=== PATIENT | female | born 1950 | race Caucasian/White ===

== ENCOUNTER 2017-04-10 13:14 | Inpatient (IN) | payer MEDICARE, OTHER ==
[~2017-04-10] VITALS: Ht 157.5 cm; Wt 76.9 kg
[2017-04-10] MEDS ORDERED: KETOROLAC TROMETH 30 MG/ML 1ML VIAL IV ONE (14:00)
[2017-04-10 14:24] LABS: Basophils # (auto) 0 uL; Basophils % (auto) 0.1 % (0.0-2.0); CONDITION Y; Eosinophils # (auto) 0 uL; Hematocrit 46.6 % (36.0-46.0); Hemoglobin 15.7 g/dL (12.2-16.2); Lymphocytes # (auto) 1.6 uL; Lymphocytes % (auto) 18.2 % (10.0-50.0); Mean Corpuscular Hemoglobin 30.9 pg (28.0-32.0); Mean Corpuscular Hgb Conc. 33.6 g/dL (32.0-36.0); Mean Platelet Volume 9.6 fL (7.4-10.4); Monocytes # (auto) 0.6 uL; Monocytes % (auto) 6.2 % (0.0-12.0); Neutrophils # (auto) 6.7 uL; Neutrophils % (auto) 75.5 % (37.0-80.0); Platelet Count (auto) 246 10^3/uL (140-450); Red Cell Distribution Width 13.3 % (11.6-16.0); SUSPECT SEE PRINTOUT; White Blood Cell 8.9 10^3/uL (4.4-10.8)
[2017-04-10 14:59] LABS: Albumin 3.6 g/dL (3.4-5.0); Bilirubin, Total 0.3 mg/dL (0.2-1.0); Calcium 9.2 mg/dL (8.5-10.1); Total Protein 6.8 g/dL (6.4-8.2)
[2017-04-10] MEDS ORDERED: ONDANSETRON HCL 4 MG/2 ML VIAL IV ONE (16:45)
[2017-04-10] MEDS ORDERED: MORPHINE SULFATE 4 MG/ML SYRG IV ONE (16:45)
[2017-04-10] MEDS ORDERED: ASPirin 81 mg TAB PO ONE (17:45)
[2017-04-10] MEDS ORDERED: ENOXAPARIN SOD 40 MG/0.4 ML SYRINGE SC ONE (17:45)
[2017-04-10 18:04] LABS: Urine Bilirubin Negative (Negative); Urine Blood Negative /uL (Negative); Urine Ca Oxalate Crystal MANY (None Seen); Urine Color Yellow (Yellow); Urine Glucose Normal (Normal); Urine Ketone Negative (Negative); Urine Mucus FEW (None Seen); Urine Nitrite Negative (Negative); Urine RBC 4 /hpf (0 - 4); Urine Squamous Epithelial Cell FEW /hpf (<5); Urine Urobilinogen Normal (Negative)
[2017-04-10] MEDS ORDERED: cefTRIAXone 1GM/50ML D5W 50 ML IV ONE (18:15)
[2017-04-10 20:30] VITALS: BP 88/42
[2017-04-10] MEDS: CLINDAMYCIN 600MG IV 50 ML IV SCH (21:51)
[2017-04-10] MEDS: HYDROcodone-ACET 5/325MG TAB PO PRN (21:55)
[2017-04-10] MEDS: BUDESONIDE (INHALATION) 0.5 MG/2 ML NEB NEB SCH (22:33)
[2017-04-10 22:46] VITALS: BP 88/42
[2017-04-11] MEDS: ONDANSETRON HCL 4 MG/2 ML VIAL IV PRN ×3 (00:29→22:20)
[2017-04-11] MEDS: MORPHINE SULF INJ 2 MG/ML SYRINGE 1ML IV PRN ×5 (00:29→22:20)
[2017-04-11 05:30] VITALS: BP 100/54
[2017-04-11] MEDS: CLINDAMYCIN 600MG IV 50 ML IV SCH ×3 (06:14→22:04)
[2017-04-11 08:00] VITALS: BP 111/63
[2017-04-11 09:00] VITALS: BP 111/63
[2017-04-11] MEDS: cefTRIAXone 1GM/50ML D5W 50 ML IV SCH (09:11)
[2017-04-11] MEDS: ENOXAPARIN SOD 40 MG/0.4 ML SYRINGE SC SCH (09:12)
[2017-04-11] MEDS: ASPirin 81 mg TAB PO SCH (09:12)
[2017-04-11] MEDS: BUDESONIDE (INHALATION) 0.5 MG/2 ML NEB NEB SCH ×2 (11:29→22:55)
[2017-04-11] MEDS: ALBUTEROL SULF 2.5 MG/0.5ML(0.5%) NEB SOLN NEB PRN (11:29)
[2017-04-11] MEDS ORDERED: ALBUTEROL SULF 2 MG/5ML ORAL SYRUP PO PRN (11:45)
[2017-04-11 13:00] VITALS: BP 110/62
[2017-04-11] MEDS ORDERED: MODA200T41 PO (14:31)
[2017-04-11] MEDS ORDERED: DEXT10TA PO (14:31)
[2017-04-11] MEDS ORDERED: MONT10TA34 PO (14:31)
[2017-04-11] MEDS ORDERED: ALBU2TAB4 PO (14:31)
[2017-04-11] MEDS ORDERED: VORT1TAB3 PO (14:31)
[2017-04-11] MEDS ORDERED: CYAN100023 PO (14:31)
[2017-04-11] MEDS ORDERED: LEVO750T64 PO (14:31)
[2017-04-11] MEDS ORDERED: FLUT250M2 IN (14:31)
[2017-04-11 16:49] VITALS: BP 117/51
[2017-04-11 22:00] VITALS: BP 119/75
[2017-04-12] VITALS (7 sets, daily range): BP systolic 96–130; BP diastolic 52–73
[2017-04-12] MEDS: MORPHINE SULF INJ 2 MG/ML SYRINGE 1ML IV PRN ×5 (04:39→21:59)
[2017-04-12] MEDS: ONDANSETRON HCL 4 MG/2 ML VIAL IV PRN (04:40)
[2017-04-12] MEDS: CLINDAMYCIN 600MG IV 50 ML IV SCH ×3 (05:51→21:58)
[2017-04-12] MEDS: cefTRIAXone 1GM/50ML D5W 50 ML IV SCH (09:02)
[2017-04-12] MEDS: ASPirin 81 mg TAB PO SCH (09:40)
[2017-04-12] MEDS: ENOXAPARIN SOD 40 MG/0.4 ML SYRINGE SC SCH (09:40)
[2017-04-12] MEDS: MODAFINIL 200 MG PO SCH (09:41)
[2017-04-12] MEDS: BUDESONIDE (INHALATION) 0.5 MG/2 ML NEB NEB SCH ×2 (09:57→22:00)
[2017-04-12] MEDS: ALBUTEROL SULF 2.5 MG/0.5ML(0.5%) NEB SOLN NEB PRN (09:57)
[2017-04-12] MEDS ORDERED: VORT1TAB3 PO (12:11)
[2017-04-12] MEDS ORDERED: DEXT10TA PO (12:11)
[2017-04-12] MEDS ORDERED: LEVOFLOXACIN 500 MG TAB PO ONE (12:15)
[2017-04-12] MEDS: HYDROcodone-ACET 5/325MG TAB PO PRN ×2 (14:50→20:51)
[2017-04-12] MEDS ORDERED: FLEET ENEMA(ADULT) 135 ML PR ONE (23:00)
[2017-04-13] MEDS: MORPHINE SULF INJ 2 MG/ML SYRINGE 1ML IV PRN ×3 (02:02→13:52)
[2017-04-13 05:30] VITALS: BP 128/65
[2017-04-13] MEDS: CLINDAMYCIN 600MG IV 50 ML IV SCH (05:58)
[2017-04-13 09:00] VITALS: BP 117/64
[2017-04-13] MEDS: cefTRIAXone 1GM/50ML D5W 50 ML IV SCH (09:21)
[2017-04-13] MEDS: ASPirin 81 mg TAB PO SCH (09:21)
[2017-04-13] MEDS: ENOXAPARIN SOD 40 MG/0.4 ML SYRINGE SC SCH (09:22)
[2017-04-13] MEDS: BUDESONIDE (INHALATION) 0.5 MG/2 ML NEB NEB SCH (10:00)
[2017-04-13] MEDS ORDERED: DEXTROAMPHETAMINE PO SCH (10:00)
[2017-04-13] MEDS ORDERED: TRINTELLIX 20MG PO SCH (10:00)
[2017-04-13] MEDS: MODAFINIL 200 MG PO SCH (10:00)
[2017-04-13 13:33] VITALS: BP 117/64
== END 2017-04-13 14:30 | DRG 544 ==
LOC: ER 13:16 → TELE 13:17 → WEST WING 20:18
PROVIDERS: ADMIT Internal Medicine; ATTEND Internal Medicine
DX: M84.471A Pathological fracture, right ankle, initial encounter for fracture (principal); G47.419 Narcolepsy without cataplexy; I83.90 Asymptomatic varicose veins of unspecified lower extremity; M17.11 Unilateral primary osteoarthritis, right knee; M25.471 Effusion, right ankle; J45.909 Unspecified asthma, uncomplicated; Z88.2 Allergy status to sulfonamides; Z88.0 Allergy status to penicillin; Z90.710 Acquired absence of both cervix and uterus; Z90.49 Acquired absence of other specified parts of digestive tract
CPT/HCPCS: 36415; 73590; 73721; 80053; 81001; 84439; 84443; 85025; 85379; 93306; 93971; 94640; 94761; 97163; J0696; J1885; J2405; J3490

== ENCOUNTER 2017-11-20 08:13 | Inpatient (IN) | payer OTHER ==
[~2017-11-20] VITALS: Ht 154.9 cm; Wt 81.8 kg
[~2017-11-20 08:13] MED LIST: ACYC400T PO; ALBU2TAB4 PO; ALBUAER3 IN; ALEN70TA55 PO; CETI10TA80 PO; CYAN1KIT IJ; DEXT10TA PO; FER325T PO; FLUT250M2 INH; HYDR-4683 PO; LEVO25TA6 PO; MODA200T50 PO; MONT10TA34 PO; MULTTAB61 PO; TIZA4TAB9 PO; VORT1TAB3 PO
[2017-11-20] MEDS ORDERED: PREGABALIN CAPSULE 75 MG CAP PO ONE (08:45)
[2017-11-20] MEDS ORDERED: ACETAMINOPHEN IV 1000 MG/100ML (10MG/ML) IV ONE (08:45)
[2017-11-20] MEDS ORDERED: CELECOXIB 100 MG CAP PO ONE (08:45)
[2017-11-20] MEDS ORDERED: LIDOCAINE 1% (LOCAL ANESTH.) PF 5ml SDV ONE (09:56)
[2017-11-20] MEDS ORDERED: ROPIVACAINE 0.5% (5MG/ML) 20ML AMPULE IJ ONE (09:56)
[2017-11-20] MEDS ORDERED: BUPIVACAINE W/ EPINEPH 0.25% INJ 50ML MDV ONE (10:29)
[2017-11-20] MEDS ORDERED: TRANEXAMIC ACID 1,000 mg/10ml INJ VIAL ONE (10:29)
[2017-11-20] MEDS ORDERED: KETOROLAC TROMETH 30 MG/ML 1ML VIAL ONE (10:32)
[2017-11-20] MEDS ORDERED: MORPHINE SULF(PF) 0.5MG/ML 10ML VIAL ONE (10:32)
[2017-11-20] MEDS ORDERED: VANCOMYCIN HCL 1000 MG VL ONE (10:32)
[2017-11-20] MEDS ORDERED: ceFAZolin 1GM/50ML 100 ML IV ONE (10:39)
[2017-11-20] MEDS ORDERED: SUCCINYLCHOLINE CHLORIDE 20 MG/ML 10ML VIAL IV ONE (10:40)
[2017-11-20] MEDS ORDERED: MIDAZOLAM HCL 1MG/1ML-2 ML VIAL ONE ×2 (10:42→13:50)
[2017-11-20] MEDS ORDERED: PROPOFOL 10 MG/ML 20 ML IV ONE ×2 (10:48→10:49)
[2017-11-20] MEDS ORDERED: ROCURONIUM 10MG/ML 10ML VIAL IV ONE (10:49)
[2017-11-20] MEDS ORDERED: fentaNYL CITRATE 100 MCG/2 ML VL ONE ×2 (11:03→11:56)
[2017-11-20] MEDS ORDERED: NALOXONE HCL 0.4 MG/ML VIAL IV PRN (11:30)
[2017-11-20] MEDS ORDERED: ONDANSETRON HCL 4 MG/2 ML VIAL IV ONE (11:30)
[2017-11-20] MEDS ORDERED: ceFAZolin 1GM VL ONE (11:35)
[2017-11-20] MEDS ORDERED: hydrALAZINE HCL 20 MG/ML VL ONE (12:04)
[2017-11-20] MEDS ORDERED: ALBUTEROL SULFATE IN SCH (13:45)
[2017-11-20] MEDS ORDERED: LORATADINE 10 MG TAB PO PRN (13:45)
[2017-11-20] MEDS: LACTATED RINGER'S 1,000 ML IV SCH ×2 (13:47→23:47)
[2017-11-20] MEDS: MORPHINE SULFATE 4 MG/ML SYR/VIAL IV PRN ×4 (13:48→15:08)
[2017-11-20] MEDS: MIDAZOLAM HCL 1MG/1ML-2 ML VIAL IV PRN ×3 (13:54→14:55)
[2017-11-20] MEDS ORDERED: ACETAMINOPHEN 325 MG TAB PO PRN (14:00)
[2017-11-20] MEDS ORDERED: diphenhdrAMINE HCL 25 MG CAP PO PRN (14:00)
[2017-11-20] MEDS ORDERED: HYDROmorphone HCL 2 MG/ML VL IV PRN (14:00)
[2017-11-20] MEDS ORDERED: BISACODYL 5 MG EC TAB PO PRN (14:00)
[2017-11-20] MEDS ORDERED: NITROGLYCERIN 0.4 MG SL TAB SL PRN (14:00)
[2017-11-20] MEDS ORDERED: MORPHINE SULFATE 4 MG/ML SYR/VIAL IV PRN ×2 (14:00)
[2017-11-20 16:47] VITALS: BP 135/82
[2017-11-20] MEDS ORDERED: ALBUTEROL SULF 2.5 MG/0.5ML(0.5%) NEB SOLN NEB PRN (18:00)
[2017-11-20] MEDS: ceFAZolin 1GM/50ML 50 ML IV SCH (18:40)
[2017-11-20] MEDS: KETOROLAC TROMETH 30 MG/ML 1ML VIAL IV SCH (18:40)
[2017-11-20 19:50] VITALS: BP 132/72
[2017-11-20] MEDS: DOCUSATE SOD 100 MG CAP PO SCH (21:56)
[2017-11-20] MEDS: oxyCODONE ER 20 MG TAB PO SCH (21:56)
[2017-11-20] MEDS: TIZANIDINE 4 MG PO SCH (21:57)
[2017-11-20 22:00] VITALS: BP 132/72
[2017-11-20] MEDS ORDERED: PATIENTS OWN MEDICATION (Fluticasone-Salmeterol (Advair Diskus 250/50) 1 PUFF) INH SCH (22:00)
[2017-11-20] MEDS: BUDESONIDE (INHALATION) 0.5 MG/2 ML NEB NEB SCH (22:17)
[2017-11-20] MEDS: ALBUTEROL SULF 2.5 MG/0.5ML(0.5%) NEB SOLN NEB SCH (22:17)
[2017-11-20 22:21] VITALS: BP 135/82
[2017-11-21] MEDS: KETOROLAC TROMETH 30 MG/ML 1ML VIAL IV SCH ×4 (00:48→18:23)
[2017-11-21] MEDS: ceFAZolin 1GM/50ML 50 ML IV SCH ×2 (00:48→06:20)
[2017-11-21] MEDS: OXYCODONE W/ ACETAMINOPHEN 5/325MG TABLET PO PRN ×3 (04:56→16:54)
[2017-11-21 05:00] VITALS: BP 126/76
[2017-11-21] MEDS: LEVOTHYROXINE SODIUM 25 MCG TAB PO SCH (06:21)
[2017-11-21] MEDS: ALBUTEROL SULF 2.5 MG/0.5ML(0.5%) NEB SOLN NEB SCH ×3 (06:38→19:02)
[2017-11-21 06:59] LABS: Albumin 3.2 g/dL (3.4-5.0); BUN/Creatinine Ratio 36.4; Bilirubin, Total 0.7 mg/dL (0.2-1.0); Calcium 7.9 mg/dL (8.5-10.1); Potassium 3.8 mmol/L (3.5-5.1); Total Protein 5.8 g/dL (6.4-8.2)
[2017-11-21 07:09] LABS: Basophils # (auto) 0 uL; Basophils % (auto) 0.1 % (0.0-2.0); Eosinophils # (auto) 0 uL; Eosinophils % (auto) 0.2 % (0.0-7.0); Hematocrit 38.6 % (36.0-46.0); Hemoglobin 13.1 g/dL (12.2-16.2); Lymphocytes % (auto) 9.2 % (10.0-50.0); Mean Corpuscular Hemoglobin 32.1 pg (28.0-32.0); Mean Corpuscular Hgb Conc. 33.9 g/dL (32.0-36.0); Mean Corpuscular Volume 94.5 fL (80.0-100.0); Monocytes % (auto) 9.1 % (0.0-12.0); Neutrophils # (auto) 8.8 uL; Neutrophils % (auto) 81.4 % (37.0-80.0); Platelet Count (auto) 169 10^3/uL (140-450); Red Blood Cells 4.09 10^6/uL (4.0-5.20); Red Cell Distribution Width 13.8 % (11.8-14.3); White Blood Cell 10.8 10^3/uL (4.4-10.8)
[2017-11-21] MEDS: MORPHINE SULFATE 4 MG/ML SYR/VIAL IV PRN ×7 (07:20→20:53)
[2017-11-21 09:00] VITALS: BP 125/58
[2017-11-21] MEDS: LACTATED RINGER'S 1,000 ML IV SCH ×2 (09:40→19:47)
[2017-11-21] MEDS: MULTIPLE VITAMIN TAB PO SCH (09:43)
[2017-11-21] MEDS: ACYCLOVIR 400 MG TAB PO SCH (09:43)
[2017-11-21] MEDS: FERROUS SULFATE 325 MG TAB PO SCH (09:43)
[2017-11-21] MEDS: MONTELUKAST SODIUM 10 MG TAB PO SCH (09:43)
[2017-11-21] MEDS: DOCUSATE SOD 100 MG CAP PO SCH ×2 (09:43→22:01)
[2017-11-21] MEDS: oxyCODONE ER 20 MG TAB PO SCH ×2 (09:44→22:01)
[2017-11-21] MEDS: ENOXAPARIN SOD 30 MG/0.3 ML SYRINGE SC SCH (09:46)
[2017-11-21] MEDS: DEXTROAMPHETAMINE SULFATE 30 MG PO SCH (09:47)
[2017-11-21] MEDS: TIZANIDINE 4 MG PO SCH ×2 (09:47→22:00)
[2017-11-21] MEDS: BUDESONIDE (INHALATION) 0.5 MG/2 ML NEB NEB SCH ×2 (10:20→19:02)
[2017-11-21] MEDS: ONDANSETRON HCL 4 MG/2 ML VIAL IV PRN (11:00)
[2017-11-21] MEDS: VORTIOXETINE 20 MG PO SCH (12:06)
[2017-11-21] MEDS ORDERED: MORPHINE SULFATE 4 MG/ML SYR/VIAL ONE (12:59)
[2017-11-21 13:00] VITALS: BP 136/85
[2017-11-21 21:56] VITALS: BP 117/59
[2017-11-22] MEDS: KETOROLAC TROMETH 30 MG/ML 1ML VIAL IV SCH (00:15)
[2017-11-22] MEDS: MORPHINE SULFATE 4 MG/ML SYR/VIAL IV PRN ×6 (01:34→19:52)
[2017-11-22 05:08] VITALS: BP 111/61
[2017-11-22] MEDS: LACTATED RINGER'S 1,000 ML IV SCH ×2 (05:29→15:16)
[2017-11-22] MEDS ORDERED: ALENDRONATE 70 MG PO SCH (06:00)
[2017-11-22] MEDS: LEVOTHYROXINE SODIUM 25 MCG TAB PO SCH (06:07)
[2017-11-22] MEDS: OXYCODONE W/ ACETAMINOPHEN 5/325MG TABLET PO PRN (06:07)
[2017-11-22] MEDS ORDERED: HYDROcodone-ACET 10/325MG TAB PO ONE (07:15)
[2017-11-22] MEDS: ALBUTEROL SULF 2.5 MG/0.5ML(0.5%) NEB SOLN NEB SCH ×3 (07:52→22:37)
[2017-11-22] MEDS: BUDESONIDE (INHALATION) 0.5 MG/2 ML NEB NEB SCH ×2 (08:05→22:37)
[2017-11-22] MEDS: HYDROcodone-ACET 10/325MG TAB PO PRN ×3 (08:51→22:19)
[2017-11-22 09:00] VITALS: BP 107/56
[2017-11-22] MEDS: TIZANIDINE 4 MG PO SCH ×2 (10:00→22:00)
[2017-11-22] MEDS: DEXTROAMPHETAMINE SULFATE 30 MG PO SCH (10:00)
[2017-11-22] MEDS: MULTIPLE VITAMIN TAB PO SCH (10:30)
[2017-11-22] MEDS: FERROUS SULFATE 325 MG TAB PO SCH (10:30)
[2017-11-22] MEDS: ACYCLOVIR 400 MG TAB PO SCH (10:30)
[2017-11-22] MEDS: MONTELUKAST SODIUM 10 MG TAB PO SCH (10:30)
[2017-11-22] MEDS: oxyCODONE ER 20 MG TAB PO SCH ×2 (10:30→22:04)
[2017-11-22] MEDS: DOCUSATE SOD 100 MG CAP PO SCH ×2 (10:30→22:04)
[2017-11-22] MEDS: VORTIOXETINE 20 MG PO SCH (10:31)
[2017-11-22] MEDS: ENOXAPARIN SOD 30 MG/0.3 ML SYRINGE SC SCH (10:33)
[2017-11-22 12:00] VITALS: BP 89/44
[2017-11-22] MEDS: traMADol HCL 50 MG TAB PO PRN ×2 (12:08→18:45)
[2017-11-22] MEDS: ONDANSETRON HCL 4 MG/2 ML VIAL IV PRN (13:50)
[2017-11-22 15:00] VITALS: BP 82/49
[2017-11-22 22:00] VITALS: BP 111/55
[2017-11-23] VITALS (7 sets, daily range): BP systolic 88–137; BP diastolic 32–56
[2017-11-23] MEDS: LACTATED RINGER'S 1,000 ML IV SCH ×2 (00:29→13:32)
[2017-11-23] MEDS: MORPHINE SULFATE 4 MG/ML SYR/VIAL IV PRN ×6 (01:55→20:02)
[2017-11-23] MEDS: traMADol HCL 50 MG TAB PO PRN ×2 (03:16→15:17)
[2017-11-23] MEDS: ALBUTEROL SULF 2.5 MG/0.5ML(0.5%) NEB SOLN NEB SCH ×2 (06:00→22:00)
[2017-11-23] MEDS: HYDROcodone-ACET 10/325MG TAB PO PRN ×3 (06:02→15:52)
[2017-11-23] MEDS: BUDESONIDE (INHALATION) 0.5 MG/2 ML NEB NEB SCH ×2 (07:31→22:00)
[2017-11-23] MEDS: LEVOTHYROXINE SODIUM 25 MCG TAB PO SCH (08:42)
[2017-11-23] MEDS: FERROUS SULFATE 325 MG TAB PO SCH (09:13)
[2017-11-23] MEDS: MULTIPLE VITAMIN TAB PO SCH (09:13)
[2017-11-23] MEDS: DOCUSATE SOD 100 MG CAP PO SCH ×2 (09:13→22:10)
[2017-11-23] MEDS: MONTELUKAST SODIUM 10 MG TAB PO SCH (09:13)
[2017-11-23] MEDS: oxyCODONE ER 20 MG TAB PO SCH ×2 (09:14→22:11)
[2017-11-23] MEDS: VORTIOXETINE 20 MG PO SCH (09:14)
[2017-11-23] MEDS: TIZANIDINE 4 MG PO SCH ×2 (09:15→22:00)
[2017-11-23] MEDS: ENOXAPARIN SOD 30 MG/0.3 ML SYRINGE SC SCH (09:15)
[2017-11-23] MEDS: DEXTROAMPHETAMINE SULFATE 30 MG PO SCH (10:00)
[2017-11-23] MEDS: ACYCLOVIR 400 MG TAB PO SCH (15:00)
[2017-11-24] MEDS: MORPHINE SULFATE 4 MG/ML SYR/VIAL IV PRN ×4 (00:32→11:13)
[2017-11-24 05:00] VITALS: BP 124/64
[2017-11-24] MEDS: LEVOTHYROXINE SODIUM 25 MCG TAB PO SCH (06:36)
[2017-11-24] MEDS: ALBUTEROL SULF 2.5 MG/0.5ML(0.5%) NEB SOLN NEB SCH (06:38)
[2017-11-24] MEDS: BUDESONIDE (INHALATION) 0.5 MG/2 ML NEB NEB SCH (06:38)
[2017-11-24] MEDS ORDERED: DIAZEPAM 5 MG TAB PO PRN (07:30)
[2017-11-24 08:59] VITALS: BP 125/65
[2017-11-24] MEDS: MULTIPLE VITAMIN TAB PO SCH (09:52)
[2017-11-24] MEDS: FERROUS SULFATE 325 MG TAB PO SCH (09:52)
[2017-11-24] MEDS: oxyCODONE ER 20 MG TAB PO SCH (09:52)
[2017-11-24] MEDS: DOCUSATE SOD 100 MG CAP PO SCH (09:52)
[2017-11-24] MEDS: MONTELUKAST SODIUM 10 MG TAB PO SCH (09:52)
[2017-11-24] MEDS: ENOXAPARIN SOD 30 MG/0.3 ML SYRINGE SC SCH (09:53)
[2017-11-24] MEDS: ACYCLOVIR 400 MG TAB PO SCH (09:53)
[2017-11-24] MEDS: DEXTROAMPHETAMINE SULFATE 30 MG PO SCH (10:00)
[2017-11-24] MEDS: VORTIOXETINE 20 MG PO SCH (10:00)
[2017-11-24] MEDS: TIZANIDINE 4 MG PO SCH (10:00)
[2017-11-24] MEDS: ONDANSETRON HCL 4 MG/2 ML VIAL IV PRN (10:09)
[2017-11-24 13:00] VITALS: BP 102/51
== END 2017-11-24 13:38 | disposition home health service (06) | DRG 470 ==
LOC: SUR 08:13 → WEST WING 08:14
PROVIDERS: ADMIT Orthopaedic Surgery Adult Reconstructive Orthopaedic Surgery; ATTEND Orthopaedic Surgery Adult Reconstructive Orthopaedic Surgery
PROC: 0SRC0J9 Replacement of Right Knee Joint with Synthetic Substitute, Cemented, Open Approach (ICD-10-PCS; principal; 2017-11-21)
DX: M17.11 Unilateral primary osteoarthritis, right knee (principal); J44.9 Chronic obstructive pulmonary disease, unspecified; E03.9 Hypothyroidism, unspecified; M81.0 Age-related osteoporosis without current pathological fracture; G89.29 Other chronic pain; Z90.710 Acquired absence of both cervix and uterus; Z88.0 Allergy status to penicillin; F43.10 Post-traumatic stress disorder, unspecified; G47.419 Narcolepsy without cataplexy
CPT/HCPCS: 36415; 73562; 80053; 85025; 94640; 97116; 97163; 97530; C1713; J0131; J0330; J0690; J1885; J2250; J2405; J2704

== ENCOUNTER 2017-12-18 15:15 | Emergency (ER) | payer OTHER ==
[~2017-12-18] VITALS: Ht 157.5 cm; Wt 67.6 kg
[2017-12-18 16:48] LABS: Basophils # (auto) 0 uL; Basophils % (auto) 0.7 % (0.0-2.0); Eosinophils # (auto) 0.4 uL; Eosinophils % (auto) 5.9 % (0.0-7.0); Hematocrit 39.6 % (36.0-46.0); Hemoglobin 12.8 g/dL (12.2-16.2); Lymphocytes # (auto) 2.2 uL; Lymphocytes % (auto) 34.2 % (10.0-50.0); Mean Corpuscular Hemoglobin 30.7 pg (28.0-32.0); Mean Corpuscular Hgb Conc. 32.4 g/dL (32.0-36.0); Mean Corpuscular Volume 94.8 fL (80.0-100.0); Monocytes # (auto) 0.4 uL; Monocytes % (auto) 6.5 % (0.0-12.0); Neutrophils # (auto) 3.4 uL; Neutrophils % (auto) 52.7 % (37.0-80.0); Platelet Count (auto) 236 10^3/uL (140-450); Red Blood Cells 4.18 10^6/uL (4.0-5.20); Red Cell Distribution Width 15.2 % (11.8-14.3); White Blood Cell 6.4 10^3/uL (4.4-10.8)
[2017-12-18 17:00] VITALS: BP 121/75
[2017-12-18 17:12] LABS: Albumin 3.6 g/dL (3.4-5.0); Bilirubin, Total 0.3 mg/dL (0.2-1.0); Potassium 4.2 mmol/L (3.5-5.1); Total Protein 7.1 g/dL (6.4-8.2)
== END 2017-12-18 18:19 | disposition home or self-care (01) ==
LOC: ER 15:15
DX: M79.604 Pain in right leg (principal); J45.909 Unspecified asthma, uncomplicated; E07.9 Disorder of thyroid, unspecified; Z88.1 Allergy status to other antibiotic agents; Z88.0 Allergy status to penicillin; Z86.718 Personal history of other venous thrombosis and embolism; Z96.651 Presence of right artificial knee joint
CPT/HCPCS: 36415; 80053; 85025; 93005; 93971

== ENCOUNTER 2019-07-21 14:42 | Inpatient (IN) | payer OTHER ==
[~2019-07-21] VITALS: Ht 157.5 cm; Wt 89.5 kg
[~2019-07-21 14:42] MED LIST changes: +ACYC-161 PO; -ACYC400T PO; +ALEN1TAB32 PO; -ALEN70TA55 PO; -HYDR-4683 PO; +HYDR-4833 PO
[2019-07-21] MEDS ORDERED: ONDANSETRON HCL 4 MG/2 ML VIAL IV ONE ×2 (15:30→18:15)
[2019-07-21] MEDS ORDERED: TETANUS-DIPTH-ACEL PERTUSSIS 0.5ML SYRG IM ONE (15:30)
[2019-07-21] MEDS ORDERED: MORPHINE SULF INJ 2 MG/ML SYRINGE 1ML IV ONE ×2 (15:30→18:15)
[2019-07-21] MEDS ORDERED: SODIUM CHLORIDE 0.9% 1,000 ML IVB ONE (18:12)
[2019-07-21 19:10] LABS: Basophils # (auto) 0 uL; Basophils % (auto) 0.5 % (0.0-2.0); Eosinophils # (auto) 0.2 uL; Eosinophils % (auto) 2.1 % (0.0-7.0); Hematocrit 41.7 % (36.0-46.0); Hemoglobin 13.9 g/dL (12.2-16.2); Lymphocytes # (auto) 2.1 uL; Lymphocytes % (auto) 24.4 % (10.0-50.0); Mean Corpuscular Hemoglobin 32.1 pg (28.0-32.0); Mean Corpuscular Hgb Conc. 33.3 g/dL (32.0-36.0); Mean Corpuscular Volume 96.3 fL (80.0-100.0); Monocytes # (auto) 0.7 uL; Monocytes % (auto) 8.6 % (0.0-12.0); Neutrophils # (auto) 5.6 uL; Neutrophils % (auto) 64.4 % (37.0-80.0); Platelet Count (auto) 182 10^3/uL (140-450); Red Blood Cells 4.33 10^6/uL (4.0-5.20); Red Cell Distribution Width 13.9 % (11.8-14.3); White Blood Cell 8.7 10^3/uL (4.4-10.8)
[2019-07-21 19:27] LABS: Albumin 3.6 g/dL (3.4-5.0); BUN/Creatinine Ratio 33.7; Calcium 8.5 mg/dL (8.5-10.1); Magnesium 2.5 mg/dL (1.6-2.6); Potassium 3.9 mmol/L (3.5-5.1)
[2019-07-21 19:31] LABS: Bilirubin, Total 0.4 mg/dL (0.2-1.0); Total Protein 6.4 g/dL (6.4-8.2)
[2019-07-21] MEDS ORDERED: HYDROcodone-ACET 5/325MG TAB PO PRN (20:00)
[2019-07-21] MEDS ORDERED: ALBUTEROL SULF 2.5 MG/0.5ML(0.5%) NEB SOLN NEB PRN (20:00)
[2019-07-21] MEDS ORDERED: ONDANSETRON HCL 4 MG/2 ML VIAL IV PRN (20:00)
[2019-07-21] MEDS ORDERED: ACETAMINOPHEN 500 MG TAB PO PRN (20:00)
[2019-07-21] MEDS ORDERED: IPRATROPIUM BROM 0.5 MG/2.5ML INH SOL NEB PRN (20:00)
[2019-07-21 20:30] VITALS: BP 116/44
[2019-07-21 21:35] VITALS: BP 108/62
--- NOTE | 2019-07-21 21:35 | NUR ---
MS admit from ER [place] admitted to tele/MS after SBAR received. Patient oriented to VERA ADAN, RN primary RN, [place] unit,287 room, A bed, and unit policies regarding patient care and visiting hours. Patient weighed by bedscale and encouraged to call if they need something. All questions and concerns addressed, patient verbalized understanding. Patient complain of pain due to mechanical fall will administer pain medication PRN by MD orders.
--- NOTE | 2019-07-21 21:59 | NUR ---
Page Hospitalist Patrizia. Need a diet order.
--- NOTE | 2019-07-21 22:02 | NUR ---
Hospitalist Kelly called back. Orders of Regular Diet.
--- NOTE | 2019-07-21 22:32 | NUR ---
Respiratory note: ASSESSED PT FOR PRN MED NEB AT THIS TIME, PT DENIES SOB AT THIS TIME, NO RESP DISTRESS NOTED, NO TX INDICATED, PULSE OX 97% ON RA, HR 68, RR 22, BILATERAL BS CLEAR.
[2019-07-21] MEDS: MORPHINE SULF INJ 2 MG/ML SYRINGE 1ML IV PRN (22:35)
--- NOTE | 2019-07-22 | NUR ---
Josephine hospitalist due to patient in severe pain after PRN pain medication. Waiting to call back
--- NOTE | 2019-07-22 00:11 | NUR ---
Hospitalist Kelly called back. Order one time dose of Morphine 2mg IV and morning labs of CBC. Hospitalist wants to be notify if pain is not manage after morphine reassessment. Repeated orders to verify. Will follow as order.
[2019-07-22] MEDS ORDERED: MORPHINE SULF INJ 2 MG/ML SYRINGE 1ML IV ONE (00:30)
--- NOTE | 2019-07-22 01:18 | NUR ---
Josephine hospitalist about patient's pain management not meant. Pain remind the same. Hospitalist Kelly order a one time dose of Dilaudid 1mg Iv. Repeated orders to verified. Will follow as instructed.
[2019-07-22] MEDS ORDERED: HYDROmorphone HCL 2 MG/ML VL IM ONE (01:30)
[2019-07-22] MEDS ORDERED: HYDROmorphone HCL 2 MG/ML VL IV ONE (01:30)
[2019-07-22 04:54] VITALS: BP 87/50
--- NOTE | 2019-07-22 05:00 | NUR ---
Josephine Hospitalist about patient low BP 87/49, Order a bolus of 500 ml of normal saline one time dose and to reassess her BP pressure manually. Read orders to verify.
--- NOTE | 2019-07-22 05:45 | NUR ---
Reassess patient blood pressure 112/51
[2019-07-22 05:55] LABS: Basophils # (auto) 0 uL; Basophils % (auto) 0.6 % (0.0-2.0); Eosinophils # (auto) 0.3 uL; Eosinophils % (auto) 4.3 % (0.0-7.0); Hematocrit 35.1 % (36.0-46.0); Lymphocytes % (auto) 29.1 % (10.0-50.0); Mean Corpuscular Hgb Conc. 34.3 g/dL (32.0-36.0); Mean Corpuscular Volume 96.3 fL (80.0-100.0); Monocytes # (auto) 0.6 uL; Monocytes % (auto) 8.8 % (0.0-12.0); Neutrophils # (auto) 3.9 uL; Neutrophils % (auto) 57.2 % (37.0-80.0); Platelet Count (auto) 172 10^3/uL (140-450); Red Blood Cells 3.64 10^6/uL (4.0-5.20); Red Cell Distribution Width 13.7 % (11.8-14.3); White Blood Cell 6.8 10^3/uL (4.4-10.8)
[2019-07-22] MEDS ORDERED: SODIUM CHLORIDE 0.9% 500 ML IV ONE (06:15)
[2019-07-22] MEDS: MORPHINE SULF INJ 2 MG/ML SYRINGE 1ML IV PRN ×3 (07:02→15:55)
--- NOTE | 2019-07-22 07:14 | NUR ---
Opening Shift Note Assumed care of patient, awake and alert. No S/S of distress/SOB or pain. Instructed on POC and to call for assist PRN, will continue to monitor for changes Q1hr and PRN.
[2019-07-22 08:14] VITALS: BP 90/59
--- NOTE | 2019-07-22 08:30 | NUR ---
Respiratory note: PT IS AWAKE, AND ALERT. NO RESPIRATORY DISTRESS NOTED. SPO2 95% ON RA, HR 73, RR 18, BS CLEAR BILATERALLY. NO PRN MEDNEB TX INDICATED AT THIS TIME. PT INFORMED TO PUSH CALL BUTTON IF INCREASED WOB, SOB, OR WHEEZING OCCURS.
--- NOTE | 2019-07-22 08:51 | NUR ---
per pt her blood pressure typical runs low because she is off her narcolepsy meds, pt has list at bedside
[2019-07-22 09:00] VITALS: BP 112/51
[2019-07-22] MEDS: FAMOTIDINE 20 MG TAB PO SCH (09:56)
--- NOTE | 2019-07-22 11:06 | NUR ---
updated pt on md assigned for todays care and also updated pt that i will ask md for stronger pain management and vte prophylaxis, pt also requested a room change due to noisy roomate and visitors charge nurse made aware
[2019-07-22 13:00] VITALS: BP 91/46
--- NOTE | 2019-07-22 14:00 | NUR ---
CALLED MD CHANDLER FOR PAIN MNGT ORDER
--- NOTE | 2019-07-22 14:15 | NUR ---
MD CHANDLER CALLLED BACK NEW ORDERS NTED DENIED DILAUDID REQUEST, UPDATED PT PT WANTS TO SPEAK TO CHARGE NURSE AND DIRECTOR, CHARGE NURSE NOTIFIED
--- NOTE | 2019-07-22 14:27 | NUR ---
RECIEVED CALL FROM [facility] STATED PT CALLED THEM WITH DISSATISFACTION OF CASSIA
[2019-07-22] MEDS ORDERED: OXYCODONE W/ ACETAMINOPHEN 5/325MG TABLET ONE (14:36)
[2019-07-22] MEDS: OXYCODONE W/ ACETAMINOPHEN 5/325MG TABLET PO PRN ×2 (14:39→20:29)
--- NOTE | 2019-07-22 14:55 | NUR ---
CHARGE NURSE WENT TO PT ROOM TO TALK AND PT WAS ON PHONE TOLD HER TO COME BACK LATER
--- NOTE | 2019-07-22 15:20 | NUR ---
WOUND CARE NOTE: Wound care consult received for hematoma. Patient is a 69 yo female admitted s/p mechanical fall and large gluteal/sacral hematoma. Patient with a history of asthma, DJD of bilateral knees, appy, hysterectomy and total bilateral hip replacement. Patient is alert and is currently in pain and is awaiting medication. Patient seen with bedside RN, Rosamaria. Last Jonathan score is 20. Patient is able to turn self. Patient with a large hematoma to left gluteal/hip area with a small open area (1x1cm) that appears to be a skin tear. No drainage noted. Wound bed is red. RECOMMENDATIONS: Nursing to cleanse skin tear with NS pat dry, apply therahoney gel and cover with optifoam, change every other day and PRN; no further need by wound care team.
--- NOTE | 2019-07-22 15:24 | NUR ---
WOUND CARE TO SEE PT SANTOONEY AND FOAM DRESSING ON OPEN AREA OF HEMATOMA. PT ALSO STATED "MY SPOKE TO YOUR DIRECTOR HE STATED WE DO NOT HAVE A AIR MOTOR REPAIRER STAFFED AT THIS HOSPITAL" MADE PT AWARE WE DO HAVE HEMATLOGIST ON STAFF AND NOTFIED CHARGE NURSE OF PT CONCERNS, PER PT "THE CHARGE JUST CAME IN AND WAVED SHE DIDNT TALK TO ME" PT WAS ON PHONE AND TOLD CHARGE TO COME BACK LATER STATED IN PREVIOUS NOTE ENTRY
--- NOTE | 2019-07-22 16:32 | NUR ---
md kam rounded on patient addressed all pts concerns and questions, addressed with pt that pain will be there as the hematoma runs it course, addressed that pt does not need blood thinners or a supervisor travel trailer does not need to see pt, new orders for pain management noted
[2019-07-22 17:00] VITALS: BP 110/51
[2019-07-22] MEDS ORDERED: MORPHINE SULF INJ 2 MG/ML SYRINGE 1ML IV PRN ×2 (17:15)
--- NOTE | 2019-07-22 20:32 | NUR ---
open note assumed care of pt. upon entering room pt awake, alert and oriented x4. pt on room air no distress noted or expressed. pt reports pain located in left buttock, pt has large hematoma. will medicate per MD and MAR order. pt updated on plan of care, no questions at this time. pt bed locked, low and 2x rails up. pt call light in reach, this nurse will round q1hr and prn.
[2019-07-22] MEDS: SENNA 8.6 MG TAB PO SCH (21:47)
[2019-07-22] MEDS: MORPHINE SULF 15mg ER tab PO SCH (21:47)
[2019-07-22 21:51] VITALS: BP 91/49
--- NOTE | 2019-07-22 22:35 | NUR ---
Respiratory note: PT SEEN AND ASSESSED FOR PRN MED NEB TX AT 2235. TX IS NOT INDICATED AT THIS TIME. THE PT IS DISPLAYING NO SIGNS OF RESPIRATORY DISTRESS, SHE STATED THAT HASN'T HAD ANY ISSUES WITH HER ASTHMA AND KNOWS TO CALL IF SHE EXPERIENCES ANY ISSUES. HR 70 RR 16 POX 94% ON ROOM AIR.
[2019-07-23] MEDS: OXYCODONE W/ ACETAMINOPHEN 5/325MG TABLET PO PRN ×3 (01:59→20:15)
[2019-07-23 05:00] VITALS: BP 94/43
[2019-07-23] MEDS: MORPHINE SULF 15mg ER tab PO SCH ×3 (06:30→22:08)
[2019-07-23 06:46] LABS: Hematocrit 31.9 % (36.0-46.0)
[2019-07-23 07:05] LABS: INR 1.07 (0.9-1.15); Partial Thromboplastin Time 27.3 sec (23.64-32.05)
--- NOTE | 2019-07-23 08:00 | NUR ---
Opening Shift Note Assumed care of patient, awake, alert and oriented X4. No S/S of distress/SOB, complains of left buttock pain, 6/10, informed will medicate with prescribed velazquez medication. IV to left wrist, 22 gauge, patent and saline locked. Left buttock and sacrum with bruising and swelling, dressing to inner left gluteal fold with moderate serosanguineous drainage. Instructed on POC and to call for assist PRN, verbalized understanding. Bd locked, in lowest position, call light within reach, will continue to monitor for changes Q1hr and PRN.
[2019-07-23 08:14] VITALS: BP 93/42
[2019-07-23] MEDS: MODAFINIL 200 MG PO SCH (09:57)
[2019-07-23] MEDS: DEXTROAMPHETAMINE PO SCH (09:57)
[2019-07-23] MEDS: OXYBUTYNIN CHL 5 MG TAB PO SCH (09:57)
[2019-07-23] MEDS: BUPROPION 150 MG PO SCH (09:57)
[2019-07-23] MEDS: FAMOTIDINE 20 MG TAB PO SCH (09:58)
[2019-07-23] MEDS: FLUoxetine HCL 20 MG CAP PO SCH (09:58)
[2019-07-23] MEDS: TOPIRAMATE 25 MG TAB PO SCH (09:58)
[2019-07-23] MEDS: ACYCLOVIR 400 MG TAB PO SCH (09:58)
[2019-07-23 12:44] VITALS: BP 88/39
--- NOTE | 2019-07-23 14:18 | NUR ---
SPOKE TO ON THE PHONE, HE SAID HE WAS IN SURGERY AND HE WILL COME TO SEE THE PATIENT LATER FOR SURGICAL CONSULT.
--- NOTE | 2019-07-23 16:20 | NUR ---
SURGICAL Dr Rodríguez at bedside for Surgical consult, no new orders. Plan of care discussed with patient, verbalized understanding.
[2019-07-23 16:25] VITALS: BP 82/45
--- NOTE | 2019-07-23 19:07 | NUR ---
ASSESSED PT @ THIS TIME FOR PRN MED NEB TX. PT IS AWAKE AND ALERT AND RESTING COMFORTABLY IN BED. SHE STATES HER BREATHING IS DOING FINE. NO DISTRESS NOTED. CURRENTLY ON R/A SPO2 94%, HR 68, RR 18 AND BS ARE CLEAR T/O. SHE IS AWARE TO CALL IF SHE FEELS SOB.
--- NOTE | 2019-07-23 19:17 | NUR ---
Care endorsed to DREW Andrews, night nurse.
--- NOTE | 2019-07-23 19:50 | NUR ---
open note assumed care of pt. upon entering room pt awake, alert and oriented x4. pt on room air no distress noted or expressed. pt bed locked, low and 2x rails up. pt updated on plan of care, no questions at this time. call light in reach, will round on pt q1hr and prn. this nurse encouraged pt to call as needed.
[2019-07-23 22:00] VITALS: BP 99/57
[2019-07-23] MEDS: SODIUM CHLORIDE 0.9% 1,000 ML IV SCH (22:08)
[2019-07-23] MEDS: SENNA 8.6 MG TAB PO SCH (22:09)
[2019-07-24] MEDS: OXYCODONE W/ ACETAMINOPHEN 5/325MG TABLET PO PRN ×3 (00:07→10:48)
[2019-07-24] MEDS: SODIUM CHLORIDE 0.9% 1,000 ML IV SCH (04:41)
[2019-07-24 05:00] VITALS: BP 107/54
[2019-07-24] MEDS: MORPHINE SULF 15mg ER tab PO SCH ×2 (06:30→13:49)
[2019-07-24 07:16] LABS: Hematocrit 31.1 % (36.0-46.0); Hemoglobin 10.7 g/dL (12.2-16.2)
[2019-07-24 07:36] LABS: BUN/Creatinine Ratio 37.7
--- NOTE | 2019-07-24 08:00 | NUR ---
Opening Shift Note Assumed care of patient, awake, alert and oriented X4. No S/S of distress/SOB, complains of left buttock pain, 4/10, informed will medicate with prescribed velazquez medication. IV to left wrist, 22 gauge, patent and saline locked. Left buttock and sacrum with bruising and swelling, dressing to inner left gluteal fold with moderate serosanguineous drainage. Instructed on POC and to call for assist PRN, verbalized understanding. Bed locked, in lowest position, call light within reach, will continue to monitor for changes Q1hr and PRN.
[2019-07-24 09:00] VITALS: BP 87/43
[2019-07-24] MEDS: BUPROPION 150 MG PO SCH (10:00)
[2019-07-24] MEDS: MODAFINIL 200 MG PO SCH (10:00)
[2019-07-24] MEDS: DEXTROAMPHETAMINE PO SCH (10:00)
[2019-07-24] MEDS ORDERED: PHYTONADIONE (VIT K)10 MG/ML 1ML VIAL SUBCUT ONE (10:15)
[2019-07-24] MEDS ORDERED: LACTULOSE 20Gm/30ML SOLN PO ONE (10:15)
[2019-07-24] MEDS: OXYBUTYNIN CHL 5 MG TAB PO SCH (10:49)
[2019-07-24] MEDS: ACYCLOVIR 400 MG TAB PO SCH (10:49)
[2019-07-24] MEDS: TOPIRAMATE 25 MG TAB PO SCH (10:49)
[2019-07-24] MEDS: FAMOTIDINE 20 MG TAB PO SCH (10:49)
[2019-07-24] MEDS: FLUoxetine HCL 20 MG CAP PO SCH (10:49)
--- NOTE | 2019-07-24 11:14 | NUR ---
ROUNDS Dr Palomo at bedside for rounds, new orders received and followed through. Patient updated on plan of care, verbalized understanding.
[2019-07-24 13:00] VITALS: BP 115/59
== END 2019-07-24 18:08 | disposition home or self-care (01) | DRG 605 ==
LOC: ER 14:47 → WEST WING 14:48
PROVIDERS: ADMIT Nurse Practitioner Acute Care; ATTEND Hospitalist
DX: S30.0XXA Contusion of lower back and pelvis, initial encounter (principal); E03.9 Hypothyroidism, unspecified; E66.9 Obesity, unspecified; F41.9 Anxiety disorder, unspecified; G89.4 Chronic pain syndrome; J45.909 Unspecified asthma, uncomplicated; K57.90 Diverticulosis of intestine, part unspecified, without perforation or abscess without bleeding; M17.0 Bilateral primary osteoarthritis of knee; M41.86 Other forms of scoliosis, lumbar region; F32.9 Major depressive disorder, single episode, unspecified; G47.00 Insomnia, unspecified; Z96.643 Presence of artificial hip joint, bilateral; Z96.653 Presence of artificial knee joint, bilateral; M48.061 Spinal stenosis, lumbar region without neurogenic claudication; M81.0 Age-related osteoporosis without current pathological fracture; W11.XXXA Fall on and from ladder, initial encounter; Z79.51 Long term (current) use of inhaled steroids; Z82.49 Family history of ischemic heart disease and other diseases of the circulatory system; Z82.5 Family history of asthma and other chronic lower respiratory diseases; Z90.710 Acquired absence of both cervix and uterus; Z23 Encounter for immunization; Z88.0 Allergy status to penicillin; Z88.2 Allergy status to sulfonamides; Z88.1 Allergy status to other antibiotic agents; Z88.8 Allergy status to other drugs, medicaments and biological substances; Z90.49 Acquired absence of other specified parts of digestive tract; Y93.89 Activity, other specified; Y92.89 Other specified places as the place of occurrence of the external cause; Y99.8 Other external cause status; Z79.899 Other long term (current) drug therapy; Z68.36 Body mass index [BMI] 36.0-36.9, adult
CPT/HCPCS: 36415; 70450; 72131; 72192; 80048; 80053; 82550; 83735; 85014; 85018; 85025; 85610; 85730; 90471; 90715; 93926; 96374; 96375; 96376; G0378; J2405; J3430

== ENCOUNTER 2019-10-12 11:28 | Emergency (ER) | payer OTHER ==
[~2019-10-12] VITALS: Ht 157.5 cm; Wt 79.4 kg
[2019-10-12] MEDS ORDERED: MORPHINE SULFATE 10 MG/ML INJ 1ML SDV IM ONE (12:15)
[2019-10-12] MEDS ORDERED: ONDANSETRON HCL 4 MG/2 ML VIAL IM ONE (12:15)
[2019-10-12 12:32] VITALS: BP 114/61
== END 2019-10-12 13:19 | disposition home or self-care (01) ==
LOC: ER 11:28
DX: M51.16 Intervertebral disc disorders with radiculopathy, lumbar region (principal); J45.909 Unspecified asthma, uncomplicated; Z90.710 Acquired absence of both cervix and uterus; Z88.0 Allergy status to penicillin; Z88.1 Allergy status to other antibiotic agents; Z88.2 Allergy status to sulfonamides; Z79.899 Other long term (current) drug therapy
CPT/HCPCS: 96372; 99284; J2270; J2405

== ENCOUNTER 2019-10-31 10:07 | Inpatient (IN) | payer OTHER ==
[~2019-10-31] VITALS: Ht 167.6 cm; Wt 86.0 kg
[2019-10-31] VITALS (30 sets, daily range): BP systolic 78–149; BP diastolic 40–70
[~2019-10-31 10:07] MED LIST changes: -ALBU2TAB4 PO; -ALBUAER3 IN; -ALEN1TAB32 PO; +BUPR100T14 PO; -CETI10TA80 PO; -FER325T PO; +FLUO-125 PO; -FLUT250M2 INH; -HYDR-4833 PO; -MONT10TA34 PO; +MULT-1018 PO; -MULTTAB61 PO; +OXYB5TAB24 PO; -VORT1TAB3 PO
[2019-10-31] MEDS ORDERED: diphenhdrAMINE HCL 50 MG/1 ML VL ONE (10:09)
[2019-10-31] MEDS ORDERED: methylPREDNISolone SOD SUCC 125 MG/2 ML VL ONE (10:12)
[2019-10-31] MEDS ORDERED: EPINEPHrine HCL 1 MG/1 ML AMP ONE (10:13)
[2019-10-31] MEDS ORDERED: FAMO-12 (10:29)
[2019-10-31] MEDS ORDERED: TOPI100T68 (10:29)
[2019-10-31] MEDS ORDERED: OXYB5TAB24 (10:29)
[2019-10-31] MEDS ORDERED: BUPR-349 (10:29)
[2019-10-31] MEDS ORDERED: TIZA4TAB3 (10:29)
[2019-10-31] MEDS ORDERED: ONDA-188 (10:29)
[2019-10-31] MEDS ORDERED: ZOLP5TAB5 (10:29)
[2019-10-31] MEDS ORDERED: LEVO200T7 (10:29)
[2019-10-31] MEDS ORDERED: FLUO40CA (10:29)
[2019-10-31] MEDS ORDERED: DEXT15CA16 (10:29)
[2019-10-31] MEDS ORDERED: methylPREDNISolone SOD SUCC 125 MG/2 ML VL IV ONE (10:30)
[2019-10-31] MEDS ORDERED: diphenhdrAMINE HCL 50 MG/1 ML VL IV ONE (10:30)
[2019-10-31] MEDS ORDERED: EPINEPHrine HCL 1 MG/1 ML AMP SC ONE ×2 (10:30→11:00)
[2019-10-31 10:41] LABS: Basophils # (auto) 0 10 ^3/uL (0-0.2); Basophils % (auto) 0.3 % (0.0-2.0); Eosinophils # (auto) 0.1 10 ^3/uL (0-0.8); Eosinophils % (auto) 0.9 % (0.0-7.0); Hemoglobin 12.5 g/dL (12.2-16.2); Lymphocytes # (auto) 1.2 10 ^3/uL (0.4-5.4); Lymphocytes % (auto) 11.8 % (10.0-50.0); Mean Corpuscular Hemoglobin 31.1 pg (28.0-32.0); Mean Corpuscular Hgb Conc. 32.7 g/dL (32.0-36.0); Monocytes # (auto) 0.5 10 ^3/uL (0-1.3); Neutrophils # (auto) 8.4 10 ^3/uL (1.6-8.6); Platelet Count (auto) 438 10^3/uL (140-450); Red Blood Cells 4.01 10^6/uL (4.0-5.20); Red Cell Distribution Width 14.6 % (11.8-14.3); White Blood Cell 10.3 10^3/uL (4.4-10.8)
[2019-10-31] MEDS ORDERED: MIDAZOLAM DRIP 50 mg/50mL 50 ML IV ONE (10:55)
[2019-10-31] MEDS ORDERED: ETOMIDATE (2MG/ML) 20ML VIAL IV ONE ×2 (10:55→11:15)
[2019-10-31 10:56] LABS: Albumin 3.1 g/dL (3.4-5.0); Anion Gap 5 (5-15); Blood Urea Nitrogen 17 mg/dL (7-18); Calcium 8.8 mg/dL (8.5-10.1); Carbon Dioxide 24 mmol/L (21-32); Chloride 108 mmol/L (98-107); Glucose 166 mg/dL (74-106); Sodium 137 mmol/L (136-145)
[2019-10-31] MEDS ORDERED: SUCCINYLCHOLINE CHLORIDE 20 MG/ML 10ML VIAL IV ONE ×2 (10:56→11:15)
[2019-10-31 11:00] LABS: Alanine Aminotransferase 17 U/L (13-56); Alkaline Phosphatase 196 U/L (45-117); Aspartate Aminotransferase 23 U/L (15-37); BUN/Creatinine Ratio 22.7; Bilirubin, Total 0.8 mg/dL (0.2-1.0); GFR African American 98 mL/min; GFR Non-African American 81 mL/min; Total Protein 6.4 g/dL (6.4-8.2)
[2019-10-31] MEDS: MIDAZOLAM DRIP 50 mg/50mL 50 ML IV SCH ×2 (11:13→18:31)
[2019-10-31] MEDS ORDERED: fentaNYL Drip 2500mCg/250mlNS 250 ML IV ONE (11:17)
[2019-10-31] MEDS: fentaNYL Drip 2500mCg/250mlNS 250 ML IV SCH ×2 (11:26→23:45)
[2019-10-31] MEDS ORDERED: PROPOFOL 100 ML IV SCH ×2 (11:26)
[2019-10-31] MEDS ORDERED: MIDAZOLAM DRIP 50 mg/50mL 50 ML IV SCH ×3 (11:26)
[2019-10-31] MEDS ORDERED: fentaNYL Drip 2500mCg/250mlNS 250 ML IV SCH ×2 (11:26)
[2019-10-31] MEDS: PROPOFOL 100 ML IV SCH ×2 (11:26→23:55)
[2019-10-31] MEDS ORDERED: LORazepam 2MG/ML-1ML VIAL ONE (11:48)
[2019-10-31] MEDS ORDERED: IOHEXOL 300 MG/ML 100ML BOTTLE IJ ONE (11:52)
--- NOTE | 2019-10-31 11:56 | NUR ---
ETT RETRACTED BY 2CM PER MD ORDERS. RN MADE AWARE
[2019-10-31] MEDS ORDERED: LORazepam 2MG/ML-1ML VIAL IV ONE (12:00)
[2019-10-31] MEDS ORDERED: PANTOPRAZOLE 40 MG/10 ML VIAL INJ IV ONE (13:00)
--- NOTE | 2019-10-31 13:05 | NUR ---
PT WAS TRANSPORTED TO CT AND MANUALLY VENTILATED WITH AMBUBAG. PT RONY. WELL. CARDIAC MONITORING AT BEDSIDE SPO2 100%. WILL CONTINUE TO MONITOR PT.
[2019-10-31] MEDS ORDERED: NOREPINEPHRINE 8 MG/250ML KIT 250 ML IV ONE (13:51)
[2019-10-31 13:56] LABS: Urine Bacteria NONE SEEN /hpf (None Seen); Urine Blood 1+ /uL (Negative); Urine Mucus FEW (None Seen); Urine Specific Gravity 1.015 (1.001-1.035); Urine WBC 1790 /hpf (0 - 5); Urine WBC Clumps PRESENT /hpf (None Seen)
[2019-10-31] MEDS: NOREPINEPHRINE 8 MG/250ML KIT 250 ML IV SCH (14:06)
[2019-10-31] MEDS ORDERED: MORPHINE SULF INJ 2 MG/ML SYRINGE 1ML IV PRN (14:45)
[2019-10-31] MEDS ORDERED: hydrALAZINE HCL 20 MG/ML VL IV PRN (14:45)
[2019-10-31] MEDS ORDERED: VANCOMYCIN PER PHARMACY 0 MG IV SCH (14:45)
[2019-10-31] MEDS ORDERED: PROMETHAZINE HCL 25 MG/ML 1ML IV PRN (14:45)
[2019-10-31] MEDS ORDERED: SODIUM CHLORIDE 0.9% 1,000 ML IV ONE (14:45)
[2019-10-31] MEDS ORDERED: NITROGLYCERIN 0.4 MG SL TAB SL PRN (14:45)
--- NOTE | 2019-10-31 15:20 | NUR ---
Patient admitted to icu intubated with 7.5 ett 22 athe teeth. patiensedated with propofol at 30 mcg/kg/min, versed 15 mg/hr, fentanyl at 200 mcg/hr. Patient on the vent setting at ac 14 tv500 pip 16.7 fio2 40 %. Patient doesnt respond to pain. lowered versed to 10 mg/hr
[2019-10-31] MEDS: VANCOMYCIN 1GM/250ML 250 ML IV SCH (17:41)
[2019-10-31] MEDS: buPROPion HCL 100 MG TAB PO SCH (22:00)
[2019-10-31] MEDS: LEVOTHYROXINE SODIUM 100 MCG/5 ML INJ IV SCH (22:00)
[2019-10-31] MEDS: methylPREDNISolone SOD SUCC 40 MG/ML VL IV SCH (22:00)
[2019-10-31] MEDS: diphenhdrAMINE HCL 50 MG/1 ML VL IV SCH (22:00)
[2019-11-01] VITALS (98 sets, daily range): BP systolic 91–140; BP diastolic 43–88
[2019-11-01] MEDS: MIDAZOLAM DRIP 50 mg/50mL 50 ML IV SCH ×5 (01:01→23:00)
[2019-11-01 04:39] LABS: Basophils # (auto) 0 10 ^3/uL (0-0.2); Basophils % (auto) 0.1 % (0.0-2.0); Eosinophils # (auto) 0 10 ^3/uL (0-0.8); Hematocrit 34.9 % (36.0-46.0); Hemoglobin 11.5 g/dL (12.2-16.2); Lymphocytes # (auto) 0.5 10 ^3/uL (0.4-5.4); Lymphocytes % (auto) 4.5 % (10.0-50.0); Mean Corpuscular Hemoglobin 31.7 pg (28.0-32.0); Mean Corpuscular Hgb Conc. 32.8 g/dL (32.0-36.0); Mean Corpuscular Volume 96.7 fL (80.0-100.0); Monocytes # (auto) 0.3 10 ^3/uL (0-1.3); Monocytes % (auto) 2.2 % (0.0-12.0); Neutrophils # (auto) 11.2 10 ^3/uL (1.6-8.6); Neutrophils % (auto) 93.2 % (37.0-80.0); Platelet Count (auto) 414 10^3/uL (140-450); Red Blood Cells 3.61 10^6/uL (4.0-5.20); Red Cell Distribution Width 14.9 % (11.8-14.3)
[2019-11-01 04:46] LABS: Potassium 4.5 mmol/L (3.5-5.1)
[2019-11-01 04:50] LABS: BUN/Creatinine Ratio 20.8; Calcium 8.5 mg/dL (8.5-10.1)
[2019-11-01] MEDS: VANCOMYCIN 1GM/250ML 250 ML IV SCH ×2 (05:19→17:05)
[2019-11-01] MEDS: buPROPion HCL 100 MG TAB PO SCH ×3 (06:00→21:46)
[2019-11-01] MEDS: diphenhdrAMINE HCL 50 MG/1 ML VL IV SCH ×3 (06:00→21:46)
[2019-11-01] MEDS: LEVOTHYROXINE SODIUM 100 MCG/5 ML INJ IV SCH (07:00)
[2019-11-01] MEDS ORDERED: FLUoxetine HCL 20 MG CAP PO SCH (10:00)
[2019-11-01] MEDS: FLUoxetine HCL 20 MG CAP PO SCH (10:00)
[2019-11-01] MEDS: levoFLOXacin 500MG 100 ML IV SCH (10:22)
[2019-11-01] MEDS: PANTOPRAZOLE 40 MG/10 ML VIAL INJ IV SCH (10:22)
[2019-11-01] MEDS: ENOXAPARIN SOD 40 MG/0.4 ML SYRINGE SC SCH (10:23)
[2019-11-01] MEDS: methylPREDNISolone SOD SUCC 40 MG/ML VL IV SCH ×2 (10:23→21:46)
[2019-11-01] MEDS: TOPIRAMATE 100 MG TAB PO SCH (10:23)
[2019-11-01] MEDS: OXYBUTYNIN CHL 5 MG TAB PO SCH (10:23)
--- NOTE | 2019-11-01 11:30 | NUR ---
WOUND CARE NOTE: IN TO SEE PATIENT AT THIS TIME PER WOUND CARE CONSULT REQUEST. PATIENT INTUBATED, FABIANA SCORE IS 12. PATIENT ADDED TO SKIN INTEGRITY MONITORING. PATIENT ADMITTED RECENTLY WITH THE DIAGNOSIS OF ANGIOEDEMA. PATIENT HAS INCISION TO THE THE LEFT HIP THAT IS COVERED WITH PRIMAPORE DRESSING. PATIENT IS S/P HIP SURGERY FOR FRACTURE APPROXIMATELY ONE WEEK AGO. SHE IS NOTED TO HAVE FADING TRAUMA BRUISES TO THE LEFT HIP, LOWER BACK/BUTTOCK. THESE BRUISES WERE RENDERED UPON PATIENT'S FALLING AT TIME OF HIP FRACTURE. NO OPEN OR DRAINING AREAS NOTED. SKIN TO SACRUM/BUTTOCK AND BILATERAL HEELS ARE PINK, BLANCHABLE. NO OTHER SKIN INTEGRITY ISSUES NOTED. RECOMMEND: SKIN/WOUND CARE PLAN (IMPLEMENTED), FREQUENT TURN SCHEDULE Q 2 HOURS, PRN CONDITION PERMITS, WITH PRESSURE REDISTRIBUTION USING PILLOWS/WEDGES, BID/PRN APPLICATION MOISTURE BARRIER CREAM, OPTIFOAM GENTLE SACRAL DRESSING PREVENTATIVE, DIETARY CONSULT FOR LOW FABIANA 12, CONTINUED MONITORING BY WOUND CARE TEAM. Addendum: 11/01/19 at 1549 by Ely Davey RN Amended: Links added.
[2019-11-01] MEDS: fentaNYL Drip 2500mCg/250mlNS 250 ML IV SCH (12:00)
--- NOTE | 2019-11-01 13:46 | NUR ---
PATIENT REMAINED SEDATED.DR MCCRAY CAME AND WANTED PATIENT TO CHECK FORANY AIR LEAK PATIENT JUST HAD GURGLE DR. MCCRAY WAS NOTIFIED.
[2019-11-01] MEDS: SODIUM CHLORIDE 0.9% 1,000 ML IV SCH (16:18)
--- NOTE | 2019-11-01 16:37 | NUR ---
PATIENT AROUSABLE VERY COOPERATIVE ON COMMAND. PATIENT OPEN EYES WHEN NAME CALLED. LEVOPHED DECREASED TO 2 MCG/MIN
[2019-11-01] MEDS: NOREPINEPHRINE 8 MG/250ML KIT 250 ML IV SCH (19:30)
--- NOTE | 2019-11-01 19:40 | NUR ---
OPEN ASSUMED CARE OF FEMALE PT ORALLY INTUBATED. PT SEDATED ON DIPRIVAN GTT 10 MCG/KG/MIN, FENTANYL GTT AT 200 MCG/HR, AND VERSED GTT 10 MG/HR. PT OPENS EYES TO LIGHT TACTILE STIMULI AND NAME BEING CALLED. ABLE TO FOLLOW SIMPLE COMMANDS. SR TO SINUS SANJU ON MANAGER RENTAL. LEVOPHED GTT INFUSING AT 2 MCG/MIN. GTT'S INFUSING INTO R. IJ TLC ALL PORTS PATENT. DRESSING CDI. NGT TO R. NARE IN PLACE CLAMPED. PLACEMENT VERIFIED. PT WITH INCISION TO L. HIP WITH BRUISING TO INNER AND OUTER THIGH. DRESSING CDI. ACOSTA TO GRAVITY DRAINING CLEAR YELLOW URINE. TERRY SCD'S IN PLACE. HOB ELEVATED 30 DEGREES. SIDE RAILS UP X 2. BED IN LOWEST LOCKED POSITION. NO INDICATION OF PAIN OBSERVED. PT IN FULL VIEW OF RN STATION. WILL CONTINUE TO MONITOR.
[2019-11-02] VITALS (61 sets, daily range): BP systolic 89–154; BP diastolic 45–97
[2019-11-02] MEDS: fentaNYL Drip 2500mCg/250mlNS 250 ML IV SCH
--- NOTE | 2019-11-02 03:00 | NUR ---
Patient bathe/linen change Patient given complete bath. Skin integrity assessed for any changes. Linens changed. Patient repositioned for comfort.
[2019-11-02 03:48] LABS: Basophils # (auto) 0 10 ^3/uL (0-0.2); Basophils % (auto) 0.1 % (0.0-2.0); Eosinophils # (auto) 0 10 ^3/uL (0-0.8); Hematocrit 33.6 % (36.0-46.0); Hemoglobin 10.8 g/dL (12.2-16.2); Lymphocytes # (auto) 0.7 10 ^3/uL (0.4-5.4); Lymphocytes % (auto) 6.7 % (10.0-50.0); Mean Corpuscular Hgb Conc. 32.2 g/dL (32.0-36.0); Mean Corpuscular Volume 96.2 fL (80.0-100.0); Monocytes # (auto) 0.4 10 ^3/uL (0-1.3); Neutrophils # (auto) 9.3 10 ^3/uL (1.6-8.6); Neutrophils % (auto) 89.2 % (37.0-80.0); Platelet Count (auto) 369 10^3/uL (140-450); Red Blood Cells 3.49 10^6/uL (4.0-5.20); White Blood Cell 10.4 10^3/uL (4.4-10.8)
[2019-11-02 04:19] LABS: BUN/Creatinine Ratio 21.4; Calcium 8.9 mg/dL (8.5-10.1); Potassium 4.3 mmol/L (3.5-5.1)
[2019-11-02] MEDS: VANCOMYCIN 1GM/250ML 250 ML IV SCH ×2 (04:40→17:00)
[2019-11-02] MEDS: PROPOFOL 100 ML IV SCH (04:41)
[2019-11-02] MEDS: MIDAZOLAM DRIP 50 mg/50mL 50 ML IV SCH (05:30)
[2019-11-02] MEDS: buPROPion HCL 100 MG TAB PO SCH ×3 (06:14→22:00)
[2019-11-02] MEDS: diphenhdrAMINE HCL 50 MG/1 ML VL IV SCH ×3 (06:14→22:00)
[2019-11-02] MEDS: LEVOTHYROXINE SODIUM 100 MCG/5 ML INJ IV SCH (06:14)
--- NOTE | 2019-11-02 07:49 | NUR ---
ASSUMED CARE AFTER REPORT OBTAINED. PATIENT OPEN EYES WHEN CALLED DENIES ANY PAIN OR DISCOMFORT BY NODDING HER HEAD. PATIENT ON MULTIPLE DRIPS SUCH LEVOPHED 2MCG/MIN, DIPRIVAN AT 10 MCG/KG/MIN, VERSED ID OFF FENTANYL AT 200 MCG/HR DECREASED TO 150 MCG/HR. PATIENT REMAINED INTUBATED ETT 7.5 AT 22 AT THE LIPS. PATIENT TONGUE REMAINED WITH SWELLING BUT DECREASED. VENT SETTINGS AC WITH RATE 14, 500 TV, PEEP 5 AND FIO2 30%. NGT REMAINED INTACT. LUNGS CLEAR BOWEL SOUNDS + CARDIAC RYTHM SINUS WITH SOME MURMUR.
--- NOTE | 2019-11-02 09:00 | NUR ---
Respiratory note: LEAK TEST DONE : 192 RN OLLIE INFORMED. WAITING FOR PT TO WAKE UP MORE TO INITIATE CPAP TRIAL.
[2019-11-02] MEDS: levoFLOXacin 500MG 100 ML IV SCH (10:44)
[2019-11-02] MEDS: PANTOPRAZOLE 40 MG/10 ML VIAL INJ IV SCH (10:45)
[2019-11-02] MEDS: methylPREDNISolone SOD SUCC 40 MG/ML VL IV SCH ×2 (10:45→22:00)
[2019-11-02] MEDS: TOPIRAMATE 100 MG TAB PO SCH (10:45)
[2019-11-02] MEDS: FLUoxetine HCL 20 MG CAP PO SCH (10:45)
[2019-11-02] MEDS: ENOXAPARIN SOD 40 MG/0.4 ML SYRINGE SC SCH (10:46)
[2019-11-02] MEDS: OXYBUTYNIN CHL 5 MG TAB PO SCH (10:59)
--- NOTE | 2019-11-02 11:05 | NUR ---
Respiratory note: CPAP TRIAL INITIATED. PT IS AWAKE AND ALERT, FOLLOWING COMMANDS. HR 56, RR 12, SPO2 99%, BP 142/58. RN OLLIE INFORMED. ABG TO FOLLOW.
--- NOTE | 2019-11-02 13:38 | NUR ---
Respiratory note: EXTUBATED AND PLACED ON 30% COOL AEROSOL. NO STRIDOR HEARD. HR 72, RR 14, SPO2 97%, BP 111/54. RN OLLIE AT BEDSIDE.
[2019-11-02] MEDS: NOREPINEPHRINE 8 MG/250ML KIT 250 ML IV SCH (14:15)
[2019-11-02] MEDS: SODIUM CHLORIDE 0.9% 1,000 ML IV SCH (14:29)
--- NOTE | 2019-11-02 15:11 | NUR ---
NUTRITION ASSESSMENT NOTES Please refer to link notes of nutrition screen form filed under the intervention section of the plan of care for further details. Est. Energy Needs: 4982-7698 kcal (17-20 kcal/kg BW). Est. Protein Needs: 66-79 gms/day (1.0-1.2 gms/kg Adj.BW). Will continue to monitor pertinent labs and reassess nutrient need prn Addendum: 11/02/19 at [address] Amended: Links added.
--- NOTE | 2019-11-02 16:41 | NUR ---
PATIENT EXTUBATED AT 1338 AND PUT ON VENTURI MASK AT 30% FIO2. PATIENT TOLERATING WELL. PATIENT SATURATING 97%.
--- NOTE | 2019-11-02 17:00 | NUR ---
PHARMACY CALLED RE: THE THE PATIENT BEING FOR + FOR ESBL IN THE URINE AND RECOMMENDED TO D/C LEVAQUIN AND VANCOMYCIN INSTEAD TO GIVE INVANZ. TELEPHONE CALL TO DR Jones FUNK BUT RECEIVED NO ANSWER. VANCOMYCIN HELD BECAUSE PHARMACY SAID NOT TO GIVE.
--- NOTE | 2019-11-02 19:25 | NUR ---
OPENING SHIFT RECEIVED REPORT FROM DAY SHIFT RN. ASSUMED CARE OF PATIENT. PATIENT IN BED RESTING WITH NO SIGNS OR SYMPTOMS OF SOB, PAIN OR DISTRESS. CURRENTLY ON 2L 02 NASAL CANNULA, 02 SAT - 97%. RIGHT INTERNAL JUGULAR TLC, LEFT ANTECUBITAL AND LEFT WRIST IV - CLEAN/DRY/INTACT. ACOSTA HUNG TO GRAVITY. REPOSITIONED FOR COMFORT. UPDATED PATIENT ON PLAN OF CARE. BED IN LOWEST POSITION, SIDE RAILS UP X2, CALL LIGHT WITHIN REACH. WILL CONTINUE TO MONITOR.
[2019-11-02] MEDS ORDERED: ERTAPENEM SOD INJ 1 GM in SODIUM CHL 0.9% 50 ML IV SCH (20:00)
--- NOTE | 2019-11-02 23:20 | NUR ---
PM CARE PATIENT REFUSED PM CARE AT THIS TIME. CLEAN LINEN LEFT AT BEDSIDE.
[2019-11-03] VITALS (18 sets, daily range): BP systolic 90–129; BP diastolic 45–65
[2019-11-03 04:20] LABS: Basophils # (auto) 0 10 ^3/uL (0-0.2); Basophils % (auto) 0.1 % (0.0-2.0); Eosinophils # (auto) 0 10 ^3/uL (0-0.8); Hematocrit 31.2 % (36.0-46.0); Hemoglobin 10.3 g/dL (12.2-16.2); Lymphocytes # (auto) 0.5 10 ^3/uL (0.4-5.4); Lymphocytes % (auto) 6.1 % (10.0-50.0); Mean Corpuscular Hemoglobin 31.4 pg (28.0-32.0); Mean Corpuscular Hgb Conc. 32.9 g/dL (32.0-36.0); Mean Corpuscular Volume 95.6 fL (80.0-100.0); Monocytes # (auto) 0.4 10 ^3/uL (0-1.3); Monocytes % (auto) 4.2 % (0.0-12.0); Neutrophils # (auto) 7.6 10 ^3/uL (1.6-8.6); Neutrophils % (auto) 89.6 % (37.0-80.0); Platelet Count (auto) 284 10^3/uL (140-450); Red Blood Cells 3.26 10^6/uL (4.0-5.20); Red Cell Distribution Width 15.5 % (11.8-14.3); White Blood Cell 8.4 10^3/uL (4.4-10.8)
[2019-11-03 04:32] LABS: Potassium 4.1 mmol/L (3.5-5.1)
[2019-11-03 04:38] LABS: BUN/Creatinine Ratio 28.6; Calcium 8.6 mg/dL (8.5-10.1)
[2019-11-03] MEDS: diphenhdrAMINE HCL 50 MG/1 ML VL IV SCH (05:44)
[2019-11-03] MEDS: buPROPion HCL 100 MG TAB PO SCH ×3 (05:44→21:55)
[2019-11-03] MEDS: SODIUM CHLORIDE 0.9% 1,000 ML IV SCH (06:45)
[2019-11-03] MEDS: LEVOTHYROXINE SODIUM 100 MCG/5 ML INJ IV SCH (07:06)
--- NOTE | 2019-11-03 07:38 | NUR ---
END OF SHIFT REPORT GIVEN TO DAY SHIFT RN. CARE ENDORSED.
[2019-11-03] MEDS: TOPIRAMATE 100 MG TAB PO SCH (10:29)
[2019-11-03] MEDS: FLUoxetine HCL 20 MG CAP PO SCH (10:29)
[2019-11-03] MEDS: PANTOPRAZOLE 40 MG/10 ML VIAL INJ IV SCH (10:29)
[2019-11-03] MEDS: methylPREDNISolone SOD SUCC 40 MG/ML VL IV SCH (10:29)
[2019-11-03] MEDS: ENOXAPARIN SOD 40 MG/0.4 ML SYRINGE SC SCH (10:29)
[2019-11-03] MEDS: OXYBUTYNIN CHL 5 MG TAB PO SCH (10:30)
[2019-11-03] MEDS: MIDAZOLAM DRIP 50 mg/50mL 50 ML IV SCH (11:09)
[2019-11-03] MEDS: PROPOFOL 100 ML IV SCH (11:26)
[2019-11-03] MEDS: fentaNYL Drip 2500mCg/250mlNS 250 ML IV SCH (11:26)
--- NOTE | 2019-11-03 11:30 | NUR ---
PHYSICAL THERAPY Physical therapist Barak at bedside to assist patient up to the chair. Patient tolerated well.
--- NOTE | 2019-11-03 11:50 | NUR ---
BEDDING Complete linen change done.
--- NOTE | 2019-11-03 12:05 | NUR ---
PHYSICAL THERAPY Physical therapist Barak paged per patient request to get back into bed. Barak at bedside and assisted patient back into bed. Patient tolerated well with no incident.
[2019-11-03] MEDS ORDERED: diphenhdrAMINE HCL 25 MG CAP PO PRN (13:00)
[2019-11-03] MEDS ORDERED: ACETAMINOPHEN 325 MG TAB PO PRN (13:30)
[2019-11-03] MEDS ORDERED: HYDROcodone-ACET 5/325MG TAB PO PRN (13:30)
[2019-11-03 13:54] LABS: INR 1.09 (0.9-1.15); Partial Thromboplastin Time 29.6 sec (23.64-32.05)
--- NOTE | 2019-11-03 14:20 | NUR ---
CONSENT Consent obtained for PICC line placement per Dr. Mora.
--- NOTE | 2019-11-03 14:30 | NUR ---
PICC LINE PICC line nurse Nando at bedside to place PICC line.
[2019-11-03] MEDS ORDERED: LIDOCAINE 1% (LOCAL ANESTH.) PF 5ml SDV ID ONE (15:30)
[2019-11-03] MEDS: ERTAPENEM SOD INJ 1 GM in SODIUM CHL 0.9% 50 ML IV SCH (15:32)
--- NOTE | 2019-11-03 15:34 | NUR ---
PICC line placement Patient/Patient significant other educated on need for PICC line placement. All risks and benefits explained and all questions and concerns addressed prior to procedure. Noted past medical history and allergies with no contraindications. INR and Plt counts within acceptable range. 4fr PICC line inserted via left basilic vein using [employer]'s [employer] US and Tip Location System. Sterile technique with maximum barrier precautions utilized. Blood return obtained from single lumen and flushed easily with NS using proper technique. PICC secured with Stat-lock; biodisc and occlusive dressing applied. Stat portable chest x-ray obtained for PICC tip placement. *Baseline Arm Circumference 32cm. PICC lot # [id number]. Internal length 44cm External length 0cm
--- NOTE | 2019-11-03 17:00 | NUR ---
BED ASSIGNMENT Bed assignment assigned to room 235 per charge nurse Joann.
--- NOTE | 2019-11-03 17:05 | NUR ---
REPORT Report given to Yvette RN who will continue plan of care once patient arrives to room 235.
--- NOTE | 2019-11-03 17:10 | NUR ---
OUTPUT Output from Reese 1750 light emmanuelle urine.
--- NOTE | 2019-11-03 17:20 | NUR ---
TRANSFERRED PATIENT Patient transferred to room 235 accompanied by Nic FERNANDEZ and portable security monitor on patient. All belongings with patient.
--- NOTE | 2019-11-03 17:37 | NUR ---
PATIENT ARRIVED FROM ICU VIA HOSPITAL BED, ALERT ORIENTED X4, NO DISTRESS NOTED, ABLE TO VERBALIS HER NEEDS AND HELP IN REPOSITIONING, ECCHYMOSIS NOTED AT THE LEFT THIGH HIP WITH 3 DRY DRESSING, INTACT AND CLEAN, ACOSTA CATHETER TO GRAVITY, ACOSTA CATHETER TO GRAVITY YELLOW URINE, ROOM ORIENTAION GIVEN TO PT, CALL LIGHT WITHIN REACH
--- NOTE | 2019-11-03 17:55 | NUR ---
ASSISTED PT TO GET OUT OF BED TO BED SIDE COMMODE TO HAVE BM, TOLERATED WELL
--- NOTE | 2019-11-03 17:58 | NUR ---
DR DUANE ORTEGA CALLED, MADE AWARE OF PT CHIEF COMPLAIN AND LATEST UPDATE SAID TO CALL DR LOWE TO VERIFY IS THE CONSULT FIR HER OR FOR DR ORTEGA THE ORTHOPEDIC SURGEON
--- NOTE | 2019-11-03 18:00 | NUR ---
PAGE DR Jones LOWE TO VERIFY THE NEUROLOGY CONSULT PER DR SID ORTEGA REQUEST
--- NOTE | 2019-11-03 18:05 | NUR ---
BM PT HAS LARGE HARD BM, FORMED, WITH ONE DROP OF BLOOD NOTED, PT WIPE OFF HER SELF STATED I AM BLEEDING> ASSESS PT RECTUM, NO ACTIVE BLEEDING NOTED, CONTINUE MONITORING PT, ASSISTED BACK TO BED
--- NOTE | 2019-11-03 18:22 | NUR ---
DR LOWE CALLED BACK SAID TO LET DR SID ORTEGA KNOW THAT THE CONSULT WAS PER DR GARCIA REQUEST DUE TO GLENIS'S ALLERGY
--- NOTE | 2019-11-03 18:24 | NUR ---
PAGE DR SID ORTEGA
[2019-11-03] MEDS ORDERED: DOCUSATE SOD 100 MG CAP PO ONE (18:30)
--- NOTE | 2019-11-03 18:30 | NUR ---
ALL SALINE LOCK IV REMOVED, INTACT, TOLERATED WELL, PER PATIENT'S REQUEST
--- NOTE | 2019-11-03 19:00 | NUR ---
RT IJ CENTRAL LINE REMOVED TOLERATED WELL
--- NOTE | 2019-11-03 19:15 | NUR ---
DR Gilles ORTEGA CALLED BACK EXPLAIN TO HER THE CONSULT, VERBALIS UNDERSTANDING
--- NOTE | 2019-11-03 19:29 | NUR ---
NO RECTAL BLEEDING NOTED, STABLE, NO DISTRESS NOTED, TOLERATED DIET WELL
--- NOTE | 2019-11-03 19:30 | NUR ---
Opening Shift Note Assumed care of patient awake and alert x4. Patient is complaining of pain to left hip (pain scale 8/10), will medicate patient as ordered by MD. Instructed on plan of care and to call for assistance as needed, patient verbalized understanding. Bed is locked in lowest position, side rails x 2 are up, call light is within reach, and bed alarm is on.
[2019-11-03] MEDS: HYDROcodone-ACET 5/325MG TAB PO PRN (20:18)
--- NOTE | 2019-11-03 20:18 | NUR ---
Pain Patient is complaining of throbbing pain to left knee (pain scale 8/10). Patient medicated for pain at this time (see eMAR).
--- NOTE | 2019-11-03 21:18 | NUR ---
Pain Reassessment Patient states her pain is 3/10 at this time. Patient is laying in bed with even and unlabored respirations. No signs/symptoms of distress noted at this time. Bed is locked in lowest position, side rails x 2 are up, call light is within reach, and bed alarm is on.
[2019-11-03] MEDS: SODIUM CHLOR 0.9% PF (SALINE LOCK) 10ML VIAL/SYR IV SCH (21:56)
[2019-11-03] MEDS ORDERED: DOCUSATE SOD 100 MG CAP PO PRN (22:00)
[2019-11-04] MEDS: HYDROcodone-ACET 5/325MG TAB PO PRN ×4 (02:45→18:27)
--- NOTE | 2019-11-04 02:45 | NUR ---
Pain Patient is complaining of throbbing pain to left knee (pain scale 8/10). Patient medicated for pain at this time (see eMAR).
[2019-11-04 05:00] VITALS: BP 120/63
[2019-11-04] MEDS: buPROPion HCL 100 MG TAB PO SCH ×2 (06:09→15:15)
[2019-11-04] MEDS: LEVOTHYROXINE SODIUM 100 MCG/5 ML INJ IV SCH (06:10)
[2019-11-04 06:52] LABS: Basophils # (auto) 0.1 10 ^3/uL (0-0.2); Basophils % (auto) 1.2 % (0.0-2.0); Eosinophils # (auto) 0.1 10 ^3/uL (0-0.8); Eosinophils % (auto) 1.6 % (0.0-7.0); Hematocrit 33.3 % (36.0-46.0); Hemoglobin 10.9 g/dL (12.2-16.2); Lymphocytes # (auto) 1.8 10 ^3/uL (0.4-5.4); Lymphocytes % (auto) 25.8 % (10.0-50.0); Mean Corpuscular Hemoglobin 31.5 pg (28.0-32.0); Mean Corpuscular Hgb Conc. 32.8 g/dL (32.0-36.0); Mean Corpuscular Volume 96.1 fL (80.0-100.0); Monocytes # (auto) 0.7 10 ^3/uL (0-1.3); Monocytes % (auto) 10.9 % (0.0-12.0); Neutrophils # (auto) 4.1 10 ^3/uL (1.6-8.6); Neutrophils % (auto) 60.5 % (37.0-80.0); Nucleated Red Blood Cells % 0.1 %; Platelet Count (auto) 233 10^3/uL (140-450); Red Blood Cells 3.46 10^6/uL (4.0-5.20); Red Cell Distribution Width 15.2 % (11.8-14.3); White Blood Cell 6.8 10^3/uL (4.4-10.8)
[2019-11-04 07:15] LABS: BUN/Creatinine Ratio 26.2; Calcium 8.6 mg/dL (8.5-10.1); Potassium 3.4 mmol/L (3.5-5.1)
--- NOTE | 2019-11-04 07:33 | NUR ---
Opening Shift Note Assumed care of patient, awake and alert. No S/S of distress/SOB, reports pain to lt knee and hip. Instructed on POC and to call for assist PRN, will continue to monitor for changes Q1hr and PRN.
[2019-11-04] MEDS: PANTOPRAZOLE 40 MG/10 ML VIAL INJ IV SCH (08:40)
[2019-11-04] MEDS: SODIUM CHLOR 0.9% PF (SALINE LOCK) 10ML VIAL/SYR IV SCH (08:41)
[2019-11-04 09:00] VITALS: BP 102/49
[2019-11-04] MEDS ORDERED: predniSONE 20 MG TAB PO SCH (10:00)
[2019-11-04] MEDS: FLUoxetine HCL 20 MG CAP PO SCH (11:33)
[2019-11-04] MEDS: TOPIRAMATE 100 MG TAB PO SCH (11:33)
[2019-11-04] MEDS: ENOXAPARIN SOD 40 MG/0.4 ML SYRINGE SC SCH (11:34)
[2019-11-04] MEDS: OXYBUTYNIN CHL 5 MG TAB PO SCH (11:34)
[2019-11-04 13:00] VITALS: BP 115/67
--- NOTE | 2019-11-04 14:42 | NUR ---
D/C Planning Per consult for SNF placement for physical therapy and IV abx with INvanz 1gm daily x 12 days. Patient came from [facility]. Faxed order to [facility]. Per Fabiola with [facility] Ph:) they will take patient back. Patient will be going to room [address] Tenorio. Placed followed up called to GEORGINA Deal with [facility] advising her patient has been accepted. Per GEORGINA Deal authorization for SNF is [id number] and for [facility] transportation is [id number]. Placed called to [facility] Ph:) or Ph:) spoke to Ray. Advised Ray to set up transportation ON WILL CALL. DREW Rodriguez was informed of d/c plan.
--- NOTE | 2019-11-04 15:27 | NUR ---
assessment Patient is a 69 year old female who is alert and oriented. Prior to admission patient was at [facility] skilled. Per patient she will return to [facility] on discharge. Patients PCP is Dr Ham. I informed patient she has a right to speak to a social service manager regarding all care. I informed patient she has a right to participate in any and all discharge planning. Patient does not have a POA and advanced directive. I have offered patient information on POA and advanced directives. I informed the patient the advantages and benefits of having an Advanced Directive. Patient verbalized understanding and agreed to discharge plan. Addendum: 11/04/19 at 1529 by Lashell MYERS Amended: Links added.
[2019-11-04 16:14] VITALS: BP 124/65
--- NOTE | 2019-11-04 16:57 | NUR ---
ROCIO TO LT HIP REMOVED, INCISION CDI, NEW DRESSING APPLIED.
--- NOTE | 2019-11-04 17:32 | NUR ---
[facility] CALLED FOR PICKUP, [facility] WILL BE HERE AT 1900.
[2019-11-04] MEDS: ERTAPENEM SOD INJ 1 GM in SODIUM CHL 0.9% 50 ML IV SCH (17:35)
--- NOTE | 2019-11-04 18:16 | NUR ---
REPORT CALLED TO MICHAELLE AT [facility].
[2019-11-04 19:50] VITALS: BP 119/52
--- NOTE | 2019-11-04 19:50 | NUR ---
Patient discharged Patient discharged to [facility]. Patient's vital signs upon discharge are blood pressure of 119/52, HR 72, respiratory rate of 18, pulse oximeter reading of 93% on room air, and temperature of 98.2 F. Patient has no S/S of distress/SOB or pain. Patient discharged with left upper arm PICC line, dressing clean, dry, and intact and site has no signs of infection. Patient discharged with Reese which is secure and patent/draining urine. Patient's dressings to left thigh are clean, dry, and intact. Tele-box removed from patient.
== END 2019-11-04 19:48 | disposition home health service (06) | DRG 871 ==
LOC: EDBD 10:07 → ER 10:07 → ICU WEST 10:08 → TELE-EAST 11-03 17:43
PROVIDERS: ADMIT Internal Medicine; ATTEND Internal Medicine
PROC: 5A1945Z Respiratory Ventilation, 24-96 Consecutive Hours (ICD-10-PCS; principal; 2019-10-31)
PROC: 0BH17EZ Insertion of Endotracheal Airway into Trachea, Via Natural or Artificial Opening (ICD-10-PCS; 2019-10-31)
PROC: 02HV33Z Insertion of Infusion Device into Superior Vena Cava, Percutaneous Approach (ICD-10-PCS; 2019-11-03)
DX: A41.9 Sepsis, unspecified organism (principal); R65.21 Severe sepsis with septic shock; J96.01 Acute respiratory failure with hypoxia; N39.0 Urinary tract infection, site not specified; T78.3XXA Angioneurotic edema, initial encounter; T78.40XA Allergy, unspecified, initial encounter; R01.1 Cardiac murmur, unspecified; I10 Essential (primary) hypertension; J38.4 Edema of larynx; G43.909 Migraine, unspecified, not intractable, without status migrainosus; E03.9 Hypothyroidism, unspecified; B96.20 Unspecified Escherichia coli [E. coli] as the cause of diseases classified elsewhere; F41.9 Anxiety disorder, unspecified; J45.909 Unspecified asthma, uncomplicated; F32.9 Major depressive disorder, single episode, unspecified; K21.9 Gastro-esophageal reflux disease without esophagitis; R32 Unspecified urinary incontinence; K57.30 Diverticulosis of large intestine without perforation or abscess without bleeding; Z82.49 Family history of ischemic heart disease and other diseases of the circulatory system; Z82.5 Family history of asthma and other chronic lower respiratory diseases; X58.XXXA Exposure to other specified factors, initial encounter; Z88.1 Allergy status to other antibiotic agents; Z90.49 Acquired absence of other specified parts of digestive tract; Z88.2 Allergy status to sulfonamides; Z90.710 Acquired absence of both cervix and uterus; Z88.0 Allergy status to penicillin
CPT/HCPCS: 31500; 36415; 36556; 36569; 36600; 70450; 70491; 71045; 73502; 74176; 80048; 80053; 80202; 81001; 82805; 83605; 84484; 85025; 85610; 85730; 87040; 87070; 87081; 87086; 87088; 87186; 87205; 94002; 94003; 94640; 96374; 96375; 97110; 97116; 97530; 99291; C9113; G0378; J0171; J0330; J1335; J1956; J2250; J2704; J3490

== ENCOUNTER → 2021-10-16 | Day surgery (SDC) | payer MEDICARE, OTHER ==
[~2021-10-16] VITALS: Ht 154.9 cm; Wt 77.1 kg
[~2021-10-16] MED LIST changes: +BUPR-160 PO; +BUPR-349; -BUPR100T14 PO; +DEXT15CA16; +FAMO-12; +FAMOTIDINE (10MG/ML) 2ML VL IV ONE; +FLUO40CA; +GLUCAGON HYDROCHLORIDE (RDNA) 1 MG VIAL IM ONE; +GLUCAGON HYDROCHLORIDE (RDNA) 1 MG VIAL IV ONE; +LEVO200T7; +LIDOCAINE 2% (LOCAL ANESTH.) PF 5ml SDV ONE; +LIDOCAINE HCL 2 % INJ 2ML MPF NEB ONE; +LIDOCAINE VISCOUS 2% 15ML UD MT ONE; +LIDOCAINE VISCOUS 2% 15ML UD ONE; +LIDOCAINE VISCOUS 2% 15ML UD PO ONE; +LORazepam 2MG/ML-1ML VIAL IV ONE; +MIDAZOLAM HCL 5 MG/ML-1ML VIAL ONE; -MODA200T50 PO; +MODA200T73 PO; +ONDA-188; +ONDANSETRON ODT 4 MG TAB PO ONE; +OXYB5TAB24; +PROPOFOL 10 MG/ML 20 ML IV ONE; +SODIUM CHLORIDE 0.9% 1,000 ML IV ONE; +SODIUM CHLORIDE LOCK 10 ML ONE; +SUCCINYLCHOLINE CHLORIDE 20 MG/ML 10ML VIAL IV ONE; +TIZA4TAB7; +TOPI100T68; +ZOLP5TAB5; +diphenhdrAMINE HCL 50 MG/1 ML VL ONE; +fentaNYL CITRATE 100 MCG/2 ML VL ONE
[2021-10-16 07:06] LABS: BUN/Creatinine Ratio 27.4; Calcium 9.2 mg/dL (8.5-10.1); Potassium 3.7 mmol/L (3.5-5.1)
[2021-10-16 07:19] LABS: Basophils # (auto) 0 10 ^3/uL (0-0.2); Basophils % (auto) 0.5 % (0.0-2.0); Eosinophils # (auto) 0.1 10 ^3/uL (0-0.8); Eosinophils % (auto) 2.1 % (0.0-7.0); Hematocrit 45.9 % (36.0-46.0); Hemoglobin 15.7 g/dL (12.2-16.2); Lymphocytes # (auto) 1.4 10 ^3/uL (0.4-5.4); Mean Corpuscular Hemoglobin 32.1 pg (28.0-32.0); Mean Corpuscular Hgb Conc. 34.2 g/dL (32.0-36.0); Monocytes # (auto) 0.5 10 ^3/uL (0-1.3); Monocytes % (auto) 7.4 % (0.0-12.0); Neutrophils # (auto) 4.4 10 ^3/uL (1.6-8.6); Nucleated Red Blood Cells % 0.1 %; Red Blood Cells 4.89 10^6/uL (4.0-5.20); Red Cell Distribution Width 13.9 % (11.8-14.3); White Blood Cell 6.5 10^3/uL (4.4-10.8)
[2021-10-16 07:29] LABS: INR 1.05 (0.9-1.15)
[2021-10-16 15:27] VITALS: BP 130/65
== END | disposition home or self-care (01) ==
LOC: ER 05:47 → SUR 05:48 → ER 15:55
PROVIDERS: ATTEND Physician Assistant
DX: T18.108A Unspecified foreign body in esophagus causing other injury, initial encounter (principal); K22.10 Ulcer of esophagus without bleeding; K44.9 Diaphragmatic hernia without obstruction or gangrene; K31.4 Gastric diverticulum; K31.89 Other diseases of stomach and duodenum; K29.50 Unspecified chronic gastritis without bleeding; F41.9 Anxiety disorder, unspecified; G47.00 Insomnia, unspecified; F32.A Depression, unspecified; Z90.710 Acquired absence of both cervix and uterus; Z80.8 Family history of malignant neoplasm of other organs or systems; Z82.49 Family history of ischemic heart disease and other diseases of the circulatory system; Z82.5 Family history of asthma and other chronic lower respiratory diseases; Y82.8 Other medical devices associated with adverse incidents
CPT/HCPCS: 36415; 43239; 70490; 80048; 85025; 85610; 87426; 88305; 88312; 88342; 96361; 96374; 96375; 99284; J0330; J1610; J2001; J2060; J2250; J2704; J3010; J3490; J7030; Q0162

== ENCOUNTER 2023-09-21 21:32 | Inpatient (IN) | payer OTHER ==
[~2023-09-21] VITALS: Ht 152.4 cm; Wt 82.3 kg
[~2023-09-21 21:32] MED LIST changes: -ACYC-161 PO; +ACYC400T16 PO; -BUPR-160 PO; +BUPR-346 PO; +DEXT15CA; -DEXT15CA16; -FAMOTIDINE (10MG/ML) 2ML VL IV ONE; -GLUCAGON HYDROCHLORIDE (RDNA) 1 MG VIAL IM ONE; -GLUCAGON HYDROCHLORIDE (RDNA) 1 MG VIAL IV ONE; -LIDOCAINE 2% (LOCAL ANESTH.) PF 5ml SDV ONE; -LIDOCAINE HCL 2 % INJ 2ML MPF NEB ONE; -LIDOCAINE VISCOUS 2% 15ML UD MT ONE; -LIDOCAINE VISCOUS 2% 15ML UD ONE; -LIDOCAINE VISCOUS 2% 15ML UD PO ONE; -LORazepam 2MG/ML-1ML VIAL IV ONE; -MIDAZOLAM HCL 5 MG/ML-1ML VIAL ONE; -ONDANSETRON ODT 4 MG TAB PO ONE; -PROPOFOL 10 MG/ML 20 ML IV ONE; -SODIUM CHLORIDE 0.9% 1,000 ML IV ONE; -SODIUM CHLORIDE LOCK 10 ML ONE; -SUCCINYLCHOLINE CHLORIDE 20 MG/ML 10ML VIAL IV ONE; +TIZA-142; -TIZA4TAB7; -diphenhdrAMINE HCL 50 MG/1 ML VL ONE; -fentaNYL CITRATE 100 MCG/2 ML VL ONE
[2023-09-21 22:26] VITALS: PULSE 100; RESP 16; O2SAT 100
[2023-09-21 23:45] LABS: Eosinophils # (auto) 0.1 10 ^3/uL (0-0.8); Eosinophils % (auto) 1.4 % (0.0-7.0); Hemoglobin 7.4 g/dL (12.2-16.2); Lymphocytes # (auto) 1.7 10 ^3/uL (0.4-5.4); Monocytes # (auto) 0.8 10 ^3/uL (0-1.3); Neutrophils # (auto) 5.1 10 ^3/uL (1.6-8.6); White Blood Cell 7.8 10^3/uL (4.4-10.8)
[2023-09-21 23:47] LABS: Basophils # (auto) 0.1 10 ^3/uL (0-0.2); Basophils % (auto) 0.7 % (0.0-2.0); Hematocrit 23.4 % (36.0-46.0); Lymphocytes % (auto) 22.1 % (10.0-50.0); Mean Corpuscular Hemoglobin 25.6 pg (28.0-32.0); Mean Corpuscular Hgb Conc. 31.5 g/dL (32.0-36.0); Mean Corpuscular Volume 81.3 fL (80.0-100.0); Monocytes % (auto) 10.6 % (0.0-12.0); Neutrophils % (auto) 65.2 % (37.0-80.0); Red Blood Cells 2.87 10^6/uL (4.0-5.20); Red Cell Distribution Width 18.2 % (11.8-14.3)
[2023-09-21] MEDS: HYDROcodone-ACET 5/325MG TAB PO ONE (23:51)
[2023-09-22] VITALS (9 sets, daily range): BP systolic 111–114; BP diastolic 38–67; PULSE 79–89; RESP 15–21; TEMP 97.3–98.5; O2SAT 98–100
[2023-09-22 00:11] LABS: Alanine Aminotransferase 11 U/L (7-40); Albumin 3.3 g/dL (3.2-4.8); Alkaline Phosphatase 81 U/L (46-116); Anion Gap 7 (5-15); Aspartate Aminotransferase 13 U/L (13-40); BUN/Creatinine Ratio 45.3 (10.0-20.0); Bilirubin, Total 0.2 mg/dL (0.2-1.0); Blood Urea Nitrogen 24 mg/dL (9-23); Calcium 8.6 mg/dL (8.7-10.4); Carbon Dioxide 21 mmol/L (20-30); Chloride 111 mmol/L (98-107); Glucose 115 mg/dL (74-106); Potassium 3.8 mmol/L (3.5-5.1); Sodium 139 mmol/L (136-145)
[2023-09-22 00:21] LABS: Total Protein 5.6 g/dL (5.7-8.2)
[2023-09-22] MEDS: PIPERACILLIN-TAZOB 3.375GM 100 ML IV ONE (00:22)
[2023-09-22] MEDS: VANCOMYCIN 1GM/200ML 200 ML IV ONE (00:25)
[2023-09-22] MEDS: MORPHINE SULFATE INJ 2 MG/ml SYRG IV ONE (01:28)
[2023-09-22] MEDS: ONDANSETRON HCL 4 MG/2 ML VIAL IV ONE (01:28)
[2023-09-22] MEDS ORDERED: ACETAMINOPHEN 325 MG TAB PO PRN (01:30)
[2023-09-22] MEDS ORDERED: VANCOMYCIN PER PHARMACY 0 MG IV SCH (01:30)
[2023-09-22 01:57] LABS: Urine Amorphous Crystal FEW /hpf (None Seen); Urine Bacteria NONE SEEN /hpf (None Seen); Urine Blood Negative /uL (Negative); Urine Clarity Clear (Clear); Urine Color Yellow (Yellow); Urine Protein, UAD Negative (Negative); Urine Specific Gravity 1.019 (1.001-1.035); Urine WBC 1 /hpf (0 - 5); Urine pH 6.5 (5.0-8.0)
[2023-09-22] MEDS: MORPHINE SULFATE INJ 2 MG/ml SYRG IV PRN (05:12)
[2023-09-22] MEDS: ONDANSETRON HCL 4 MG/2 ML VIAL IV PRN (05:12)
[2023-09-22 07:10] LABS: Eosinophils # (auto) 0.2 10 ^3/uL (0-0.8); Monocytes # (auto) 0.8 10 ^3/uL (0-1.3); White Blood Cell 6.4 10^3/uL (4.4-10.8)
[2023-09-22 07:12] LABS: Basophils # (auto) 0 10 ^3/uL (0-0.2); Basophils % (auto) 0.7 % (0.0-2.0); Eosinophils % (auto) 2.9 % (0.0-7.0); Hematocrit 21.2 % (36.0-46.0); Lymphocytes # (auto) 2.1 10 ^3/uL (0.4-5.4); Lymphocytes % (auto) 32.6 % (10.0-50.0); Mean Corpuscular Hemoglobin 26.5 pg (28.0-32.0); Mean Corpuscular Hgb Conc. 32.1 g/dL (32.0-36.0); Mean Corpuscular Volume 82.7 fL (80.0-100.0); Monocytes % (auto) 11.9 % (0.0-12.0); Neutrophils # (auto) 3.3 10 ^3/uL (1.6-8.6); Neutrophils % (auto) 51.9 % (37.0-80.0); Red Blood Cells 2.56 10^6/uL (4.0-5.20); Red Cell Distribution Width 18.4 % (11.8-14.3)
[2023-09-22 07:16] LABS: INR 1.14 (0.9-1.15); Prothrombin Time 11.9 sec (9.3-11.8)
[2023-09-22 07:47] LABS: Hemoglobin 6.8 g/dL (12.2-16.2)
[2023-09-22] MEDS: HYDROcodone-ACET 5/325MG TAB PO PRN (09:03)
[2023-09-22] MEDS ORDERED: CEFTRIAXONE SODIUM 2 GM in D5W 5% 100 ML IV SCH ×2 (12:30→14:30)
[2023-09-22] MEDS ORDERED: VANCOMYCIN 1GM/200ML 200 ML IV SCH (20:00)
[2023-09-23] VITALS (7 sets, daily range): BP systolic 109–123; BP diastolic 45–59; PULSE 67–84; RESP 16–20; TEMP 98.2–98.4; O2SAT 94–98
[2023-09-23] MEDS: ENOXAPARIN SOD 40 MG/0.4 ML SYRINGE SC SCH (09:18)
[2023-09-23 12:03] LABS: Hemoglobin 8.2 g/dL (12.2-16.2)
[2023-09-23 12:05] LABS: Hematocrit 25.5 % (36.0-46.0)
[2023-09-24] VITALS (7 sets, daily range): BP systolic 97–122; BP diastolic 44–61; PULSE 63–77; RESP 15–18; TEMP 97.9–98.7; O2SAT 94–98
[2023-09-24 05:52] LABS: Anion Gap 5 (5-15); Carbon Dioxide 27 mmol/L (20-30); Chloride 112 mmol/L (98-107); Potassium 4.2 mmol/L (3.5-5.1); Sodium 144 mmol/L (136-145)
[2023-09-24 05:54] LABS: Calcium 8.7 mg/dL (8.7-10.4)
[2023-09-24 05:59] LABS: BUN/Creatinine Ratio 47.8 (10.0-20.0); Blood Urea Nitrogen 22 mg/dL (9-23); Glucose 95 mg/dL (74-106)
[2023-09-24 06:23] LABS: Basophils # (auto) 0 10 ^3/uL (0-0.2); Basophils % (auto) 0.7 % (0.0-2.0); Eosinophils # (auto) 0.2 10 ^3/uL (0-0.8); Hemoglobin 7.2 g/dL (12.2-16.2); Monocytes # (auto) 0.6 10 ^3/uL (0-1.3); Neutrophils # (auto) 3.8 10 ^3/uL (1.6-8.6); Red Cell Distribution Width 18.3 % (11.8-14.3)
[2023-09-24 06:37] LABS: Eosinophils % (auto) 3.4 % (0.0-7.0); Hematocrit 22.3 % (36.0-46.0); Lymphocytes # (auto) 2.1 10 ^3/uL (0.4-5.4); Lymphocytes % (auto) 31.4 % (10.0-50.0); Mean Corpuscular Hemoglobin 26.9 pg (28.0-32.0); Mean Corpuscular Hgb Conc. 32.4 g/dL (32.0-36.0); Mean Corpuscular Volume 83.1 fL (80.0-100.0); Monocytes % (auto) 8.5 % (0.0-12.0); Red Blood Cells 2.68 10^6/uL (4.0-5.20); White Blood Cell 6.7 10^3/uL (4.4-10.8)
[2023-09-25 05:00] VITALS: BP 108/47; PULSE 68; RESP 16; TEMP 98.6; O2SAT 96
[2023-09-25 08:00] VITALS: BP 95/51; PULSE 74; PULSE 80; RESP 18; RESP 19; TEMP 98.2; O2SAT 95
[2023-09-25 14:53] VITALS: BP 106/48; PULSE 80; RESP 21; TEMP 98; O2SAT 95
[2023-09-25 17:00] VITALS: BP 101/42; PULSE 74; RESP 20; TEMP 98; O2SAT 94
[2023-09-25] MEDS ORDERED: VANCOMYCIN PER PHARMACY 0 MG IV SCH (17:00)
[2023-09-25] MEDS: VANCOMYCIN 1GM/200ML 200 ML IV ONE (17:49)
[2023-09-25 22:00] VITALS: BP 119/56; PULSE 78; RESP 18; TEMP 98.5; O2SAT 97
[2023-09-26 04:07] VITALS: BP 103/43; PULSE 80; RESP 16; TEMP 98.5; O2SAT 95
[2023-09-26 09:00] VITALS: BP 114/37; PULSE 76; RESP 20; TEMP 98.7; O2SAT 95
[2023-09-26] MEDS: VANCOMYCIN 1GM/200ML 200 ML IV SCH (10:07)
[2023-09-26] MEDS: CEFTRIAXONE SODIUM 2 GM in D5W 5% 100 ML IV SCH (11:25)
[2023-09-26 13:00] VITALS: BP 97/52; PULSE 68; RESP 17; TEMP 98.1; O2SAT 99
[2023-09-26 17:00] VITALS: BP 119/48; PULSE 74; RESP 17; TEMP 98; O2SAT 99
[2023-09-26] MEDS: MORPHINE SULFATE INJ 2 MG/ml SYRG IV PRN (19:45)
[2023-09-26 22:00] VITALS: BP 105/44; PULSE 74; RESP 21; TEMP 98.3; O2SAT 100
[2023-09-27 05:00] VITALS: BP 99/45; PULSE 97; RESP 20; TEMP 98; O2SAT 99
[2023-09-27 09:00] VITALS: BP 109/52; PULSE 88; RESP 16; TEMP 97.5; O2SAT 95
[2023-09-27 13:00] VITALS: BP 106/53; PULSE 73; RESP 20; TEMP 98.3; O2SAT 98
[2023-09-27 22:00] VITALS: BP 117/53; PULSE 77; RESP 18; TEMP 98.1; O2SAT 97
[2023-09-28 05:00] VITALS: BP 107/49; PULSE 66; RESP 18; TEMP 98.1; O2SAT 97
[2023-09-28 09:00] VITALS: BP 101/69; PULSE 84; RESP 18; TEMP 98.3; O2SAT 100
[2023-09-28 13:00] VITALS: BP 93/49; PULSE 76; RESP 18; TEMP 98.1; O2SAT 100
[2023-09-28 16:54] VITALS: BP 106/47; PULSE 81; RESP 19; TEMP 97.4; O2SAT 98
[2023-09-28 20:00] VITALS: BP 109/42; PULSE 87; RESP 16; RESP 18; TEMP 98.5
[2023-09-28 22:00] VITALS: BP 93/48; PULSE 78; RESP 19; TEMP 98.5; O2SAT 96
[2023-09-29] VITALS (7 sets, daily range): BP systolic 100–121; BP diastolic 45–63; PULSE 73–92; RESP 18–22; TEMP 97.9–98.6; O2SAT 95–100
[2023-09-30] VITALS (14 sets, daily range): BP systolic 88–120; BP diastolic 42–57; PULSE 64–82; RESP 16–22; TEMP 98.1–99.5; O2SAT 92–100
[2023-09-30 08:30] LABS: Basophils # (auto) 0.1 10 ^3/uL (0-0.2); Eosinophils # (auto) 0.2 10 ^3/uL (0-0.8); Lymphocytes # (auto) 2.4 10 ^3/uL (0.4-5.4); Monocytes # (auto) 0.7 10 ^3/uL (0-1.3); Nucleated Red Blood Cells % 0.1 %
[2023-09-30 08:32] LABS: Eosinophils % (auto) 3.3 % (0.0-7.0); Hematocrit 18.6 % (36.0-46.0); Lymphocytes % (auto) 34.2 % (10.0-50.0); Mean Corpuscular Hemoglobin 25.1 pg (28.0-32.0); Mean Corpuscular Hgb Conc. 29.7 g/dL (32.0-36.0); Mean Corpuscular Volume 84.5 fL (80.0-100.0); Monocytes % (auto) 10.3 % (0.0-12.0); Neutrophils # (auto) 3.6 10 ^3/uL (1.6-8.6); Neutrophils % (auto) 51.2 % (37.0-80.0)
[2023-09-30 08:53] LABS: Hemoglobin 5.5 g/dL (12.2-16.2)
[2023-09-30 09:53] LABS: Anisocytosis Slight; Hypochromia Moderate; Platelet Estimate Adequate
[2023-09-30] MEDS: PANTOPRAZOLE 40mg/50ML NS AE 50 ML IV SCH (19:22)
[2023-09-30] MEDS: OXYBUTYNIN CHL 5 MG TAB PO SCH (21:57)
[2023-10-01] VITALS (7 sets, daily range): BP systolic 90–116; BP diastolic 40–62; PULSE 60–75; RESP 14–22; TEMP 97.8–98.8; O2SAT 94–99
[2023-10-01 09:14] LABS: Basophils # (auto) 0.1 10 ^3/uL (0-0.2); Eosinophils # (auto) 0.2 10 ^3/uL (0-0.8); Eosinophils % (auto) 3.3 % (0.0-7.0); Hemoglobin 7.7 g/dL (12.2-16.2); Lymphocytes # (auto) 1.6 10 ^3/uL (0.4-5.4); Monocytes # (auto) 0.7 10 ^3/uL (0-1.3); Nucleated Red Blood Cells % 0.1 %
[2023-10-01 09:16] LABS: Basophils % (auto) 1.1 % (0.0-2.0); Hematocrit 25.4 % (36.0-46.0); Lymphocytes % (auto) 24.9 % (10.0-50.0); Mean Corpuscular Hemoglobin 25.9 pg (28.0-32.0); Mean Corpuscular Hgb Conc. 30.5 g/dL (32.0-36.0); Mean Corpuscular Volume 84.9 fL (80.0-100.0); Neutrophils % (auto) 60.7 % (37.0-80.0); Red Blood Cells 2.99 10^6/uL (4.0-5.20); Red Cell Distribution Width 16.9 % (11.8-14.3); White Blood Cell 6.5 10^3/uL (4.4-10.8)
[2023-10-01 09:35] LABS: Chloride 111 mmol/L (98-107); Potassium 4.4 mmol/L (3.5-5.1); Sodium 138 mmol/L (136-145)
[2023-10-01 09:36] LABS: Anion Gap 6 (5-15); Calcium 8.9 mg/dL (8.5-10.1); Carbon Dioxide 21 mmol/L (20-30)
[2023-10-01 09:41] LABS: BUN/Creatinine Ratio 27.1 (10.0-20.0); Blood Urea Nitrogen 16 mg/dL (9-23); Glucose 126 mg/dL (74-106)
[2023-10-02 05:00] VITALS: BP 110/63; PULSE 98; RESP 22; TEMP 98.2; O2SAT 99
[2023-10-02 06:27] LABS: Hemoglobin 7.5 g/dL (12.2-16.2)
[2023-10-02 11:00] VITALS: BP 109/56; PULSE 65; RESP 18; TEMP 98; O2SAT 98
[2023-10-02 13:00] VITALS: BP 109/46; PULSE 69; RESP 18; TEMP 97.9; O2SAT 98
[2023-10-02 17:02] VITALS: BP 119/60; PULSE 77; RESP 18; TEMP 98; O2SAT 97
[2023-10-02] MEDS: SENNA 8.6 MG TAB PO SCH (21:31)
[2023-10-02 22:00] VITALS: BP 119/40; PULSE 66; RESP 20; TEMP 98.3; O2SAT 97
[2023-10-02] MEDS: SUCRALFATE 1 GM/10 ML ORAL SUSP PO SCH (23:31)
[2023-10-03] VITALS (7 sets, daily range): BP systolic 97–113; BP diastolic 39–55; PULSE 63–74; RESP 18–21; TEMP 97.4–98.4; O2SAT 95–100
[2023-10-03 07:14] LABS: Anion Gap 6 (5-15); Carbon Dioxide 23 mmol/L (20-30); Chloride 112 mmol/L (98-107); Potassium 4.7 mmol/L (3.5-5.1); Sodium 141 mmol/L (136-145)
[2023-10-03 07:15] LABS: Calcium 9.1 mg/dL (8.5-10.1)
[2023-10-03 07:20] LABS: BUN/Creatinine Ratio 26.8 (10.0-20.0); Blood Urea Nitrogen 15 mg/dL (9-23); Glucose 89 mg/dL (74-106)
[2023-10-03 07:53] LABS: Hematocrit 23.7 % (36.0-46.0); Hemoglobin 7.4 g/dL (12.2-16.2)
[2023-10-03] MEDS: PANTOPRAZOLE 40mg/50ML NS AE 50 ML IV ONE (11:52)
[2023-10-03] MEDS: PANTOPRAZOLE 40 MG/10 ML VIAL INJ IV SCH (21:41)
[2023-10-04 05:27] VITALS: BP 100/39; PULSE 77; RESP 18; RESP 99; TEMP 98.2; O2SAT 99
[2023-10-04 08:00] VITALS: BP 114/51; PULSE 67; RESP 18; TEMP 98.1; O2SAT 99
[2023-10-04] MEDS: cefTRIAXone 2GM/50ML D5W 50 ML IV SCH (08:29)
[2023-10-04 08:51] VITALS: BP 114/51; PULSE 67; RESP 67; TEMP 98.1; O2SAT 99
[2023-10-04 12:38] VITALS: BP 93/41; PULSE 60; RESP 18; TEMP 98.1; O2SAT 97
[2023-10-04 17:19] VITALS: BP 114/48; PULSE 66; RESP 17; TEMP 97.6; O2SAT 98
[2023-10-05] VITALS (8 sets, daily range): BP systolic 84–132; BP diastolic 36–78; PULSE 62–84; RESP 16–93; TEMP 97.8–98.5; O2SAT 96–100
[2023-10-05] MEDS ORDERED: LACTULOSE 20Gm/30ML SOLN PO PRN (18:00)
[2023-10-06] VITALS (7 sets, daily range): BP systolic 95–116; BP diastolic 29–59; PULSE 58–72; RESP 16–21; TEMP 36.9; O2SAT 98–100
[2023-10-06] MEDS: LACTULOSE 20Gm/30ML SOLN PO PRN (06:12)
[2023-10-06 11:55] LABS: Basophils # (auto) 0.1 10 ^3/uL (0-0.2); Basophils % (auto) 0.8 % (0.0-2.0); Eosinophils # (auto) 0.3 10 ^3/uL (0-0.8); Eosinophils % (auto) 3.9 % (0.0-7.0); Hematocrit 23.9 % (36.0-46.0); Hemoglobin 7.5 g/dL (12.2-16.2); Lymphocytes # (auto) 1.7 10 ^3/uL (0.4-5.4); Lymphocytes % (auto) 22.4 % (10.0-50.0); Mean Corpuscular Hemoglobin 25.6 pg (28.0-32.0); Mean Corpuscular Hgb Conc. 31.4 g/dL (32.0-36.0); Mean Corpuscular Volume 81.5 fL (80.0-100.0); Monocytes # (auto) 0.7 10 ^3/uL (0-1.3); Monocytes % (auto) 9.7 % (0.0-12.0); Neutrophils # (auto) 4.7 10 ^3/uL (1.6-8.6); Neutrophils % (auto) 63.2 % (37.0-80.0); Red Blood Cells 2.93 10^6/uL (4.0-5.20); Red Cell Distribution Width 17.9 % (11.8-14.3); White Blood Cell 7.5 10^3/uL (4.4-10.8)
[2023-10-07] VITALS (9 sets, daily range): BP systolic 94–107; BP diastolic 37–54; PULSE 66–84; RESP 18–20; TEMP 36.7; O2SAT 94–100
== END 2023-10-07 23:20 | disposition short-term general hospital (02) | DRG 560 ==
LOC: EDBD 21:32 → ER 21:32 → OVERFLOW 09-22 05:55 → WEST WING 09-22 14:01
PROVIDERS: ADMIT Nurse Practitioner Family; ATTEND Internal Medicine
PROC: 30233N1 Transfusion of Nonautologous Red Blood Cells into Peripheral Vein, Percutaneous Approach (ICD-10-PCS; principal; 2023-09-22)
DX: T84.54XA Infection and inflammatory reaction due to internal left knee prosthesis, initial encounter (principal); L02.416 Cutaneous abscess of left lower limb; L03.116 Cellulitis of left lower limb; R78.81 Bacteremia; M97.12XA Periprosthetic fracture around internal prosthetic left knee joint, initial encounter; B95.7 Other staphylococcus as the cause of diseases classified elsewhere; D51.0 Vitamin B12 deficiency anemia due to intrinsic factor deficiency; E11.9 Type 2 diabetes mellitus without complications; Y83.1 Surgical operation with implant of artificial internal device as the cause of abnormal reaction of the patient, or of later complication, without mention of misadventure at the time of the procedure; E03.9 Hypothyroidism, unspecified; F32.A Depression, unspecified; F41.9 Anxiety disorder, unspecified; E66.9 Obesity, unspecified; I10 Essential (primary) hypertension; J45.909 Unspecified asthma, uncomplicated; T84.033A Mechanical loosening of internal left knee prosthetic joint, initial encounter; Z96.653 Presence of artificial knee joint, bilateral; S81.002A Unspecified open wound, left knee, initial encounter; W01.0XXA Fall on same level from slipping, tripping and stumbling without subsequent striking against object, initial encounter; Z88.2 Allergy status to sulfonamides; Z88.0 Allergy status to penicillin; Z88.8 Allergy status to other drugs, medicaments and biological substances; Z90.710 Acquired absence of both cervix and uterus; Z82.49 Family history of ischemic heart disease and other diseases of the circulatory system; Z82.5 Family history of asthma and other chronic lower respiratory diseases; Z68.35 Body mass index [BMI] 35.0-35.9, adult; Y93.89 Activity, other specified; Y92.89 Other specified places as the place of occurrence of the external cause; Y99.8 Other external cause status
CPT/HCPCS: 36415; 73562; 73700; 80048; 80053; 80202; 81001; 82270; 82565; 82607; 83540; 83550; 83605; 85014; 85018; 85025; 85610; 86850; 86900; 86901; 86920; 87040; 87077; 87186; 93005; 93306; 93926; 93971; 96365; 96375; C9113; G0378; J0696; J2405; J7060

== ENCOUNTER 2024-12-01 04:33 | Inpatient (IN) | payer OTHER ==
[~2024-12-01] VITALS: Ht 149.9 cm; Wt 61.3 kg
--- NOTE | 2024-12-01 05:14 | ECG ---
[facility] Test Date: 2024-12-01 Test Time: 04:48:59 Pat Name: BLESSING DALLAS Department: ED Room: 0234T Gender: F Electronic Calibration Technician: ESTHER : 1950 Requested By: EMERGENCY EMERGENCY Order Number: [id number] Reading MD: Geoffrey Hernandez Measurements Intervals Pilot Rate: 81 P: -17 MS: 184 QRS: -17 QRSD: 100 T: 46 QT: 375 QTc: 436 Interpretive Statements Sinus rhythm Ventricular premature complex Consider left atrial enlargement Borderline left axis deviation Electronically Signed On 12-04-2024 20:54:47 PDT by Geoffrey Hernandez Please click the below link to view image of tracing.
[2024-12-01 08:00] VITALS: PULSE 77; RESP 18; O2SAT 96
[2024-12-01 08:17] LABS: Urine Amorphous Crystal FEW /hpf (None Seen); Urine Bacteria FEW /hpf (None Seen); Urine Blood Negative /uL (Negative); Urine Clarity Turbid (Clear); Urine Color Yellow (Yellow); Urine Protein, UAD Negative (Negative); Urine Specific Gravity 1.018 (1.001-1.035); Urine Squamous Epithelial Cell None Seen /hpf (<5); Urine Urobilinogen Normal (Negative); Urine WBC 3 /HPF (0-5)
--- NOTE | 2024-12-01 08:29 | ED.PDOC ---
Marni. trauma (HPI) HPI Comments 74 y.o female with PMHx of chronic back pain, thyroid disease, asthma and depression, presents to the ED via EMS for a chief complaint of body pain s/p slip and twist incident 3 days ago. Patient reports no fall, states she twisted which caused her to have increased back spasms radiating to her neck. Patient has a history of multiple fractures including back, hips, bilateral knees and is immobile. Patient is able to move her feet but due to the severity of her knee replacement surgery and infection, she is unable to bear any weight which is not new. Patient denies any trauma, states she was not able to pick herself up. Chief Complaint: Fall Injury Time Seen by MD: 08:20 Primary Care Provider: YUNG Reviewed notes: Nurses Notes, Tariff Compiling Clerk Notes, Medications, Allergies Allergies: Coded Allergies: Prune (Verified Allergy, Severe, ALOC, 09/22/23) Spoke to pt at bedside to confirm allergies. Pt stated when she was given prune juice she instantly felt dizzy and fitness coordinator to her having a coma. Penicillins (Verified Adverse Reaction, Intermediate, HIVES ALL OVER BODY, 09/22/23) Spoke with pt at bedside 09-22-23 to confirm penicillin allergy. Patient stated that allergic reaction occurred when she was a teenager. She doesn't recall having any swelling of the lips of shortness of breath. However, she experienced red hives all over her body. Since then she has only had Clindamycin PO for a dental procedure as well as Ertapenem in 2019 at [facility] for ESBL in her urine. Sulfa Antibiotics (Verified Adverse Reaction, Intermediate, ITCHINESS OF BODY, 09/22/23) Spoke to pt at bedside to confirm Sulfa allergy. Pt stated that when she had a Sulfa abx a few years ago she experiened itchiness all over her body Uncoded Allergies: MYCINS (Allergy, Unknown, 11/16/17) Home Meds Reported Medications Levothyroxine Sodium (Levothyroxine Sodium) 200 Mcg Tab 10/31/19 Oxybutynin Chloride (Ditropan Xl) 5 Mg Tab 10/31/19 Tizanidine Hydrochloride (Tizanidine Hcl) 4 Mg Tab 10/31/19 Topiramate (Topiramate) 100 Mg Tab 10/31/19 Zolpidem Tartrate (Zolpidem Tartrate) 5 Mg Tab 10/31/19 Bupropion HCl (Bupropion Hydrochloride) 100 Mg Tab 10/31/19 Fluoxetine Hcl (Fluoxetine Hcl) 40 Mg Cap 10/31/19 Ondansetron HCl (Ondansetron Hydrochloride) 4 Mg Tab 10/31/19 Famotidine (Famotidine) 20 Mg Tab 10/31/19 Dextroamphetamine Sulfate (Dextroamphetamine Sulfate) 15 Mg Cap 10/31/19 Fluoxetine Hcl (Fluoxetine Hcl) 20 Mg Cap, 40 MG PO DAILY for 30 Days, MG 10/17/19 Oxybutynin Chloride (Ditropan Xl) 5 Mg Tab, 5 MG PO DAILY, TAB 10/17/19 Bupropion Hcl (Bupropion Hcl) 100 Mg Tab, 150 MG PO Q8HR for 30 Days, MG 10/17/19 Multiple Vitamin (Multivitamins) Tab, 1 TAB PO DAILY, #90 TAB 3 Refills 11/16/17 Acyclovir (ZOVIRAX TABLET) 400 Mg Tb, 1 TAB PO DAILY, #60 TAB 3 Refills 11/16/17 Levothyroxine Sodium (Levothyroxine Sodium) 25 Mcg Tab, 25 MCG PO QAM, MCG 11/16/17 Tizanidine Hydrochloride (Zanaflex) 4 Mg Tab, 1 TAB PO BID, #60 TAB 11/16/17 Cyanocobalamin (B-12 Compliance Injection) 1,000 Mcg/Ml Kit, 1000 MCG IJ QWEEKLY, KIT 11/16/17 Modafinil (MODAFINIL) 200 Mg Tab, 200 MG PO for NARCOLEPSY, TAB 04/11/17 Dextroamphetamine Sulfate (Dextroamphetamine Sulfate) 10 Mg Tab, 30 MG PO DAILY, TAB 04/11/17 Information Source: Patient Mode of Arrival: EMS Severity: Moderate Timing: Days (3) Duration: Since onset Location: Neck Location of laceration: None Mechanism: Fall Past Medical History PAST MEDICAL HISTORY: Anxiety, Asthma, Depression, Thyroid Surgical History: Appendectomy, Hysterectomy MENTAL HEALTH THERAPIST History: Denies all MENTAL HEALTH THERAPIST Hx Family History Family History: Reviewed,noncontributory to illness, Family hx of HTN Social History Smoker: Non-Smoker Alcohol: Denies ETOH Use Drugs: Denies Drug Use Lives In: Home Constitutional: denies: chills, diaphoresis, fatigue, fever, malaise, sweats, weakness, others EENTM: denies: blurred vision, double vision, ear bleeding, ear discharge, ear drainage, ear pain, ear ringing, eye pain, eye redness, hearing loss, mouth pain, mouth swelling, nasal discharge, nose bleeding, nose congestion, nose pain, photophobia, tearing, throat pain, throat swelling, voice changes, others Respiratory: denies: cough, hemoptysis, orthopnea, SOB at rest, shortness of breath, SOB with excertion, stridor, wheezing, others Cardiovascular: denies: chest pain, dizzy spells, diaphoresis, Dyspnea on exertion, edema, irregular heart beat, left arm pain, lightheadedness, pal pitations, PND, syncope, others Gastrointestinal: denies: abdomen distended, abdominal pain, blood streaked bowels, constipated, diarrhea, dysphagia, difficulty swallowing, hematemesis, melena, nausea, poor appetite, poor fluid intake, rectal bleeding, rectal pain, vomiting, others Genitourinary: denies: abnormal vagina bleeding, burning, dyspareunia, dysuria, flank pain, frequency, hematuria, incontinence, pain, , vagina discharge, urgency, others Neurological: denies: dizziness, fainting, headache, left sided numbness, left sided weakness, numbness, paresthesia, pre-existing deficit, right sided numbness, right sided weakness, seizure, speech problems, tingling, tremors, weakness, others Musculoskeletal: reports: back pain, muscle pain, neck pain; denies: gout, joint pain, joint swelling, muscle stiffness, others Integumetry: denies: bruises, change in color, change in hair/nails, dryness, laceration, lesions, lumps, rash, wounds, others Allergic/Immunocompromised: denies: Difficulty Healing, Frequent Infections, Hives, Itching, others Hematologic/Lymphatic: denies: anemia, blood clots, easy bleeding, easy bruising, swollen glands, others Endocrine: denies: excessive hunger, excessive sweating, excessive thirst, excessive urination, flushing, intolerance to cold, intolerance to heat, unexplained weight gain, unexplained weight loss, others Psychiatric: denies: anxiety, bipolar disorder, depression, hopeless, panic disorder, schizophrenia, sleepless, suicidal, others All Other Systems: Reviewed and Negative Physical Exam General Appearance: Moderate Distress HEENT: Normal ENT Inspection, Pharynx Normal, TMs Normal Neck: Full Range of Motion, Non-Tender, Normal, Normal Inspection Respiratory: Chest Non-Tender, Lungs Clear, No Accessory Muscle Use, No Resp iratory Distress, Normal Breath Sounds Cardiovascular: No Edema, No JVD, No Murmur, No Gallop, Normal Peripheral Pulses, Regular Rate/Rhythm Breast Exam: Deferred Gastrointestinal: No Organomegaly, Non Tender, No Pulsatile Mass, Normal Bowel Sounds, Soft Genitalia: Deferred Pelvic: Deferred Rectal: Deferred Extremities: No calf tenderness, No pedal edema Musculoskeletal : Apperance: Normal Neurologic: Alert Cerebellar Function: NOT DONE Reflexes: NOT DONE Skin: Dry, Normal Color, Warm Peripheral Pulses: 3+ Radial (R), 3+ Radial (L) Lymphatic: No Adenopathy Was a procedure done? Was a procedure done?: No Differential Diagnosis Multiple Trauma: Fractures, Contusion Neck Injury: Cervical Muscle Spasm, Cervical Sprain, Cervical Strain X-Ray, Labs, Meds, VS Vital Signs Date Time Temp Pulse Resp B/P (MAP) Pulse Ox O2 Delivery O2 Flow Rate FiO2 12/01/24 09:23 74 16 111/48 12/01/24 08:53 77 18 131/60 12/01/24 08:00 99.2 77 18 131/60 (83) 96 99.2 12/01/24 08:00 77 18 96 Room Air* 0 21 12/01/24 04:48 81 12/01/24 04:46 101.6 96 20 115/64 (81) 95 101.6 Lab Test 12/01/24 08:02 Range/Units Urine Color Yellow Yellow Urine Clarity Turbid H Clear Urine pH 7.0 5.0-9.0 Urine Specific [place] 1.018 1.001-1.035 Urine Protein Negative Negative Urine Ketones Negative Negative Urine Blood Negative Negative /uL Urine Nitrite Negative Negative Urine Bilirubin Negative Negative Urine Urobilinogen Normal Negative mg/dL Urine Leukocyte Esterase Negative Negative /uL Urine RBC <1 0 - 4 /hpf Urine Microscopic WBC 3 0-5 /HPF Urine Squamous Epithelial Cells None seen <5 /hpf Urine Amorphous Crystals Few None Seen /hpf Urine Bacteria Few H None Seen /hpf Urine Glucose Normal Normal mg/dL Current Medications Medications (Trade) Dose Ordered Sig/Angelo Route Start Time Stop Time Status Last Admin Morphine Sulfate 4 mg ONCE ONCE IV 12/01/24 08:30 12/01/24 08:31 DC 12/01/24 08:53 Ondansetron HCl (Zofran) 4 mg ONCE ONCE IV 12/01/24 08:30 12/01/24 08:31 DC 12/01/24 08:53 Patient alert. Can not get out of bed. Has fever. Saturation pristine on room air. Heart rate within normal limits. Possible pneumonitis. Urinalysis within normal limits. For pain she was given morphine. Was given Zofran. Establish intravenous access. Possibly will need placement. She can not move her extremities has a in the feet. Reviewed her history. Spoke with choice physician. Explained to the patient. Continue monitoring. Time of 1ST Reevaluation: 08:24 Reevaluation 1ST: Unchanged Patient Education/Counseling: Diagnosis, Treatment, Prognosis Family Education/Counseling: No Family Present Departure 1 Departure Time of Disposition: 09:48 Impression: Primary Impression: Acute exacerbation of chronic low back pain Disposition: ADMITTED INPATIENT Admit to: Med Surg Condition: Guarded Critical Care Note Critical Care Time?: No Stability Stability form required: No I personally scribed for YANN AMATO MD ([email or web address]) on 12/01/24 at 08:29. Electronically submitted by [employer] ([facility]). YANN AMATO MD Dec 01, 2024 08:29
[2024-12-01] MEDS: MORPHINE SULFATE 4 MG/ML SYR/VIAL IV ONE (08:53)
[2024-12-01] MEDS: ONDANSETRON HCL 4 MG/2 ML VIAL IV ONE (08:53)
[2024-12-01 10:16] LABS: Basophils # (auto) 0 10 ^3/uL (0-0.2); Basophils % (auto) 0.3 % (0.0-2.0); Eosinophils # (auto) 0 10 ^3/uL (0-0.8); Eosinophils % (auto) 0.3 % (0.0-7.0); Hematocrit 36.4 % (36.0-46.0); Hemoglobin 11.6 g/dL (12.2-16.2); Lymphocytes # (auto) 1.3 10 ^3/uL (0.4-5.4); Lymphocytes % (auto) 13.7 % (10.0-50.0); Mean Corpuscular Hemoglobin 27.3 pg (28.0-32.0); Mean Corpuscular Volume 85.4 fL (80.0-100.0); Monocytes # (auto) 0.9 10 ^3/uL (0-1.3); Monocytes % (auto) 10.1 % (0.0-12.0); Neutrophils # (auto) 6.9 10 ^3/uL (1.6-8.6); Neutrophils % (auto) 75.6 % (37.0-80.0); Nucleated Red Blood Cells % 0.1 %; Platelet Count (auto) 203 10^3/uL (140-450); Red Blood Cells 4.26 10^6/uL (4.0-5.20); Red Cell Distribution Width 16.6 % (11.8-14.3); White Blood Cell 9.1 10^3/uL (4.4-10.8)
--- NOTE | 2024-12-01 10:18 | DVH ---
XY CHEST PORTABLE, HISTORY: sob COMPARISON: CHEST PORTABLE on DOS: 11/03/19, CHEST PORTABLE on DOS: 10/31/19, CHEST PORTABLE on DOS: 08/09 CHEST PORTABLE on DOS: 11/03/19, CHEST PORTABLE on DOS: 10/31/19, CHEST PORTABLE on DOS: 10/31/19 TECHNICAL DATA: 1 view of the chest was obtained. FINDINGS: Lines and tubes: None Cardiomediastinal silhouette: normal Pulmonary vasculature: normal Lung expansion: normal Lung airspace: normal Lung interstitium: normal Pleura: normal Pneumothorax: no Bones: Unremarkable Other: no IMPRESSION: No acute intrathoracic abnormality.
[2024-12-01] MEDS: MORPHINE SULFATE INJ 2 MG/ml SYRG IV ONE (13:25)
--- NOTE | 2024-12-01 14:57 | DVH ---
XY R HIP COMPLETE XRAY, INDICATION: FALL TECHNICAL DATA: Frontal and frog lateral views were obtained of the right hip.] COMPARISON: L HIP COMPLETE XRAY on DOS: 11/04/19 FINDINGS: The right hip is normally located. The right hip joint is normally maintained with no marginal osteop hytes. No right hip fracture is identified. The right sacroiliac joint appears normal. IMPRESSION: No acute fracture radiographs of the right hip.
--- NOTE | 2024-12-01 14:58 | DVH ---
XY L HIP COMPLETE XRAY HISTORY: FALL TECHNICAL DATA: Frontal view was obtained of the pelvis with frontal view and frog lateral view of th e left hip. COMPARISON: L HIP COMPLETE XRAY on DOS: 11/04/19 FINDINGS: The left hip is normally located. No left hip fracture is identified. There is no abnormality involv ing the bony pelvis. The sacroiliac joints appear normal. The pubic symphysis appears normal. The con tralateral hip demonstrates no abnormality on the single frontal view. The proximal femurs demonstrat e no abnormality. There is degenerative change of the visualized lower lumbar spine. IMPRESSION: No acute fracture or dislocation of the pelvis and left hip. Left hip hardware appears intact.
[2024-12-01] MEDS: methylPREDNISolone SOD SUCC 125 MG/2 ML VL IV ONE (15:24)
[2024-12-01] MEDS ORDERED: MORPHINE SULFATE INJ 2 MG/ml SYRG IV PRN (16:00)
[2024-12-01] MEDS ORDERED: NITROGLYCERIN 0.4 MG SL TAB SL PRN (16:00)
[2024-12-01] MEDS: SODIUM CHLORIDE 0.9% 1,000 ML IV SCH (17:05)
[2024-12-01] MEDS: ACETAMINOPHEN 325 MG TAB PO PRN (17:10)
[2024-12-01] MEDS: ONDANSETRON HCL 4 MG/2 ML VIAL IV PRN (22:52)
[2024-12-01] MEDS: methylPREDNISolone SOD SUCC 40 MG/ML VL IV SCH (22:52)
[2024-12-01] MEDS: MORPHINE SULFATE INJ 2 MG/ml SYRG IV PRN (22:53)
[2024-12-02] MEDS: HYDROcodone-ACET 5/325MG TAB PO PRN (01:19)
--- NOTE | 2024-12-02 03:20 | DVHHP2 ---
LISA RAYMUNDO CUSTOMER ACCOUNT COORDINATOR 12/02/24 0319: History of Present Illness Reason for Visit: Back pain History of Present Illness 74-year-old female with past medical history of depression, anxiety, asthma, bilateral knee arthroplasty, left hip arthroplasty presents with complaints of sharp debilitating back pain x3 days. Patient endorsed a slip and twist incident a triggered muscle spasms. Endorsed she is immobile. At this time is unable to move her feet or legs. No complaints of falls, head injuries or LOC No additional complaints or modifying factors at this time Pulmonary: Asthma Psych: Anxiety, Depression Smoke: No ALCOHOL: none Drugs: None Lives: with Family Review of Systems Constitutional: No: Fever, Chills, Sweats, Weakness, Malaise, Other Eyes: No: Pain, Vision change, Conjunctivae inflammation, Eyelid inflammation, Other, Redness ENT: No: Ear pain, Ear discharge, Nose pain, Nose discharge, Nose congestion, Mouth pain, Mouth swelling, Throat pain, Throat swelling, Other Respiratory: No: Cough, Dry, Shortness of breath, SOB with excertion, Wheezing, Hemoptysis, Pleuritic Pain, Sputum, Wheezing, Other Cardiovascular: No: Chest Pain, Palpitations, Orthopnea, Paroxysmal Noc. Dyspnea, Edema, Lt Headedness, Other Gastrointestinal: No: Nausea, Vomiting, Abdominal Pain, Diarrhea, Constipation, Melena, Hematochezia, Other Genitourinary: No Dysuria, No Frequency, No Incontinence, No Hematuria, No Retention, No Other Musculoskeletal: back pain; No: other, neck pain, shoulder pain, arm pain, hand pain, leg pain, foot pain Skin: No: Rash, Lesions, Jaundice, Bruising, Other Neurological: Weakness; No: Numbness, Incoordination, Change in speech, Confusion, Seizures, Other Allergies: Coded Allergies: Prune (Verified Allergy, Severe, ALOC, 09/22/23) Spoke to pt at bedside to confirm allergies. Pt stated when she was given prune juice she instantly felt dizzy and bpm solution architect to her having a coma. Penicillins (Verified Adverse Reaction, Intermediate, HIVES ALL OVER BODY, 09/22/23) Spoke with pt at bedside 09-22-23 to confirm penicillin allergy. Patient stated that allergic reaction occurred when she was a teenager. She doesn't recall having any swelling of the lips of shortness of breath. However, she experienced red hives all over her body. Since then she has only had Clindamycin PO for a dental procedure as well as Ertapenem in 2019 at [facility] for ESBL in her urine. Sulfa Antibiotics (Verified Adverse Reaction, Intermediate, ITCHINESS OF BODY, 09/22/23) Spoke to pt at bedside to confirm Sulfa allergy. Pt stated that when she had a Sulfa abx a few years ago she experiened itchiness all over her body Uncoded Allergies: MYCINS (Allergy, Unknown, 11/16/17) Medications Current Medications Medications Dose Ordered Sig/Angelo Route Start Time Stop Time Status Last Admin Dose Admin Sodium Chloride 1,000 ml @ 60 mls/hr [id number] IV 12/01/24 16:00 12/01/24 17:05 60 MLS/HR Acetaminophen/ Hydrocodone Bitart 1 tab Q4HP PRN PO 12/01/24 16:00 12/02/24 01:19 1 TAB Ondansetron HCl 4 mg Q4HP PRN IV 12/01/24 16:00 12/01/24 22:52 4 MG Enoxaparin Sodium 40 mg DAILY SC 12/02/24 10:00 Acetaminophen 650 mg Q6HP PRN PO 12/01/24 16:00 12/01/24 17:10 650 MG Morphine Sulfate 2 mg Q4HPRN PRN IV 12/01/24 16:00 12/01/24 22:53 2 MG Nitroglycerin 0.4 mg Q5MINP PRN SL 12/01/24 16:00 Morphine Sulfate 2 mg Q30M PRN IV 12/01/24 16:00 Methylprednisolone Sodium Succinate 40 mg Q8HR IV 12/01/24 22:00 12/01/24 22:52 40 MG Exam Vital Signs Vital Signs Date Time Temp Pulse Resp B/P (MAP) Pulse Ox O2 Delivery O2 Flow Rate FiO2 12/02/24 00:00 59 12/01/24 23:23 17 116/57 12/01/24 22:00 97 12/01/24 20:00 98.6 98.6 12/01/24 19:30 Nasal Cannula* 2 28 General Appearance: Alert, Oriented X3, moderate distress HEENT: Atraumatic, PERRLA, EOMI Respiratory: Clear to auscultation, Normal air movement Cardiovascular: Regular rate, Normal S1, Normal S2 Abdominal: Normal bowel sounds, Soft, No tenderness Extremities: Normal pulses, Other (Mild edema. Limited ROM) Skin: No rashes Neuro: Normal speech Psych/Mental Status: Mental status NL, Mood NL Labs/Xrays Labs Test 12/01/24 09:55 12/01/24 08:02 Range/Units White Blood Count 9.1 4.4-10.8 10^3/uL Red Blood Count 4.26 4.0-5.20 10^6/uL Hemoglobin 11.6 L 12.2-16.2 g/dL Hematocrit 36.4 36.0-46.0 % Mean Corpuscular Volume 85.4 80.0-100.0 fL Mean Corpuscular Hemoglobin 27.3 L 28.0-32.0 pg Mean Corpuscular Hemoglobin Concent 32.0 32.0-36.0 g/dL Red Cell Distribution Width 16.6 H 11.8-14.3 % Platelet Count 203 140-450 10^3/uL Mean Platelet Volume 9.1 6.9-10.8 fL Neutrophils (%) (Auto) 75.6 37.0-80.0 % Lymphocytes (%) (Auto) 13.7 10.0-50.0 % Monocytes (%) (Auto) 10.1 0.0-12.0 % Eosinophils (%) (Auto) 0.3 0.0-7.0 % Basophils (%) (Auto) 0.3 0.0-2.0 % Neutrophils # (Auto) 6.9 1.6-8.6 10 ^3/uL Lymphocytes # (Auto) 1.3 0.4-5.4 10 ^3/uL Monocytes # (Auto) 0.9 0-1.3 10 ^3/uL Eosinophils # (Auto) 0 0-0.8 10 ^3/uL Basophils # (Auto) 0 0-0.2 10 ^3/uL Nucleated Red Blood Cells 0.1 % Urine Color Yellow Yellow Urine Clarity Turbid H Clear Urine pH 7.0 5.0-9.0 Urine Specific [place] 1.018 1.001-1.035 Urine Protein Negative Negative Urine Ketones Negative Negative Urine Blood Negative Negative /uL Urine Nitrite Negative Negative Urine Bilirubin Negative Negative Urine Urobilinogen Normal Negative mg/dL Urine Leukocyte Esterase Negative Negative /uL Urine RBC <1 0 - 4 /hpf Urine Microscopic WBC 3 0-5 /HPF Urine Squamous Epithelial Cells None seen <5 /hpf Urine Amorphous Crystals Few None Seen /hpf Urine Bacteria Few H None Seen /hpf Urine Glucose Normal Normal mg/dL Assessment/Plan Assessment/Plan Exacerbation of chronic lumbar back pain R/o L spine injury Plan Admit to telemetry Spinal surgeon consult MRI L Spine IV steroids As needed analgesia Physical therapy evaluation GI ppx protonix / DVT ppx lovenox Plan discussed with: Patient Date of Service: Dec 02, 2024 Billing Provider: TALISHA ESCOTO MD Common Visit Codes: NOT BILLABLE TALISHA ESCOTO MD 12/02/24 1637: Review of Systems Allergies: Coded Allergies: Prune (Verified Allergy, Severe, ALOC, 09/22/23) Spoke to pt at bedside to confirm allergies. Pt stated when she was given prune juice she instantly felt dizzy and bpm solution architect to her having a coma. Penicillins (Verified Adverse Reaction, Intermediate, HIVES ALL OVER BODY, 09/22/23) Spoke with pt at bedside 09-22-23 to confirm penicillin allergy. Patient stated that allergic reaction occurred when she was a teenager. She doesn't recall having any swelling of the lips of shortness of breath. However, she experienced red hives all over her body. Since then she has only had Clindamycin PO for a dental procedure as well as Ertapenem in 2019 at [facility] for ESBL in her urine. Sulfa Antibiotics (Verified Adverse Reaction, Intermediate, ITCHINESS OF BODY, 09/22/23) Spoke to pt at bedside to confirm Sulfa allergy. Pt stated that when she had a Sulfa abx a few years ago she experiened itchiness all over her body Uncoded Allergies: MYCINS (Allergy, Unknown, 11/16/17) Additional Comments Additional Comments Additional Comments Patient was seen and evaluated by me. I agree with the assessment and plan as outlined by my nurse practitioner. LISA RAYMUNDO NP Dec 02, 2024 03:19 TALISHA ESCOTO MD Dec 02, 2024 16:37
[2024-12-02 05:58] LABS: Basophils # (auto) 0 10 ^3/uL (0-0.2); Basophils % (auto) 0.1 % (0.0-2.0); Eosinophils # (auto) 0 10 ^3/uL (0-0.8); Hematocrit 38.3 % (36.0-46.0); Hemoglobin 12.4 g/dL (12.2-16.2); Lymphocytes # (auto) 0.9 10 ^3/uL (0.4-5.4); Lymphocytes % (auto) 11.1 % (10.0-50.0); Mean Corpuscular Hemoglobin 28.2 pg (28.0-32.0); Mean Corpuscular Hgb Conc. 32.3 g/dL (32.0-36.0); Mean Corpuscular Volume 87.3 fL (80.0-100.0); Monocytes # (auto) 0.6 10 ^3/uL (0-1.3); Monocytes % (auto) 6.9 % (0.0-12.0); Neutrophils # (auto) 6.9 10 ^3/uL (1.6-8.6); Neutrophils % (auto) 81.9 % (37.0-80.0); Platelet Count (auto) 205 10^3/uL (140-450); Red Blood Cells 4.39 10^6/uL (4.0-5.20); Red Cell Distribution Width 16.9 % (11.8-14.3); White Blood Cell 8.4 10^3/uL (4.4-10.8)
[2024-12-02 06:17] LABS: Alanine Aminotransferase 12 U/L (7-40); Albumin 4.1 g/dL (3.2-4.8); Alkaline Phosphatase 90 U/L (46-116); Anion Gap 10 (5-15); Bilirubin, Total 0.4 mg/dL (0.2-1.0); Blood Urea Nitrogen 14 mg/dL (9-23); Calcium 9.7 mg/dL (8.7-10.4); Carbon Dioxide 20 mmol/L (20-31); Potassium 4.3 mmol/L (3.5-5.1); Sodium 139 mmol/L (136-145); Total Protein 6.8 g/dL (5.7-8.2)
[2024-12-02 06:22] LABS: Aspartate Aminotransferase < 8 U/L (13-40); Chloride 109 mmol/L (98-107); Glucose 125 mg/dL (74-106)
[2024-12-02 08:30] VITALS: PULSE 57; RESP 13; O2SAT 98
[2024-12-02] MEDS: ENOXAPARIN SOD 40 MG/0.4 ML SYRINGE SC SCH (10:39)
--- NOTE | 2024-12-02 13:02 | DVH ---
PROCEDURE: MRI LUMBAR SPINE WO CONTRAST INDICATION: Acute on chronic lower back pain Exam Date: 12/02/2024 12:03 PM COMPARISON: None available. TECHNIQUE: MRI lumbar spine without intravenous contrast. FINDINGS: No vertebral body fractures are identified about the lumbar spine. There are thoracolumbar and lumbos acral transitional vertebrae. The lumbosacral transitional vertebrae will be considered L5 for the pu rposes of counting. The conus terminates at L1. L1-L2: There is disc desiccation with loss of disc height. Possible vacuum phenomenon in the disc. T here is sclerosis and edema of the adjacent endplates. There are Schmorl's nodes of the adjacent end plates. There is a circumferential broad disc bulge with endplate hypertrophy, most prominent in the foraminal regions, right greater than left. There is bilateral facet and ligamentum flavum hypertro phy. No significant spinal canal stenosis. There is moderate to severe bilateral neural foraminal isabelle nosis. L2-L3: There are postoperative changes laminectomy and partial bilateral facetectomy metallic fixatio n hardware. There is disc desiccation with loss of disc height. Probable vacuum phenomenon in the di sc. There are Schmorl's nodes in the adjacent endplates. There are mild Modic type 2 changes in the a djacent endplates. There is a circumferential broad disc bulge with endplate hypertrophy, most promin ent in the right pre foraminal region measuring 7.2 mm AP in that area (image 8, series 5). There is bilateral facet hypertrophy. No significant spinal canal stenosis. There is moderate right and bassem re left neural foraminal stenosis. L3-L4: There are postoperative changes laminectomy and partial bilateral facetectomy without presence of metallic fixation hardware. There is disc desiccation with loss of disc height, greater on the ri ght. There is fluid intensity in the right side of the disc. There is a circumferential broad disc bu lge with endplate hypertrophy, most prominent in the right foraminal and lateral regions. There is b ilateral facet hypertrophy. No significant spinal canal stenosis. There is moderate to severe right and no significant left neural foraminal stenosis. L4-L5: There are postoperative changes of laminectomy and bilateral partial facetectomy, without pres ence of metallic fixation hardware. There is grade 1 anterolisthesis L4 on L5 measuring 8 mm AP, with right L5 spondylolysis. There may be healed left L5 spondylolysis, versus appearance due to posterio r element bone grafting. There is disc desiccation with loss of disc height. There is a circumferenti al broad disc bulge with endplate hypertrophy, most prominent in the right foraminal region. No sign ificant spinal canal stenosis. There is moderate to severe right and mild left neural foraminal steno sis. L5-S1: There are postoperative changes of laminectomy and bilateral partial facetectomy, without pres ence of metallic fixation hardware. There is disc desiccation with loss of disc height. There is a mi ld circumferential broad disc bulge with endplate hypertrophy. No significant spinal canal stenosis. There is mild bilateral neural foraminal stenosis. IMPRESSION: 1. No vertebral body fracture of the lumbar spine. 2. Thoracolumbar and lumbosacral transitional vertebrae. 3. Postoperative changes laminectomy and bilateral partial facetectomy L3-S1, without presence of met allic fixation hardware. 4. Degenerative disc disease and facet arthropathy with multilevel significant neural foraminal steno sis including L1-L2 bilaterally, L2-L3 bilaterally, L3-L4 on the right, L4-L5 on the right. These fi ndings May correspond to lower extremity radicular symptoms in the bilateral L1, bilateral L2, right L3, and right L4 nerve root distributions. 5. Grade 1 anterolisthesis L4 on L5 with right L5 spondylolysis.
[2024-12-02 19:41] VITALS: PULSE 73; RESP 13; O2SAT 95
--- NOTE | 2024-12-02 19:46 | DVHINCON2 ---
Consultation - Spinal Surgery Date Seen: Dec 03, 2024 Referring Physician Referring Physician Attending Doctor: Nathan Ramirez MD Reason for Consultation Reason for Visit: Back pain History of Present Illness History of Present Illness History of Present Illness 74-year-old female with past medical history of depression, anxiety, asthma, bilateral knee arthroplasty, left hip arthroplasty presents with complaints of sharp debilitating back pain x3 days. Patient endorsed a slip and twist incident a triggered muscle spasms. Endorsed she is immobile. At this time is unable to move her feet or legs. No complaints of falls, head injuries or LOC No additional complaints or modifying factors at this time Past Medical/Surgical History Past Medical/Surgical History Pulmonary: Asthma Psych: Anxiety, Depression Family and Social History Family and Social History Smoke: No ALCOHOL: none Drugs: None Lives: with Family Allergies and medications Allergies: Coded Allergies: Prune (Verified Allergy, Severe, ALOC, 09/22/23) Spoke to pt at bedside to confirm allergies. Pt stated when she was given prune juice she instantly felt dizzy and quality assurance supervisor trim to her having a coma. Penicillins (Verified Adverse Reaction, Intermediate, HIVES ALL OVER BODY, 09/22/23) Spoke with pt at bedside 09-22-23 to confirm penicillin allergy. Patient stated that allergic reaction occurred when she was a teenager. She doesn't recall having any swelling of the lips of shortness of breath. However, she experienced red hives all over her body. 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 Sulfa Antibiotics (Verified Adverse Reaction, Intermediate, ITCHINESS OF BODY, 09/22/23) Spoke to pt at bedside to confirm Sulfa allergy. Pt stated that when she had a Sulfa abx a few years ago she experiened itchiness all over her body Uncoded Allergies: MYCINS (Allergy, Unknown, 11/16/17) Home Meds Reported Medications Levothyroxine Sodium (Levothyroxine Sodium) 200 Mcg Tab 10/31/19 Oxybutynin Chloride (Ditropan Xl) 5 Mg Tab 10/31/19 Tizanidine Hydrochloride (Tizanidine Hcl) 4 Mg Tab 10/31/19 Topiramate (Topiramate) 100 Mg Tab 3/12/20 Zolpidem Tartrate (Zolpidem Tartrate) 5 Mg Tab 10/31/19 Bupropion HCl (Bupropion Hydrochloride) 100 Mg Tab 10/31/19 Fluoxetine Hcl (Fluoxetine Hcl) 40 Mg Cap 10/31/19 Ondansetron HCl (Ondansetron Hydrochloride) 4 Mg Tab 10/31/19 Famotidine (Famotidine) 20 Mg Tab 10/31/19 Dextroamphetamine Sulfate (Dextroamphetamine Sulfate) 15 Mg Cap 10/31/19 Fluoxetine Hcl (Fluoxetine Hcl) 20 Mg Cap, 40 MG PO DAILY for 30 Days, MG 10/17/19 Oxybutynin Chloride (Ditropan Xl) 5 Mg Tab, 5 MG PO DAILY, TAB 10/17/19 Bupropion Hcl (Bupropion Hcl) 100 Mg Tab, 150 MG PO Q8HR for 30 Days, MG 10/17/19 Multiple Vitamin (Multivitamins) Tab, 1 TAB PO DAILY, #90 TAB 3 Refills 11/16/17 Acyclovir (ZOVIRAX TABLET) 400 Mg Tb, 1 TAB PO DAILY, #60 TAB 3 Refills 11/16/17 Levothyroxine Sodium (Levothyroxine Sodium) 25 Mcg Tab, 25 MCG PO QAM, MCG 11/16/17 Tizanidine Hydrochloride (Zanaflex) 4 Mg Tab, 1 TAB PO BID, #60 TAB 11/16/17 Cyanocobalamin (B-12 Compliance Injection) 1,000 Mcg/Ml Kit, 1000 MCG IJ QWEEKLY, KIT 11/16/17 Modafinil (MODAFINIL) 200 Mg Tab, 200 MG PO for NARCOLEPSY, TAB 04/11/17 Dextroamphetamine Sulfate (Dextroamphetamine Sulfate) 10 Mg Tab, 30 MG PO DAILY, TAB 04/11/17 Review of systems Review of Systems: HEENT:Normal, CVS:Normal, RESPIRATORY:Normal, GI:Normal, :Normal, MSK:Abnormal (sharp debilitating back pain x3 days. Patient endorsed a slip and twist incident a triggered muscle spasms. Endorsed she is immobile. At this time is unable to move her feet or leg), NEURO:Abnormal (sharp debilitating back pain x3 days. Patient endorsed a slip and twist incident a triggered muscle spasms. Endorsed she is immobile. At this time is unable to m ove her feet or leg) Examination Vital signs Imagining: PROCEDURE: MRI LUMBAR SPINE WO CONTRAST INDICATION: Acute on chronic lower back pain Exam Date: 12/02/2024 12:03 PM COMPARISON: None available. TECHNIQUE: MRI lumbar spine without intravenous contrast. FINDINGS: No vertebral body fractures are identified about the lumbar spine. There are thoracolumbar and lumbosacral transitional vertebrae. The lumbosacral transitional vertebrae will be considered L5 for the purposes of counting. The conus terminates at L1. L1-L2: There is disc desiccation with loss of disc height. Possible vacuum phenomenon in the disc. There is sclerosis and edema of the adjacent endplates. There are Schmorl's nodes of the adjacent endplates. There is a circumferential broad disc bulge with endplate hypertrophy, most prominent in the foraminal regions, right greater than left. There is bilateral facet and ligamentum flavum hypertrophy. No significant spinal canal stenosis. There is moderate to severe bilateral neural foraminal stenosis. L2-L3: There are postoperative changes laminectomy and partial bilateral facetectomy metallic fixation hardware. There is disc desiccation with loss of disc height. Probable vacuum phenomenon in the disc. There are Schmorl's nodes in the adjacent endplates. There are mild Modic type 2 changes in the adjacent endplates. There is a circumferential broad disc bulge with endplate hypertrophy, most prominent in the right pre foraminal region measuring 7.2 mm AP in that area (image 8, series 5). There is bilateral facet hypertrophy. No significant spinal canal stenosis. There is moderate right and severe left neural foraminal stenosis. L3-L4: There are postoperative changes laminectomy and partial bilateral facetectomy without presence of metallic fixation hardware. There is disc desiccation with loss of disc height, greater on the right. There is fluid intensity in the right side of the disc. There is a circumferential broad disc bulge with endplate hypertrophy, most prominent in the right foraminal and lateral regions. There is bilateral facet hypertrophy. No significant spinal canal stenosis. There is moderate to severe right and no significant left neural foraminal stenosis. L4-L5: There are postoperative changes of laminectomy and bilateral partial facetectomy, without presence of metallic fixation hardware. There is grade 1 anterolisthesis L4 on L5 measuring 8 mm AP, with right L5 spondylolysis. There may be healed left L5 spondylolysis, versus appearance due to posterior element bone grafting. There is disc desiccation with loss of disc height. There is a circumferential broad disc bulge with endplate hypertrophy, most prominent in the right foraminal region. No significant spinal canal stenosis. There is moderate to severe right and mild left neural foraminal stenosis. L5-S1: There are postoperative changes of laminectomy and bilateral partial facetectomy, without presence of metallic fixation hardware. There is disc desiccation with loss of disc height. There is a mild circumferential broad disc bulge with endplate hypertrophy. No significant spinal canal stenosis. There is mild bilateral neural foraminal stenosis. IMPRESSION: 1. No vertebral body fracture of the lumbar spine. 2. Thoracolumbar and lumbosacral transitional vertebrae. 3. Postoperative changes laminectomy and bilateral partial facetectomy L3-S1, without presence of metallic fixation hardware. 4. Degenerative disc disease and facet arthropathy with multilevel significant neural foraminal stenosis including L1-L2 bilaterally, L2-L3 bilaterally, L3-L4 on the right, L4-L5 on the right. These findings May correspond to lower extremity radicular symptoms in the bilateral L1, bilateral L2, right L3, and right L4 nerve root distributions. 5. Grade 1 anterolisthesis L4 on L5 with right L5 spondylolysis. Vital Signs Date Time Temp Pulse Resp B/P (MAP) Pulse Ox O2 Delivery O2 Flow Rate FiO2 12/02/24 18:10 66 16 106/42 (63) 90 12/02/24 08:30 Nasal Cannula* 2 28 12/01/24 20:00 98.6 98.6 Medications Current Medications Medications (Trade) Dose Ordered Sig/Angelo Route PRN Reason Start Time Stop Time Status Last Admin Enoxaparin Sodium (Lovenox) 40 mg DAILY SC 12/02/24 10:00 12/02/24 10:39 Methylprednisolone Sodium Succinate (Solu Medrol) 40 mg Q8HR IV 12/01/24 22:00 12/02/24 14:13 Laboratory Labs Test 12/02/24 05:24 12/01/24 08:02 Range/Units White Blood Count 8.4 4.4-10.8 10^3/uL Red Blood Count 4.39 4.0-5.20 10^6/uL Hemoglobin 12.4 12.2-16.2 g/dL Hematocrit 38.3 36.0-46.0 % Mean Corpuscular Volume 87.3 80.0-100.0 fL Mean Corpuscular Hemoglobin 28.2 28.0-32.0 pg Mean Corpuscular Hemoglobin Concent 32.3 32.0-36.0 g/dL Red Cell Distribution Width 16.9 H 11.8-14.3 % Platelet Count 205 140-450 10^3/uL Mean Platelet Volume 8.9 6.9-10.8 fL Neutrophils (%) (Auto) 81.9 H 37.0-80.0 % Lymphocytes (%) (Auto) 11.1 10.0-50.0 % Monocytes (%) (Auto) 6.9 0.0-12.0 % Eosinophils (%) (Auto) 0.0 0.0-7.0 % Basophils (%) (Auto) 0.1 0.0-2.0 % Neutrophils # (Auto) 6.9 1.6-8.6 10 ^3/uL Lymphocytes # (Auto) 0.9 0.4-5.4 10 ^3/uL Monocytes # (Auto) 0.6 0-1.3 10 ^3/uL Eosinophils # (Auto) 0 0-0.8 10 ^3/uL Basophils # (Auto) 0 0-0.2 10 ^3/uL Nucleated Red Blood Cells 0.0 % Sodium Level 139 136-145 mmol/L Potassium Level 4.3 3.5-5.1 mmol/L Chloride Level 109 H 98-107 mmol/L Carbon Dioxide Level 20 20-31 mmol/L Anion Gap 10 5-15 Blood Urea Nitrogen 14 9-23 mg/dL Creatinine 0.61 0.550-1.02 mg/dL Glomerular Filtration Rate Calc 93 >90 mL/min BUN/Creatinine Ratio 23.0 H 10.0-20.0 Serum Glucose 125 H 74-106 mg/dL Calcium Level 9.7 8.7-10.4 mg/dL Total Bilirubin 0.4 0.2-1.0 mg/dL Aspartate Amino Transferase (AST) < 8 L 13-40 U/L Alanine Aminotransferase (ALT) 12 7-40 U/L Alkaline Phosphatase 90 46-116 U/L Total Protein 6.8 5.7-8.2 g/dL Albumin 4.1 3.2-4.8 g/dL Urine Color Yellow Yellow Urine Clarity Turbid H Clear Urine pH 7.0 5.0-9.0 Urine Specific [place] 1.018 1.001-1.035 Urine Protein Negative Negative Urine Ketones Negative Negative Urine Blood Negative Negative /uL Urine Nitrite Negative Negative Urine Bilirubin Negative Negative Urine Urobilinogen Normal Negative mg/dL Urine Leukocyte Esterase Negative Negative /uL Urine RBC <1 0 - 4 /hpf Urine Microscopic WBC 3 0-5 /HPF Urine Squamous Epithelial Cells None seen <5 /hpf Urine Amorphous Crystals Few None Seen /hpf Urine Bacteria Few H None Seen /hpf Urine Glucose Normal Normal mg/dL Examination: GENERAL:Normal, HEENT:Normal, NECK:Normal, LUNGS:Normal, ABDOMEN:Normal, MSK:Abnormal (patient is unable to flex or extend bilateral knees due to prior injury prior surgery. ), SKIN:Normal, NEURO:Abnormal (hypesensitive ) Problem List/Assessment/Plan Problems: (1) Lumbar radiculopathy (2) DDD (degenerative disc disease), lumbar Assessment and Plan 1. Thoracolumbar and lumbosacral transitional vertebrae. 2. Postoperative changes laminectomy and bilateral partial facetectomy L3-S1, without presence of metallic fixation hardware. 3. Degenerative disc disease and facet arthropathy with multilevel significant neural foraminal stenosis including L1-L2 bilaterally, L2-L3 bilaterally, L3-L4 on the right, L4-L5 on the right. These findings May correspond to lower extremity radicular symptoms in the bilateral L1, bilateral L2, right L3, and right L4 nerve root distributions. 4. Grade 1 anterolisthesis L4 on L5 with right L5 spondylolysis. Continue supportive care per admitting team discretion Goal is to get patient pain and muscle spasms under control to point she is comfortable to go home and have home PT if possible. Afterwards she will follow up as a out patient is she continues to have discomfort. Timing is not good at this time per the patient to consider surgery and she would like PT at home. No barriers to discharge from a spine perspective recommend to keep pt on TID Flexeril 10 mg PO Call with questions Geeta Zheng [facility] Orthopaedic Spine Surgery nurse practitioner For Dr Amy Rothman Patient was examined, chart reviewed, labs evaluated, and diagnostic studies and findings analyzed. Case was discussed with Dr. Lorne Rothman who formulated the plan of care. This medical document was created using an electronic medical record system with [employer] dictation system. Although this document has been carefully reviewed, there might still be some phonetic and typographical errors. These areas are purely typographical due to imperfections of the software programs, and do not reflect any compromise in the patient's medical care. Plan discussed with Plan discussed with: Patient, Other NAMITA ZHENG NP Dec 02, 2024 19:46
[2024-12-02] MEDS: CYCLOBENZAPRINE HCL 10 MG TAB PO SCH (22:24)
[2024-12-02 23:10] VITALS: BP 152/55; PULSE 65; RESP 16; TEMP 99; O2SAT 97
[2024-12-02 23:59] VITALS: PULSE 69; RESP 18; O2SAT 97
[2024-12-03] VITALS (8 sets, daily range): BP systolic 92–138; BP diastolic 37–61; PULSE 55–74; RESP 16–17; TEMP 97.6–98.7; O2SAT 92–96
[2024-12-03 17:14] LABS: Urine Bacteria FEW /hpf (None Seen); Urine Blood 3+ /uL (Negative); Urine Clarity Ex.Turbid (Clear); Urine Color Colorless (Yellow); Urine Mucus FEW (None Seen); Urine Protein, UAD 1+ (Negative); Urine Specific Gravity 1.015 (1.001-1.035); Urine Squamous Epithelial Cell FEW /hpf (<5); Urine Urobilinogen Normal (Negative); Urine WBC < 1 /HPF (0-5); Urine pH 8.5 (5.0-9.0)
--- NOTE | 2024-12-03 18:38 | DVHPN2 ---
Subjective Patient was complaining of abdominal pain on the left side and abdominal lump in the lower part of the abdomen on the lateral surface. Reviewed: Care Plan Changes from previous H/P or p: No Changes Eyes: No Pain, No Vision change, No Conjunctivae inflammation, No Eyelid inflammation, No Other, No Redness ENT: No Ear pain, No Ear discharge, No Nose pain, No Nose discharge, No Nose congestion, No Mouth pain, No Mouth swelling, No Throat pain, No Throat swelling, No Other Cardiovascular: No Chest Pain, No Palpitations, No Orthopnea, No Paroxysmal Noc. Dyspnea, No Edema, No Lt Headedness, No Other Respiratory: No Cough, No Dry, No Shortness of breath, No SOB with excertion, No Wheezing, No Hemoptysis, No Pleuritic Pain, No Sputum, No Other Gastrointestinal: No Nausea, No Vomiting, No Abdominal Pain, No Diarrhea, No Constipation, No Melena, No Hematochezia, No Other Genitourinary: No Dysuria, No Frequency, No Incontinence, No Hematuria, No Retention, No Other Musculoskeletal: No other, No neck pain, No shoulder pain, No arm pain; back pain; No hand pain, No leg pain, No foot pain Skin: No Rash, No Lesions, No Jaundice, No Bruising, No Other Objective Vitals Vital Signs Date Time Temp Pulse Resp B/P (MAP) Pulse Ox O2 Delivery O2 Flow Rate FiO2 12/03/24 17:21 64 16 110/61 12/03/24 16:50 98.7 94 98.7 12/03/24 08:00 Room Air* 0 21 Intake/Output Intake and Output 12/03/24 07:00 Intake Total 1520 ml Output Total 1600 ml Balance -80 ml Intake Oral 800 ml IV Total 720 ml Output Urine Total 1600 ml Exam HEENT pupils are reactive Neck is supple CV is S1-S2 regular rate and rhythm Respiratory diminished breath sound bases GI posterior bowel sound , soft mildly tender in the left sided abdomen, positive guarding no rigidity 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 Medications Current Medications Medications Dose Ordered Sig/Angelo Route Start Time Stop Time Status Last Admin Dose Admin Sodium Chloride 1,000 ml @ 60 mls/hr [id number] IV 12/01/24 16:00 12/03/24 01:20 60 MLS/HR Acetaminophen/ Hydrocodone Bitart 1 tab Q4HP PRN PO 12/01/24 16:00 12/03/24 14:50 1 TAB Ondansetron HCl 4 mg Q4HP PRN IV 12/01/24 16:00 12/02/24 06:53 4 MG Enoxaparin Sodium 40 mg DAILY SC 12/02/24 10:00 12/03/24 10:00 40 MG Acetaminophen 650 mg Q6HP PRN PO 12/01/24 16:00 12/01/24 17:10 650 MG Morphine Sulfate 2 mg Q4HPRN PRN IV 12/01/24 16:00 12/03/24 16:51 2 MG Nitroglycerin 0.4 mg Q5MINP PRN SL 12/01/24 16:00 Morphine Sulfate 2 mg Q30M PRN IV 12/01/24 16:00 Methylprednisolone Sodium Succinate 40 mg Q8HR IV 12/01/24 22:00 12/02/24 22:24 40 MG Cyclobenzaprine HCl 10 mg TID PO 12/02/24 20:00 12/03/24 14:48 10 MG Levofloxacin 500 mg DAILY PO 12/04/24 10:00 UNV Laboratory Results Laboratory Tests 12/02/24 05:24 Urinalysis Test 12/01/24 08:02 12/03/24 16:59 Urine Amorphous Crystals Few /hpf (None Seen) Urine Color Colorless (Yellow) Urine Clarity Ex.turbid (Clear) Urine pH 8.5 (5.0-9.0) Urine Specific [place] 1.015 (1.001-1.035) Urine Protein 1+ (Negative) H Urine Ketones Negative (Negative) Urine Blood 3+ /uL (Negative) H Urine Nitrite 1+ (Negative) H Urine Bilirubin Negative (Negative) Urine Urobilinogen Normal mg/dL (Negative) Urine Leukocyte Esterase 3+ /uL (Negative) Urine RBC 4 /hpf (0 - 4) Urine Microscopic WBC < 1 /HPF (0-5) Urine Squamous Epithelial Cells Few /hpf (<5) Urine Bacteria Few /hpf (None Seen) H Urine Mucus Few (None Seen) Urine Glucose Normal mg/dL (Normal) Assessment/Plan Assessment/Plan 74-year-old female with a known history of depression, anxiety, asthma, bilateral knee arthroplasty, left hip arthroplasty, previous multiple spine surgery presented to the hospital with worsening pain found to have 1. Acute on chronic lumbar back pain 2. Urinary tract infection 3. History of anxiety and depression 4. Left-sided abdominal pain -CT abdomen and pelvis with p.o. contrast, continue pain meds, antibiotics for UTI, follow up urine culture -patient refused to go to any senior care facility. With manage the pain one more day and follow up tomorrow regarding discharge plan. Plan discussed with: Patient My Orders Orders - TALISHA ESCOTO MD Procedure Category Date Status Time Ct Abd Pelvis W CT 12/03/24 Logged Con-Oral & Iv 16:33 Levofloxacin Tablet PHA 12/03/24 Logged (Levaquin Tablet) 18:45 Levofloxacin Tablet PHA 12/04/24 Logged (Levaquin Tablet) 10:00 Electrocardigram EKG 12/03/24 Logged 18:32 Electrocardigram EKG 12/03/24 Logged 19:32 Electrocardigram EKG 12/03/24 Logged 21:32 Date of Service: Dec 03, 2024 Billing Provider: TLAISHA ESCOTO MD Common Visit Codes: NOT BILLABLE TALISHA ESCOTO MD Dec 03, 2024 18:38
[2024-12-03] MEDS: levoFLOXacin 500 MG TAB PO ONE (18:45)
[2024-12-04] VITALS (8 sets, daily range): BP systolic 102–131; BP diastolic 54–62; PULSE 61–86; RESP 16–18; TEMP 97.8–98.7; O2SAT 94–97
[2024-12-04] MEDS ORDERED: GASTROGRAFIN 30 ML SOL ONE (07:26)
[2024-12-04] MEDS: levoFLOXacin 500 MG TAB PO SCH (10:17)
[2024-12-04] MEDS ORDERED: IOHEXOL 300 MG/ML 100ML BOTTLE IJ ONE (10:35)
--- NOTE | 2024-12-04 11:49 | DVH ---
CLINICAL INFORMATION: Abdominal pain. TECHNIQUE: Axial CT images of the abdomen and pelvis were obtained after the uneventful administrati on of 100 mL Omnipaque 300 IV contrast. 1 L of oral Gastroview contrast was also administered prior t o the examination. Coronal and sagittal reformatted images were obtained, reviewed, and stored. All C T scans at this medical facility are performed using dose modulation techniques as appropriate to a p erformed exam including the following: Automated exposure control was utilized; adjustment of the MA and/or KV according to patient size; and use of iterative reconstruction technique. CTDIvol = 14.49 mGy DLP = 713.47 mGy-cm COMPARISON: None FINDINGS: Lung bases: Lung bases are clear. Liver: Liver is enlarged, measuring up to 18.3 cm in craniocaudal dimension at the midclavicular shailesh e. Biliary: Moderately distended gallbladder. No calcified gallstones visualized. Spleen: Unremarkable. Pancreas: Unremarkable. No inflammatory changes, ductal dilatation, or mass identified. Adrenal glands: Unremarkable. No mass. Kidneys: Bilateral parapelvic cysts. 3.5 mm nonobstructing calculus in the lower pole of the left kid finn. Aorta/Vascular: No aneurysm or significant calcification. Retroperitoneum: No mass or lymphadenopathy. Bowel/mesentery: Postsurgical changes of the proximal stomach. No small bowel obstruction. Appendix i s not visualized. Moderate to large amount of stool throughout the colon. Multiple surgical clips are seen in the right hemipelvis. Pelvic organs: Uterus is surgically absent. Bladder: Bladder is completely collapsed around a Reese catheter balloon Abdominal wall: No mass or hernia. Bones: No acute fracture or focal intraosseous lesion. IMPRESSION: 1. No small bowel obstruction. 2. Moderate to large amount of stool in the colon. 3. Hepatomegaly. 4. Moderately distended gallbladder. No calcified gallstones visualized. Correlate with clinical find ings. 5. Additional findings as described above
--- NOTE | 2024-12-04 16:30 | DVHDS2 ---
Discharge Summary Date of Admission Dec 01, 2024 at 15:51 Date of Discharge: Dec 04, 2024 Labs/Diagnostic Data: Laboratory Results Test 12/03/24 16:59 12/02/24 05:24 12/01/24 08:02 Urine Color Colorless (Yellow) Urine Clarity Ex.turbid (Clear) Urine pH 8.5 (5.0-9.0) Urine Specific Esko 1.015 (1.001-1.035) Urine Protein 1+ (Negative) Urine Ketones Negative (Negative) Urine Blood 3+ /uL (Negative) Urine Nitrite 1+ (Negative) Urine Bilirubin Negative (Negative) Urine Urobilinogen Normal mg/dL (Negative) Urine Leukocyte Esterase 3+ /uL (Negative) Urine RBC 4 /hpf (0 - 4) Urine Microscopic WBC < 1 /HPF (0-5) Urine Squamous Epithelial Cells Few /hpf (<5) Urine Bacteria Few /hpf (None Seen) Urine Mucus Few (None Seen) Urine Glucose Normal mg/dL (Normal) White Blood Count 8.4 10^3/uL (4.4-10.8) Red Blood Count 4.39 10^6/uL (4.0-5.20) Hemoglobin 12.4 g/dL (12.2-16.2) Hematocrit 38.3 % (36.0-46.0) Mean Corpuscular Volume 87.3 fL (80.0-100.0) Mean Corpuscular Hemoglobin 28.2 pg (28.0-32.0) Mean Corpuscular Hemoglobin Concent 32.3 g/dL (32.0-36.0) Red Cell Distribution Width 16.9 % (11.8-14.3) Platelet Count 205 10^3/uL (140-450) Mean Platelet Volume 8.9 fL (6.9-10.8) Neutrophils (%) (Auto) 81.9 % (37.0-80.0) Lymphocytes (%) (Auto) 11.1 % (10.0-50.0) Monocytes (%) (Auto) 6.9 % (0.0-12.0) Eosinophils (%) (Auto) 0.0 % (0.0-7.0) Basophils (%) (Auto) 0.1 % (0.0-2.0) Neutrophils # (Auto) 6.9 10 ^3/uL (1.6-8.6) Lymphocytes # (Auto) 0.9 10 ^3/uL (0.4-5.4) Monocytes # (Auto) 0.6 10 ^3/uL (0-1.3) Eosinophils # (Auto) 0 10 ^3/uL (0-0.8) Basophils # (Auto) 0 10 ^3/uL (0-0.2) Nucleated Red Blood Cells 0.0 % Sodium Level 139 mmol/L (136-145) Potassium Level 4.3 mmol/L (3.5-5.1) Chloride Level 109 mmol/L (98-107) Carbon Dioxide Level 20 mmol/L (20-31) Anion Gap 10 (5-15) Blood Urea Nitrogen 14 mg/dL (9-23) Creatinine 0.61 mg/dL (0.550-1.02) Glomerular Filtration Rate Calc 93 mL/min (>90) BUN/Creatinine Ratio 23.0 (10.0-20.0) Serum Glucose 125 mg/dL (74-106) Calcium Level 9.7 mg/dL (8.7-10.4) Total Bilirubin 0.4 mg/dL (0.2-1.0) Aspartate Amino Transferase (AST) < 8 U/L (13-40) Alanine Aminotransferase (ALT) 12 U/L (7-40) Alkaline Phosphatase 90 U/L (46-116) Total Protein 6.8 g/dL (5.7-8.2) Albumin 4.1 g/dL (3.2-4.8) Urine Amorphous Crystals Few /hpf (None Seen) Other Laboratory Tests 12/02/24 05:24 Brief Hx & Hospital Course: 74-year-old female with a known history of depression, anxiety, asthma, bilateral knee arthroplasty, left hip arthroplasty, previous multiple spine surgery presented to the hospital with worsening pain found to have acute on chronic lumbar back pain. Patient was underwent MRI lumbar spine which shows postoperative changes no evidence of any acute fracture but there is significant stenosis at multiple levels. Patient was did have multiple surgery in the past. Three found to have UTI although asymptomatic patient was given IV antibiotics which will be switched to p.o. antibiotics. Patient was kept complaining of abdominal pain CT abdomen and pelvis was done which shows stool burden and distended gallbladder. Patient was denies any nausea vomiting and currently tolerating diet. Patient right upper quadrant ultrasound once says no acute cholecystitis then patient can be discharged to shelter facility. Currently radiology has plan of care discussed with the patient at patient bedside RN. Condition at Discharge: Stable Final Diagnosis/Problems List 74-year-old female with a known history of depression, anxiety, asthma, bilateral knee arthroplasty, left hip arthroplasty, previous multiple spine surgery presented to the hospital with worsening pain found to have 1. Acute on chronic lumbar back pain 2. Urinary tract infection 3. History of anxiety and depression 4. Left-sided abdominal pain, Discharge Disposition: Long Term Facility SNF Discharge Will this Physician continue t: No Discharge Instruct/Medications Diet: Cardiac 2g Na,low cholest Activity: No Restrictions, As Tolerated Follow Up/Referral: Follow up with the PCP and spine surgery upon discharge in one week Medications: As prescribed and reconciled Discharge Statement: "Patient was advised to return to the ER or call 911 if any headaches, dizziness, shortness of breath, chest pain, abdominal pain, bleeding, fevers, or worsening of medical condition. Patient was counseled about treatment plan, medications, possible side effects, patientverbalized understanding. All questions were answered to the best of my ability. This discharge took greater then 30 minutes in planning, reviewing documentation, counseling the patient, and discussing with other team members." ASSESSMENT ASSESSMENT Assessment 74-year-old female with a known history of depression, anxiety, asthma, bilateral knee arthroplasty, left hip arthroplasty, previous multiple spine surgery presented to the hospital with worsening pain found to have 1. Acute on chronic lumbar back pain 2. Urinary tract infection 3. History of anxiety and depression 4. Left-sided abdominal pain, Date of Service: Dec 04, 2024 Billing Provider: TALISHA ESCOTO MD Common Visit Codes: NOT BILLABLE TALISHA ESCOTO MD Dec 04, 2024 16:30
--- NOTE | 2024-12-04 16:55 | DVH ---
EXAM: US Abdomen Limited, Right Upper Quadrant CLINICAL INDICATION: right upper quadrant rule out acute cholecystitis TECHNIQUE: Real-time ultrasound of the right upper quadrant with image documentation. COMPARISON: None FINDINGS: LIVER: Liver measures up to 18.9 cm. No intrahepatic bile duct dilation. GALLBLADDER: Distended gallbladder. Negative Harvey's sign was reported by the operations engineer. No ga llstones. COMMON BILE DUCT: Common bile duct is prominent measuring 1.36 cm in diameter. No common bile duct stone is seen. PANCREAS: Unremarkable as visualized. RIGHT KIDNEY: Right kidney measures up to 11.2 cm. 2.2 cm right renal cysts. No stones. No hydro nephrosis. OTHER FINDINGS: Mild left hydronephrosis. . Left kidney measures up to 11.5 cm. . IMPRESSION: 1. Common bile duct is prominent measuring 1.36 cm in diameter. No common bile duct stone is seen. Further evaluation with MRCP or ERCP is recommended. 2. Mild left hydronephrosis.
[2024-12-05 01:00] VITALS: BP 130/67; PULSE 63; RESP 19; TEMP 97.8; O2SAT 97
[2024-12-05 05:43] VITALS: BP 130/48; PULSE 68; RESP 18; TEMP 97.8; O2SAT 96
[2024-12-05 08:00] VITALS: PULSE 58
[2024-12-05 08:59] VITALS: BP 140/63; PULSE 75; RESP 16; TEMP 98.7; O2SAT 97
[2024-12-05 12:58] VITALS: BP 128/79; PULSE 69; RESP 18; TEMP 98.6; O2SAT 95
== END 2024-12-05 15:45 | DRG 552 ==
LOC: ER 04:33 → EDUNIT# 04:33 → EDBD 04:33 → OVERFLOW 15:51 → TELE-EAST 12-02 23:11
PROVIDERS: ADMIT Internal Medicine; ATTEND Internal Medicine
DX: M47.26 Other spondylosis with radiculopathy, lumbar region (principal); N39.0 Urinary tract infection, site not specified; M51.16 Intervertebral disc disorders with radiculopathy, lumbar region; G89.29 Other chronic pain; J45.909 Unspecified asthma, uncomplicated; K82.8 Other specified diseases of gallbladder; F41.9 Anxiety disorder, unspecified; F32.A Depression, unspecified; Z96.642 Presence of left artificial hip joint; Z96.653 Presence of artificial knee joint, bilateral; Z88.1 Allergy status to other antibiotic agents; Z88.0 Allergy status to penicillin; Z88.2 Allergy status to sulfonamides; Z91.018 Allergy to other foods; Z79.899 Other long term (current) drug therapy; Z90.710 Acquired absence of both cervix and uterus
CPT/HCPCS: 36415; 71045; 72148; 73502; 74177; 76705; 80053; 81001; 85025; 93005; 96374; 96375; 96376; 97110; 97116; 97163; G0378; J2405

== ENCOUNTER 2025-04-15 14:09 | Emergency (ER) | payer OTHER ==
[~2025-04-15] VITALS: Ht 160 cm; Wt 68.1 kg
[~2025-04-15 14:09] MED LIST changes: -DEXT10TA PO; -DEXT15CA
[2025-04-15 14:12] VITALS: PULSE 71; RESP 20; O2SAT 99
--- NOTE | 2025-04-15 14:40 | ED.PDOC ---
Marni. trauma (HPI) HPI Comments 74 y/o F, BIBA, with PMHx of anxiety, asthma, depression, and thyroid disease presents to the ED for CC of fall injury. EMS reports, patient is coming from home where she called twice using a medical alert tag, in [id number] d/t weakness and frequent falls. Per EMS, patient endorses going to use the restroom when she slipped from the toilet and was then unable to get up off the floor. Patient was seen at [facility] prior for SS. At this time, patient additionally c/o, an earache which she believes may be contributing to symptoms causing increased lack of coordination. Patient denies head injury, dizziness, nausea, vomiting, hearing loss, back pain, hematuria, or dysuria. No other symptoms or modifying factors are present at this time. Chief Complaint: Fall Injury Time Seen by MD: 14:30 Primary Care Provider: YUNG Reviewed notes: Nurses Notes, Environmental Field Team Member Notes, Medications, Allergies Allergies: Coded Allergies: Prune (Verified Allergy, Severe, ALOC, 09/22/23) Spoke to pt at bedside to confirm allergies. Pt stated when she was given prune juice she instantly felt dizzy and development disability specialist to her having a coma. Penicillins (Verified Adverse Reaction, Intermediate, HIVES ALL OVER BODY, 09/22/23) Spoke with pt at bedside 09-22-23 to confirm penicillin allergy. Patient stated that allergic reaction occurred when she was a teenager. She doesn't recall having any swelling of the lips of shortness of breath. However, she experienced red hives all over her body. 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 Sulfa Antibiotics (Verified Adverse Reaction, Intermediate, ITCHINESS OF BODY, 09/22/23) Spoke to pt at bedside to confirm Sulfa allergy. Pt stated that when she had a Sulfa abx a few years ago she experiened itchiness all over her body Uncoded Allergies: MYCINS (Allergy, Unknown, 11/16/17) Home Meds Reported Medications Levothyroxine Sodium (Levothyroxine Sodium) 200 Mcg Tab 10/31/19 Oxybutynin Chloride (Ditropan Xl) 5 Mg Tab 10/31/19 Tizanidine Hydrochloride (Tizanidine Hcl) 4 Mg Tab 10/31/19 Topiramate (Topiramate) 100 Mg Tab 10/31/19 Zolpidem Tartrate (Zolpidem Tartrate) 5 Mg Tab 10/31/19 Bupropion HCl (Bupropion Hydrochloride) 100 Mg Tab 10/31/19 Fluoxetine Hcl (Fluoxetine Hcl) 40 Mg Cap 10/31/19 Ondansetron HCl (Ondansetron Hydrochloride) 4 Mg Tab 10/31/19 Famotidine (Famotidine) 20 Mg Tab 10/31/19 Fluoxetine Hcl (Fluoxetine Hcl) 20 Mg Cap, 40 MG PO DAILY for 30 Days, MG 10/17/19 Oxybutynin Chloride (Ditropan Xl) 5 Mg Tab, 5 MG PO DAILY, TAB 10/17/19 Bupropion Hcl (Bupropion Hcl) 100 Mg Tab, 150 MG PO Q8HR for 30 Days, MG 10/17/19 Multiple Vitamin (Multivitamins) Tab, 1 TAB PO DAILY, #90 TAB 3 Refills 11/16/17 Acyclovir (ZOVIRAX TABLET) 400 Mg Tb, 1 TAB PO DAILY, #60 TAB 3 Refills 11/16/17 Levothyroxine Sodium (Levothyroxine Sodium) 25 Mcg Tab, 25 MCG PO QAM, MCG 11/16/17 Tizanidine Hydrochloride (Zanaflex) 4 Mg Tab, 1 TAB PO BID, #60 TAB 11/16/17 Cyanocobalamin (B-12 Compliance Injection) 1,000 Mcg/Ml Kit, 1000 MCG IJ QWEEKLY, KIT 11/16/17 Modafinil (MODAFINIL) 200 Mg Tab, 200 MG PO for NARCOLEPSY, TAB 04/11/17 Past Medical History PAST MEDICAL HISTORY: Anxiety, Asthma, Depression, Thyroid Surgical History: Appendectomy, Hysterectomy 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: Denies all VICE [employer]IDENT [employer]RIAL RELATIONS Hx Family History Family History: Reviewed,noncontributory to illness, Family hx of HTN Social History Smoker: Non-Smoker Alcohol: Denies ETOH Use Drugs: Denies Drug Use Lives In: Home Constitutional: reports: weakness; denies: chills, diaphoresis, fatigue, fever, malaise, sweats, others EENTM: reports: ear pain; denies: blurred vision, double vision, ear bleeding, ear discharge, ear drainage, ear ringing, eye pain, eye redness, hearing loss, mouth pain, mouth swelling, nasal discharge, nose bleeding, nose congestion, nose pain, photophobia, tearing, throat pain, throat swelling, voice changes, others Respiratory: denies: cough, hemoptysis, orthopnea, SOB at rest, shortness of breath, SOB with excertion, stridor, wheezing, others Cardiovascular: denies: chest pain, dizzy spells, diaphoresis, Dyspnea on exertion, edema, irregular heart beat, left arm pain, lightheadedness, palpitations, PND, syncope, others Gastrointestinal: denies: abdomen distended, abdominal pain, blood streaked bowels, constipated, diarrhea, dysphagia, difficulty swallowing, hematemesis, melena, nausea, poor appetite, poor fluid intake, rectal bleeding, rectal pain, vomiting, others Genitourinary: denies: abnormal vagina bleeding, burning, dyspareunia, dysuria, flank pain, frequency, hematuria, incontinence, pain, , vagina discharge, urgency, others Neurological: denies: dizziness, fainting, headache, left sided numbness, left sided weakness, numbness, paresthesia, pre-existing deficit, right sided numbness, right sided weakness, seizure, speech problems, tingling, tremors, wea kness, others Musculoskeletal: denies: back pain, gout, joint pain, joint swelling, muscle pain, muscle stiffness, neck pain, others Integumetry: denies: bruises, change in color, change in hair/nails, dryness, l aceration, lesions, lumps, rash, wounds, others Allergic/Immunocompromised: denies: Difficulty Healing, Frequent Infections, Hives, Itching, others Hematologic/Lymphatic: denies: anemia, blood clots, easy bleeding, easy bruising, swollen glands, others Endocrine: denies: excessive hunger, excessive sweating, excessive thirst, excessive urination, flushing, intolerance to cold, intolerance to heat, unexplained weight gain, unexplained weight loss, others Psychiatric: denies: anxiety, bipolar disorder, depression, hopeless, panic disorder, schizophrenia, sleepless, suicidal, others All Other Systems: Reviewed and Negative Physical Exam General Appearance: Moderate Distress HEENT: Normal ENT Inspection, Pharynx Normal, TMs Normal Neck: Full Range of Motion, Non-Tender, Normal, Normal Inspection Respiratory: Chest Non-Tender, Lungs Clear, No Accessory Muscle Use, No Respiratory Distress, Normal Breath Sounds Cardiovascular: No Edema, No JVD, No Murmur, No Gallop, Normal Peripheral Pulses, Regular Rate/Rhythm Breast Exam: Deferred Gastrointestinal: No Organomegaly, Non Tender, No Pulsatile Mass, Normal Bowel Sounds, Soft Genitalia: Deferred Pelvic: Deferred Rectal: Deferred Extremities: No calf tenderness, No pedal edema Musculoskeletal : Apperance: Normal Neurologic: Alert, No Motor Deficits, Normal Affect, Normal Mood, No Sensory Deficits Cerebellar Function: NOT DONE Reflexes: NOT DONE Skin: Dry, Normal Color, Warm Lymphatic: No Adenopathy Was a procedure done? Was a procedure done?: No Differential Diagnosis Multiple Trauma: Fractures, Abrasions, Hematoma, Other (dehydration, UTI, Labyrinthitis) X-Ray, Labs, Meds, VS Vital Signs Date Time Temp Pulse Resp B/P (MAP) Pulse Ox O2 Delivery O2 Flow Rate FiO2 04/15/25 16:33 98.2 67 14 119/64 (82) 96 98.2 04/15/25 14:12 71 20 99 Room Air* 0 21 04/15/25 14:12 98.2 71 20 128/87 (101) 99 98.2 04/15/25 14:12 98.2 71 20 128/87 99 98.2 Lab Test 04/15/25 14:55 04/15/25 14:25 Range/Units White Blood Count 7.1 4.4-10.8 10^3/uL Red Blood Count 4.80 4.0-5.20 10^6/uL Hemoglobin 13.6 12.2-16.2 g/dL Hematocrit 40.4 36.0-46.0 % Mean Corpuscular Volume 84.0 80.0-100.0 fL Mean Corpuscular Hemoglobin 28.3 28.0-32.0 pg Mean Corpuscular Hemoglobin Concent 33.6 32.0-36.0 g/dL Red Cell Distribution Width 17.3 H 11.8-14.3 % Platelet Count 319 140-450 10^3/uL Mean Platelet Volume 7.9 6.9-10.8 fL Neutrophils (%) (Auto) 62.0 37.0-80.0 % Lymphocytes (%) (Auto) 29.1 10.0-50.0 % Monocytes (%) (Auto) 6.7 0.0-12.0 % Eosinophils (%) (Auto) 1.5 0.0-7.0 % Basophils (%) (Auto) 0.7 0.0-2.0 % Neutrophils # (Auto) 4.4 1.6-8.6 10 ^3/uL Lymphocytes # (Auto) 2.1 0.4-5.4 10 ^3/uL Monocytes # (Auto) 0.5 0-1.3 10 ^3/uL Eosinophils # (Auto) 0.1 0-0.8 10 ^3/uL Basophils # (Auto) 0 0-0.2 10 ^3/uL Nucleated Red Blood Cells 0.1 % Sodium Level 146 H 136-145 mmol/L Potassium Level 4.1 3.5-5.1 mmol/L Chloride Level 109 H 98-107 mmol/L Carbon Dioxide Level 26 20-31 mmol/L Anion Gap 11 5-15 Blood Urea Nitrogen 14 9-23 mg/dL Creatinine 0.61 0.550-1.02 mg/dL Glomerular Filtration Rate Calc 93 >90 mL/min BUN/Creatinine Ratio 23.0 H 10.0-20.0 Serum Glucose 103 74-106 mg/dL Calcium Level 9.0 8.7-10.4 mg/dL Troponin I High Sensitivity 4 </=34 ng/L Urine Color Colorless Yellow Urine Clarity Clear Clear Urine pH 6.5 5.0-9.0 Urine Specific Iaeger 1.006 1.001-1.035 Urine Protein Negative Negative Urine Ketones Negative Negative Urine Blood Negative Negative /uL Urine Nitrite Negative Negative Urine Bilirubin Negative Negative Urine Urobilinogen Normal Negative mg/dL Urine Leukocyte Esterase Negative Negative /uL Urine RBC 1 0 - 4 /hpf Urine Microscopic WBC < 1 0-5 /HPF Urine Squamous Epithelial Cells None seen <5 /hpf Urine Bacteria None seen None Seen /hpf Urine Glucose Normal Normal mg/dL Current Medications Medications (Trade) Dose Ordered Sig/Angelo Route Start Time Stop Time Status Last Admin Sodium Chloride 1,000 ml @ 1,000 mls/hr Q1H ONCE IV 04/15/25 14:30 04/15/25 15:29 DC 04/15/25 15:14 Patient alert. Status post fall. Reviewed her previous visit. Vitals stable. Similar situation last time. She did not hit her head. She does have surgery on her knee. States that she is having hard time standing up without help. No injuries seen. Possibly will need placement. Explained to the patient. Continue monitoring. Spoke with choice physician. Physical therapy has not seen the patient yet. Before any placement she will need physical therapy to evaluate her. Was instructed to admit the patient with our hospitalist. [address] [address] Ph: [phone] DIAGNOSTIC IMAGING Diagnostic Imaging Report : [id number] Signed PATIENT: BLESSING DALLAS ACCT: [id number] UNIT: [id number] : 1950 LOC: ER ROOM / BED: / AGE / SEX: 74 / F ADM STATUS: REG ER SERVICE 1431 ORDERING PHYSICIAN: YANN AMATO MD PROCEDURE(s): HWOCT - HEAD WITHOUT CONTRAST REASON: fall ORDER NUMBER(s): [id number], ACCESSION NUMBER(s): [id number] EXAM: CT HEAD WITHOUT CONTRAST INDICATION: fall TECHNIQUE: CT of the head without intravenous contrast. Radiation Dose Information: CT Dose: CTDI volume is 25 mGy. Dose-length product is 250 mGy*cm The dose indicators for CT are the volume Computed Tomography (CT) Dose Index (CTDIvol) and the Dose Length Product (DLP), and are measured in units of mGy and mGy-cm, respectively. These indicators are not patient dose, but values generated from the CT scanner acquisition factors. The report includes radiation exposure data for exposures received during this examination. COMPARISON: MRI BRAIN HEAD WO CONTRAST on DOS: 04/01/25, HEAD WITHOUT CONTRAST on DOS: 10/31/19 FINDINGS: There is no evidence of acute intracranial hemorrhage, extra-axial collection, mass effect, midline shift, herniation or hydrocephalus. The ventricles, sulci and cisterns are age appropriate. The canas-white differentiation is intact. Patchy periventricular and subcortical white matter hypoattenuation is nonspec ific but may be related to small vessel ischemic disease. The visualized paranasal sinuses and mastoid air cells are clear. The surrounding soft tissues and osseous structures are unremarkable. IMPRESSION: No acute intracranial abnormality. ATED BY: HONORIO ORTEGA MD DICTATED DATE/TIME: 04/15/25 1504 SIGNED BY: HONORIO ORTEGA MD SIGNED DATE/TIME: 04/15/25 1504 CC: - Time of 1ST Reevaluation: 15:00 Reevaluation 1ST: Unchanged Patient Education/Counseling: Diagnosis, Treatment Family Education/Counseling: No Family Present Departure 1 Departure Time of Disposition: 14:55 Impression: Primary Impression: Frequent falls Disposition: ADMITTED INPATIENT Admit to: Med Surg Condition: Guarded Critical Care Note Critical Care Time?: No Stability Stability form required: No Heart Score Heart Score: Heart Score Response (Comments) Value History N/A 0 EKG N/A 0 Age N/A 0 Risk Factors N/A 0 Troponin N/A 0 Total 0 I personally scribed for YANN AMATO MD ([email or web address]) on 04/15/25 at 14:40. Electronically submitted by Meka Kumari ([email or web address]). I personally scribed for YANN AMATO MD ([email or web address]) on 04/15/25 at 15:33. Electronically submitted by Meka Kumari ([email or web address]). YNAN AMATO MD Apr 15, 2025 14:40
--- NOTE | 2025-04-15 15:06 | DVH ---
EXAM: CT HEAD WITHOUT CONTRAST INDICATION: fall TECHNIQUE: CT of the head without intravenous contrast. Radiation Dose Information: CT Dose: CTDI volume is 25 mGy. Dose-length product is 250 mGy*cm The dose indicators for CT are the volume Computed Tomography (CT) Dose Index (CTDIvol) and the Dose Length Product (DLP), and are measured in units of mGy and mGy-cm, respectively. These indicators are not patient dose, but values generated from the CT scanner acquisition factors. The report includes radiation exposure data for exposures received during this examination. COMPARISON: MRI BRAIN HEAD WO CONTRAST on DOS: 04/01/25, HEAD WITHOUT CONTRAST on DOS: 10/31/19 FINDINGS: There is no evidence of acute intracranial hemorrhage, extra-axial collection, mass effect, midline s hift, herniation or hydrocephalus. The ventricles, sulci and cisterns are age appropriate. The canas-white differentiation is intact. Patchy periventricular and subcortical white matter hypoattenuation is nonspecific but may be related to small vessel ischemic disease. The visualized paranasal sinuses and mastoid air cells are clear. The surrounding soft tissues and osseous structures are unremarkable. IMPRESSION: No acute intracranial abnormality.
[2025-04-15] MEDS: SODIUM CHLORIDE 0.9% 1,000 ML IV ONE (15:14)
[2025-04-15 15:19] LABS: Hematocrit 40.4 % (36.0-46.0); Hemoglobin 13.6 g/dL (12.2-16.2); Mean Corpuscular Hemoglobin 28.3 pg (28.0-32.0); Mean Corpuscular Volume 84.0 fL (80.0-100.0); Nucleated Red Blood Cells % 0.1 %; Potassium 4.1 mmol/L (3.5-5.1)
[2025-04-15 15:19] LABS: Urine Protein, UAD Negative (Negative)
[2025-04-15 15:20] LABS: Anion Gap 11 (5-15); Calcium 9.0 mg/dL (8.7-10.4); Carbon Dioxide 26 mmol/L (20-31)
[2025-04-15 15:21] LABS: Chloride 109 mmol/L (98-107); Sodium 146 mmol/L (136-145)
[2025-04-15 15:25] LABS: BUN/Creatinine Ratio 23.0 (10.0-20.0); Blood Urea Nitrogen 14 mg/dL (9-23); Glucose 103 mg/dL (74-106)
[2025-04-15 20:00] VITALS: PULSE 75; RESP 14; O2SAT 95
[2025-04-15] MEDS: ONDANSETRON HCL 4 MG/2 ML VIAL IV ONE (21:50)
[2025-04-15] MEDS: ONDANSETRON HCL 4 MG/2 ML VIAL ONE (21:53)
[2025-04-16] MEDS: fentaNYL CITRATE 100 MCG/2 ML VL IV ONE (00:08)
--- NOTE | 2025-04-16 03:08 | DVH ---
Exam: CT CT AB PEL WO CON-NO ORAL OR IV History: abd pain Comparison Study: CT ABD PELVIS WO CONTRAST on DOS: 10/31/19 Technique: Multidetector spiral CT of the abdomen was performed from lung bases to pubic symphysis. I maging was performed without IV contrast. Axial, coronal and sagittal multiplanar reformats were obta ined from the axial data set by the technologist. Radiation Dose : 1. Abdomen/Pelvis: CTDIvol 20.85 mGy, DLP 2.96 mGy*cm. Findings: Evaluation of solid organs is limited due to lack of intravenous contrast use. Beam hardening and str eak artifact from arm down positioning further limits assessment. Lower Chest: Nodular patchy ground-glass attenuation within the medial right lower lobe. Normal hear t size with dense mitral annular calcification. Liver: Mildly enlarged, unchanged. Gallbladder and Biliary Tree: Unremarkable Pancreas: Moderate atrophy. Spleen: Unremarkable. Adrenal Glands: Unremarkable. Kidneys/Ureters: No obstruction or other acute finding. Redemonstrated 4 mm stone in the right inferi or collecting system, and bilateral renal sinus cysts. Bladder: Contracted around a Reese catheter without obvious abnormality. Pelvic Organs: Absent uterus. Bowel: No evidence of bowel wall thickening or obstruction. Postsurgical change of the stomach aditya tible with Brien-en-Y gastric bypass. Nonvisualized appendix. Colonic diverticulosis without diverticu litis. Vasculature: Minimal atherosclerosis. Lymphadenopathy: No obvious adenopathy. Peritoneum: No ascites, free air, or fluid collection. Redemonstrated right pelvic sidewall metallic clips. Abdominal Wall: Ventral postsurgical change. [id number]-right flank subcutaneous stranding con sistent with chronic medication injections. Musculoskeletal: No acute findings. Osteopenia. Degenerative change of the spine and pelvis. Parti ally imaged left femoral internal fixation hardware. IMPRESSION: 1. No evidence of urinary obstruction or other acute abdominopelvic abnormality. 2. Nonobstructing right nephrolith. Additional chronic and incidental abdominopelvic findings as abov e. 3. Mild nodular 2 patchy ground-glass attenuation in the right lung base suggestive of atypical infec tion. Radiation optimization: All CT scans at this facility use at least one of these dose optimization adalid hniques: automated exposure control mA and/or kV adjustment per patient size (includes targeted exam s where dose is matched to clinical indication) or iterative reconstruction.
[2025-04-16] MEDS: ONDANSETRON HCL 4 MG/2 ML VIAL IV ONE ×2 (06:00→09:52)
[2025-04-16] MEDS: MORPHINE SULFATE INJ 2 MG/ml SYRG IV ONE (06:29)
[2025-04-16 07:32] VITALS: PULSE 73; RESP 14; O2SAT 97
[2025-04-16] MEDS: MECLIZINE HCL 25 MG TAB PO ONE (09:52)
[2025-04-16] MEDS: MORPHINE SULFATE 4 MG/ML SYR/VIAL IV ONE (09:53)
[2025-04-16] MEDS: HALOPERIDOL LACTATE 5 MG/ML INJ VIAL IM ONE (12:58)
--- NOTE | 2025-04-16 15:59 | DVHINCON2 ---
Date of service: Apr 16, 2025 Reason for Consultation Help with the discharge plan to a senior living facility for general physical weakness History of Present Illness 74 y/o F, BIBA, with PMHx of anxiety, asthma, depression, and thyroid disease presents to the ED for CC of fall injury. EMS reports, patient is coming from home where she called twice using a medical alert tag, in [id number] d/t weakness and frequent falls. Per EMS, patient endorses going to use the restroom when she slipped from the toilet and was then unable to get up off the floor. Patient was seen at [facility] x1week prior for SS. At this time, patient additionally c/o, an earache which she believes may be contributing to symptoms causing increased lack of coordination. Patient denies head injury, dizziness, nausea, vomiting, hearing loss, back pain, hematuria, or dysuria. No other symptoms or modifying factors are present at this time. Past Medical History Anxiety, Asthma, Depression, Thyroid Past Surgical History Appendectomy, Hysterectomy Family History: Asthma G8 FATHER UNCLE UNCLE Cardiovascular disease G8 MOTHER FH: CHF (congestive heart failure) FH: cancer Allergies: Coded Allergies: Prune (Verified Allergy, Severe, ALOC, 09/22/23) Spoke to pt at bedside to confirm allergies. Pt stated when she was given prune juice she instantly felt dizzy and accreditation manager to her having a coma. Penicillins (Verified Adverse Reaction, Intermediate, HIVES ALL OVER BODY, 09/22/23) Spoke with pt at bedside 09-22-23 to confirm penicillin allergy. Patient stated that allergic reaction occurred when she was a teenager. She doesn't recall having any swelling of the lips of shortness of breath. However, she experienced red hives all over her body. Since then she has only had Clindamycin PO for a dental procedure as well as Ertapenem in 2019 at [facility] for ESBL in her urine. Sulfa Antibiotics (Verified Adverse Reaction, Intermediate, ITCHINESS OF BODY, 09/22/23) Spoke to pt at bedside to confirm Sulfa allergy. Pt stated that when she had a Sulfa abx a few years ago she experiened itchiness all over her body Uncoded Allergies: MYCINS (Allergy, Unknown, 11/16/17) Home Meds Reported Medications Levothyroxine Sodium (Levothyroxine Sodium) 200 Mcg Tab 10/31/19 Oxybutynin Chloride (Ditropan Xl) 5 Mg Tab 10/31/19 Tizanidine Hydrochloride (Tizanidine Hcl) 4 Mg Tab 10/31/19 Topiramate (Topiramate) 100 Mg Tab 10/31/19 Zolpidem Tartrate (Zolpidem Tartrate) 5 Mg Tab 10/31/19 Bupropion HCl (Bupropion Hydrochloride) 100 Mg Tab 10/31/19 Fluoxetine Hcl (Fluoxetine Hcl) 40 Mg Cap 10/31/19 Ondansetron HCl (Ondansetron Hydrochloride) 4 Mg Tab 10/31/19 Famotidine (Famotidine) 20 Mg Tab 10/31/19 Fluoxetine Hcl (Fluoxetine Hcl) 20 Mg Cap, 40 MG PO DAILY for 30 Days, MG 10/17/19 Oxybutynin Chloride (Ditropan Xl) 5 Mg Tab, 5 MG PO DAILY, TAB 10/17/19 Bupropion Hcl (Bupropion Hcl) 100 Mg Tab, 150 MG PO Q8HR for 30 Days, MG 10/17/19 Multiple Vitamin (Multivitamins) Tab, 1 TAB PO DAILY, #90 TAB 3 Refills 11/16/17 Acyclovir (ZOVIRAX TABLET) 400 Mg Tb, 1 TAB PO DAILY, #60 TAB 3 Refills 11/16/17 Levothyroxine Sodium (Levothyroxine Sodium) 25 Mcg Tab, 25 MCG PO QAM, MCG 11/16/17 Tizanidine Hydrochloride (Zanaflex) 4 Mg Tab, 1 TAB PO BID, #60 TAB 11/16/17 Cyanocobalamin (B-12 Compliance Injection) 1,000 Mcg/Ml Kit, 1000 MCG IJ QWEEKLY, KIT 11/16/17 Modafinil (MODAFINIL) 200 Mg Tab, 200 MG PO for NARCOLEPSY, TAB 04/11/17 Current Medications Current Medications Medications (Trade) Dose Ordered Sig/Angelo Route PRN Reason Start Time Stop Time Status Last Admin Acyclovir (Zovirax Tablet) 400 mg DAILY PO 04/17/25 10:00 UNV Bupropion HCl (Wellbutrin Tablet) 150 mg Q8HR PO 04/16/25 22:00 UNV Famotidine (Pepcid Tablet) 20 mg DAILY PO 04/17/25 10:00 UNV Fluoxetine HCl (PROzac CAPSULE) 40 mg DAILY PO 04/17/25 10:00 UNV Levothyroxine Sodium (Synthroid Tablet) 25 mcg QAM PO 04/17/25 07:00 UNV Multivitamins (Mvi Tab) 1 tab DAILY PO 04/17/25 10:00 UNV Topiramate (Topamax) 100 mg BID PO 04/16/25 22:00 UNV Zolpidem Tartrate (Ambien) 10 mg QPM PO 04/16/25 18:00 UNV Oxybutynin Chloride (Ditropan Tablet) 5 mg Q12HR PO 04/16/25 22:00 UNV Review of Systems No complaints of chest pain or shortness for breath fevers chills or sweats. Other review of systems reviewed normal besides her chronic pain. Vital Signs Vital Signs Date Time Temp Pulse Resp B/P (MAP) Pulse Ox O2 Delivery O2 Flow Rate FiO2 04/16/25 12:59 68 15 139/66 (90) 96 04/16/25 07:32 98.7 98.7 04/16/25 07:32 Room Air* 0 21 Physical Exam Per ER physician she is generally weak but no focal deficits noted. Rest of her physical exam is normal. Labs/Diagnostic Data Labs Test 04/15/25 14:55 04/15/25 14:25 Range/Units White Blood Count 7.1 4.4-10.8 10^3/uL Red Blood Count 4.80 4.0-5.20 10^6/uL Hemoglobin 13.6 12.2-16.2 g/dL Hematocrit 40.4 36.0-46.0 % Mean Corpuscular Volume 84.0 80.0-100.0 fL Mean Corpuscular Hemoglobin 28.3 28.0-32.0 pg Mean Corpuscular Hemoglobin Concent 33.6 32.0-36.0 g/dL Red Cell Distribution Width 17.3 H 11.8-14.3 % Platelet Count 319 140-450 10^3/uL Mean Platelet Volume 7.9 6.9-10.8 fL Neutrophils (%) (Auto) 62.0 37.0-80.0 % Lymphocytes (%) (Auto) 29.1 10.0-50.0 % Monocytes (%) (Auto) 6.7 0.0-12.0 % Eosinophils (%) (Auto) 1.5 0.0-7.0 % Basophils (%) (Auto) 0.7 0.0-2.0 % Neutrophils # (Auto) 4.4 1.6-8.6 10 ^3/uL Lymphocytes # (Auto) 2.1 0.4-5.4 10 ^3/uL Monocytes # (Auto) 0.5 0-1.3 10 ^3/uL Eosinophils # (Auto) 0.1 0-0.8 10 ^3/uL Basophils # (Auto) 0 0-0.2 10 ^3/uL Nucleated Red Blood Cells 0.1 % Sodium Level 146 H 136-145 mmol/L Potassium Level 4.1 3.5-5.1 mmol/L Chloride Level 109 H 98-107 mmol/L Carbon Dioxide Level 26 20-31 mmol/L Anion Gap 11 5-15 Blood Urea Nitrogen 14 9-23 mg/dL Creatinine 0.61 0.550-1.02 mg/dL Glomerular Filtration Rate Calc 93 >90 mL/min BUN/Creatinine Ratio 23.0 H 10.0-20.0 Serum Glucose 103 74-106 mg/dL Calcium Level 9.0 8.7-10.4 mg/dL Troponin I High Sensitivity 4 </=34 ng/L Urine Color Colorless Yellow Urine Clarity Clear Clear Urine pH 6.5 5.0-9.0 Urine Specific [place] 1.006 1.001-1.035 Urine Protein Negative Negative Urine Ketones Negative Negative Urine Blood Negative Negative /uL Urine Nitrite Negative Negative Urine Bilirubin Negative Negative Urine Urobilinogen Normal Negative mg/dL Urine Leukocyte Esterase Negative Negative /uL Urine RBC 1 0 - 4 /hpf Urine Microscopic WBC < 1 0-5 /HPF Urine Squamous Epithelial Cells None seen <5 /hpf Urine Bacteria None seen None Seen /hpf Urine Glucose Normal Normal mg/dL Assessment Given her fall and came back to the ER after recent hospitalization and discharge home we will have physical therapy evaluation in the ER. Patient had home health and safety evaluation arranged upon her last discharge. Her workup during this ER visit is unremarkable. Labs head CT are normal. Physical therapy has evaluated her and recommended senior living facility for her weakness given she had lives alone with a fall. Therefore I have talked to [facility] on-call case preparer and liner and they are able to arrange a senior living facility bed for her. Therefore she has been transferred there from ER in stable condition. [facility] group physician at senior living facility we will be following her and further evaluate and manage as deemed appropriate. Discussed with the ER physician Dr. Mcintosh regarding discharge care plan. Problems(with codes): (1) DDD (degenerative disc disease), lumbar (2) Acute exacerbation of chronic low back pain (3) Frequent falls (4) Degenerative joint disease Plan discussed with: Other STEVE WOLF MD Apr 16, 2025 15:59
[2025-04-16] MEDS ORDERED: ZOLPIDEM TARTRATE 5 MG TAB PO SCH (18:00)
[2025-04-16 19:35] VITALS: BP 157/83; PULSE 67; RESP 16; TEMP 98.2; O2SAT 96
[2025-04-16] MEDS ORDERED: TOPIRAMATE 100 MG TAB PO SCH (22:00)
[2025-04-16] MEDS ORDERED: OXYBUTYNIN CHL 5 MG TAB PO SCH (22:00)
[2025-04-17] MEDS ORDERED: LEVOTHYROXINE SODIUM 25 MCG TAB PO SCH (07:00)
[2025-04-17] MEDS ORDERED: ACYCLOVIR 400 MG TAB PO SCH (10:00)
[2025-04-17] MEDS ORDERED: FAMOTIDINE 20 MG TAB PO SCH (10:00)
[2025-04-17] MEDS ORDERED: MULTIPLE VITAMIN TAB PO SCH (10:00)
== END 2025-04-16 19:35 ==
LOC: EDBD 14:09 → ER 14:09
DX: R29.6 Repeated falls (principal); R53.1 Weakness; F41.9 Anxiety disorder, unspecified; F32.A Depression, unspecified; E03.9 Hypothyroidism, unspecified; J45.909 Unspecified asthma, uncomplicated; Z79.899 Other long term (current) drug therapy; Z90.49 Acquired absence of other specified parts of digestive tract; Z90.710 Acquired absence of both cervix and uterus; Z88.0 Allergy status to penicillin; Z88.1 Allergy status to other antibiotic agents; Z88.2 Allergy status to sulfonamides
CPT/HCPCS: 36415; 70450; 74176; 80048; 81001; 84484; 85025; 96361; 96372; 96374; 96375; 96376; 97163; 99285; J1630; J2270; J2405; J3010; J7030; J8597